=== PATIENT | female | born 1965 | race Caucasian/White ===

== ENCOUNTER 2018-12-20 06:49 | Inpatient (IN) | payer BC ==
[~2018-12-20 06:49] MED LIST: Acetaminophen 325 MG Tab PO SCH; Bisacodyl 5 MG Tab PO PRN; Lidocaine 1%/Sod Bicarbonate in NS 8.4% 1 ML Syringe IDERM PRN; Magnesium Hydroxide 400 MG/5 ML Susp 30 ML Cup PO PRN; Morphine 2 MG/ML Syringe IVPUSH PRN; Naloxone 0.4 MG/ML SDV IVPUSH PRN; Ondansetron 4 MG/2 ML SDV IVPUSH PRN; Pregabalin 25 MG Cap PO SCH; Sennosides 8.6 MG Tab PO PRN; Sodium Chloride 0.9% 10 ML Syringe FLUSH PRN; ceFAZolin 2 GM in Premix Bag 1 BAG IV SCH; oxyCODONE ER 10 MG TAB.ER PO SCH
[2018-12-20] MEDS ORDERED: Rocuronium 50 MG/5 ML Vial ONE (07:06)
[2018-12-20] MEDS ORDERED: Succinylcholine/Normal Saline 100 MG/5 ML Syringe ONE (07:06)
[2018-12-20] MEDS ORDERED: Lidocaine 1% 4 ML ONE (07:06)
[2018-12-20] MEDS ORDERED: Ondansetron 4 MG/2 ML SDV ONE (07:06)
[2018-12-20] MEDS ORDERED: Lactated Ringers 1,000 ML ONE (07:06)
[2018-12-20] MEDS ORDERED: Ketorolac 30 MG/ML SDV ONE (07:07)
[2018-12-20] MEDS ORDERED: Bupivacaine 0.25% 10 ML SDV ONE (07:07)
[2018-12-20] MEDS ORDERED: Dexamethasone 4 MG/ML 5 ML MDV ONE (07:07)
[2018-12-20] MEDS ORDERED: ceFAZolin 1 GM Vial ONE ×2 (07:07→07:24)
[2018-12-20] MEDS ORDERED: Propofol 200 MG/20 ML SDV ONE ×2 (07:07→09:08)
[2018-12-20] MEDS ORDERED: Midazolam 1 MG/ML 2 ML SDV ONE (07:07)
[2018-12-20] MEDS ORDERED: fentaNYL 250 MCG/5 ML SDV ONE (07:07)
[2018-12-20] MEDS: Lactated Ringers 1,000 ML IV SCH ×2 (07:15→12:01)
[2018-12-20] MEDS ORDERED: EPINEPHrine 1 MG/1 ML Amp ONE (07:19)
[2018-12-20] MEDS ORDERED: Ropivacaine 0.5% 5 MG/ML 30 ML SDV ONE (07:19)
[2018-12-20] MEDS ORDERED: Vancomycin 1 GM SDV ONE (07:24)
[2018-12-20] MEDS ORDERED: Iodine/Sodium Iodide 2% Tincture 30 ML Bottle ONE (07:25)
[2018-12-20] MEDS ORDERED: Lidocaine 1% 2 ML ONE (07:26)
--- NOTE | 2018-12-20 08:27 | PCM.SN ---
- Free Text/Narrative Note: Anesthesia Note: (Left Interscalene Block Note) Date: 12/20/2018 Time Out: 0749 Start: 0750 Stop: 0802 Left interscalene block under US guidance for postoperative pain control requested by Dr. Horton. Patient chart reviewed, risk/benefits discussed with patient, consent obtained. Patient positioned supine, monitors/alarms on, oxygen placed via nasal cannula at 2 LPM. IV sedation administered: Versed 2mg IV, Fentanyl 100mcg IV given in prior to block placement. See Nursing Notes. Left shoulder prepped with two chlorapreps. Sterile drapes placed with aseptic technique noted. Under US guidance, left subclavian artery visualized along with the left brachial plexus. Plexus followed up to C6 cricoid level, and area localized with 1mls of 1% lidocaine. 22gauge 2 inch stimiplex needle advanced under US with 0.6mV with stimulation of biceps noted. Good stimulation noted with decreased voltage and absent at 0.2mVs. 1ml of Normal Saline injected with loss of stimulation noted to confirm needle not placed intraneurally. Incremental dosing of 5mls with negative aspiration noted prior to each injection of 0.5% ropivacaine with 1:200,000 epinephrine. Total volume=30mls. Patient tolerated procedure well. No complications noted. Please refer to nurses notes for vital signs. Leila Morrow CRNA
[2018-12-20] MEDS ORDERED: Phenylephrine/Normal Saline 100 MCG/ML 10 ML Syringe ONE (09:27)
[2018-12-20] MEDS: ceFAZolin 1 GM Vial ONE ×2 (10:05→10:11)
--- NOTE | 2018-12-20 10:09 | PCM.PREANE ---
Preanesthetic Assessment - Anesthesia/Transfusion/Family Hx Anesthesia History: Prior Anesthesia Reaction Family History of Anesthesia Reaction: No Transfusion History: No Prior Transfusion(s) - Review of Systems General: No Symptoms Pulmonary: No Symptoms (Former Smoker, Quit 2 years ago, hoarse voice, dry cough on occasion. ) Cardiovascular: No Symptoms (Murmur noted, no intervention needed per primary care. No symptoms. > 4 MET capacity. ) Gastrointestinal: No Symptoms Neurological: Headache (Migraines) Other: Reports: None (Neck injury at 17 years old, C2 healed. C5-C7 Fusion, good ROM. Morbid Obesity BMI 44. ), Thyroid Problems - Physical Assessment NPO Status Date: 12/19/18 NPO Status Time: 22:30 Vital Signs: Last Vital Signs Temp 36.1 C 12/20/18 07:00 Pulse 70 12/20/18 08:05 Resp 13 12/20/18 08:05 BP 113/62 12/20/18 08:05 Pulse Ox 96 12/20/18 08:05 Height: 1.73 m Weight: 129.727 kg ASA Class: 3 Mental Status: Alert & Oriented x3 Airway Class: Mallampati = 1 Dentition: Reports: Normal Dentition Thyro-Mental Finger Breadths: 2 Mouth Opening Finger Breadths: 3 ROM/Head Extension: Full Lungs: Clear to Auscultation, Normal Respiratory Effort Cardiovascular: Regular Rate, Regular Rhythm - Lab Values: Laboratory Last Values MRSA (PCR) Negative 11/20/18 09:20 - Allergies Allergies/Adverse Reactions: Allergies Allergy/AdvReac Type Severity Reaction Status Date / Time Iodinated Contrast Media Allergy Anaphylactic Verified 12/19/18 14:21 [Iodinated Contrast Media - Shock IV Dye] Penicillins Allergy Rash Verified 12/19/18 14:21 naproxen sodium [From Aleve] AdvReac Stomach Verified 12/19/18 14:21 Ache Sulfa (Sulfonamide AdvReac Nausea Verified 12/19/18 14:21 Antibiotics) - Anesthesia Plan Pre-Op Medication Ordered: Anxiolytic - Acknowledgements Anesthesia Type Planned: General Anesthesia, Regional Block (Interscalene Nerve Block) Pt an Appropriate Candidate for the Planned Anesthesia: Yes Alternatives and Risks of Anesthesia Discussed w Pt/Guardian: Yes Pt/Guardian Understands and Agrees with Anesthesia Plan: Yes PreAnesthesia Questionnaire Other HEENT History: myringitis Cardiovascular History: Reports: High Cholesterol Respiratory History: Reports: None Gastrointestinal History: Reports: None Genitourinary History: Reports: Other (See Below) Other Genitourinary History: diagnostic laparoscopy with lysis of adhesions [employer]IAN History: Reports: Endometriosis, Spontaneous Musculoskeletal History: Reports: Other (See Below) Other Musculoskeletal History: right knee fracture, muscle spasm, back pain, rib fracture, lateral epicondylitis, left shoulder pain, right foot pain Neurological History: Reports: Migraines, Other (See Below) Other Neuro History: neck injury, head trauma, c3 cervical fracture Psychiatric History: Reports: None Endocrine/Metabolic History: Reports: Hypothyroidism, Obesity/BMI 30+ Hematologic History: Reports: None Immunologic History: Reports: None Oncologic (Cancer) History: Reports: None Dermatologic History: Reports: None - Past Surgical History Head Surgeries/Procedures: Reports: None HEENT Surgical History: Reports: LASIK Cardiovascular Surgical History: Reports: None Respiratory Surgical History: Reports: None GI Surgical History: Reports: Colonoscopy, EGD Female Surgical History: Reports: Hysterectomy Male Surgical History: Reports: None Endocrine Surgical History: Reports: None Neurological Surgical History: Reports: C-Spine, Other (See Below) Other Neurological Surgeries/Procedures: c5c7 fusion Musculoskeletal Surgical History: Reports: Other (See Below) Other Musculoskeletal Surgeries/Procedures:: knee hardware removal, bilateral total knee replacements Oncologic Surgical History: Reports: None Dermatological Surgical History: Reports: None - SUBSTANCE USE Smoking Status *Q: Former Smoker Recreational Drug Use History: No - HOME MEDS Home Medications: Home Meds Levothyroxine 200 mcg PO DAILY 07/24/14 [History] valACYclovir HCl [valACYclovir] 1,000 tab PO BID PRN 08/01/14 [History] Cholecalciferol (Vitamin D3) [Vitamin D3] 5,000 unit PO DAILY 12/19/18 [History] Clindamycin HCl [Cleocin] 150 mg PO ASDIRECTED PRN 12/19/18 [History] Cyclobenzaprine [Flexeril] 10 mg PO BEDTIME PRN 12/19/18 [History] traMADol [Ultram] 50 mg PO Q6H PRN 12/19/18 [History] - CURRENT (IN HOUSE) MEDS Current Meds: Current Medications Acetaminophen (Tylenol) 975 mg PO ONETIME [facility] Stop: 12/20/18 12:30 Last Admin: 12/20/18 07:07 Dose: 975 mg Aspirin (Ecotrin) 325 mg PO BID [facility] Bisacodyl (Dulcolax) 5 mg PO DAILY PRN PRN Reason: Constipation Docusate Sodium (Colace) 100 mg PO BID [facility] Famotidine (Pepcid) 20 mg PO Q12H [facility] Lactated Ringer's (Ringers, Lactated) 1,000 mls @ 125 mls/hr IV ASDIRECTED [facility] Stop: 12/20/18 23:00 Last Admin: 12/20/18 07:15 Dose: 125 mls/hr Cefazolin Sodium/Dextrose 2 gm (/ Premix) 50 mls @ 100 mls/hr IV Q8H [facility] Stop: 12/21/18 07:29 Ketorolac Tromethamine (Toradol) 15 mg IVPUSH Q6H PRN PRN Reason: Pain Lidocaine/Sodium Bicarbonate (Buffered Lidocaine 1% In Ns 8.4%) 0.25 ml IDERM ONETIME PRN PRN Reason: Prior to IV Start Stop: 12/20/18 18:00 Last Admin: 12/20/18 07:14 Dose: 0.25 ml Magnesium Hydroxide (Milk Of Magnesia) 30 ml PO BID PRN PRN Reason: Constipation Morphine Sulfate (Morphine) 2 mg IVPUSH Q2H PRN PRN Reason: Breakthrough Pain Naloxone HCl (Narcan) 0.1 mg IVPUSH Q5M PRN PRN Reason: Oversedation Ondansetron HCl (Zofran) 4 mg IVPUSH Q6H PRN PRN Reason: Nausea/Vomiting Oxycodone HCl (Oxycontin) 10 mg PO ONETIME [facility] Stop: 12/20/18 12:30 Last Admin: 12/20/18 07:08 Dose: 10 mg Oxycodone/Acetaminophen (Percocet 325-5 Mg) 1 - 2 tab PO Q4H PRN PRN Reason: Pain Pregabalin (Lyrica) 50 mg PO ONETIME [facility] Stop: 12/20/18 12:30 Last Admin: 12/20/18 07:08 Dose: 50 mg Senna (Senna) 8.6 mg PO BID PRN PRN Reason: Constipation Sodium Chloride (Saline Flush) 10 ml FLUSH ASDIRECTED PRN PRN Reason: Keep Vein Open Stop: 12/20/18 18:00 Discontinued Medications Bupivacaine HCl (Sensorcaine-Mpf 0.25%) Confirm Administered Dose 10 ml .ROUTE .ST-[facility] ONE Stop: 12/20/18 07:08 Cefazolin Sodium (Ancef) Confirm Administered Dose 2 gm .ROUTE .ST-[facility] ONE Stop: 12/20/18 07:07 Cefazolin Sodium (Ancef) Confirm Administered Dose 1 gm .ROUTE .ST-[facility] ONE Stop: 12/20/18 07:08 Cefazolin Sodium (Ancef) Confirm Administered Dose 2 gm .ROUTE .ST-[facility] ONE Stop: 12/20/18 07:25 Dexamethasone (Dexamethasone) Confirm Administered Dose 20 mg .ROUTE .ST-[facility] ONE Stop: 12/20/18 07:08 Epinephrine HCl (Adrenalin) Confirm Administered Dose 1 mg .ROUTE .[facility] ONE Stop: 12/20/18 07:20 Fentanyl (Sublimaze) Confirm Administered Dose 250 mcg .ROUTE .ST-[facility] ONE Stop: 12/20/18 07:08 Cefazolin Sodium/Dextrose 2 gm (/ Premix) 50 mls @ 100 mls/hr IV Q8H [facility] Stop: 12/20/18 22:59 Lidocaine HCl (Xylocaine-Mpf 1%) Confirm Administered Dose 4 mls @ as directed .ROUTE .[facility] ONE Stop: 12/20/18 07:07 Lactated Ringer's (Ringers, Lactated) Confirm Administered Dose 1,000 mls @ as directed .ROUTE .[facility] ONE Stop: 12/20/18 07:07 Lidocaine HCl (Xylocaine-Mpf 1%) Confirm Administered Dose 2 mls @ as directed .ROUTE .[facility] ONE Stop: 12/20/18 07:27 Iodine (Iodine 2% Mild Tincture) Confirm Administered Dose 30 ml .ROUTE .ST- MED ONE Stop: 12/20/18 07:26 Ketorolac Tromethamine (Toradol) Confirm Administered Dose 30 mg .ROUTE .ST- MED ONE Stop: 12/20/18 07:08 Midazolam HCl (Versed 1 Mg/Ml) Confirm Administered Dose 2 mg .ROUTE .STK-[facility] ONE Stop: 12/20/18 07:08 Ondansetron HCl (Zofran) Confirm Administered Dose 4 mg .ROUTE .ST-[facility] ONE Stop: 12/20/18 07:07 Phenylephrine HCl (Phenylephrine In Ns 100 Mcg/Ml) Confirm Administered Dose 1 mg .ROUTE .STK-MED ONE Stop: 12/20/18 09:28 Propofol (Diprivan 20 Ml) Confirm Administered Dose 400 mg .ROUTE .STK-MED ONE Stop: 12/20/18 07:08 Propofol (Diprivan 20 Ml) Confirm Administered Dose 200 mg .ROUTE .STK-MED ONE Stop: 12/20/18 09:09 Rocuronium Beemer (Zemuron) Confirm Administered Dose 50 mg .ROUTE .STK-MED ONE Stop: 12/20/18 07:07 Ropivacaine (Naropin 0.5%) Confirm Administered Dose 30 ml .ROUTE .[facility]-MED ONE Stop: 12/20/18 07:20 Succinylcholine Chloride (Succinylcholine In Ns Pf) Confirm Administered Dose 100 mg .ROUTE .STK-MED ONE Stop: 12/20/18 07:07 Tranexamic Acid (Cyklokapron) Confirm Administered Dose 1,000 mg .ROUTE .STK- MED ONE Stop: 12/20/18 07:25 Vancomycin HCl (Vancomycin) Confirm Administered Dose 1 gm .ROUTE .STK-MED ONE Stop: 12/20/18 07:25
[2018-12-20] MEDS ORDERED: HYDROmorphone 0.5 MG/0.5 ML Syringe IVPUSH PRN (10:20)
[2018-12-20] MEDS ORDERED: fentaNYL 100 MCG/2 ML SDV EPIDUR PRN (10:20)
[2018-12-20] MEDS ORDERED: Albuterol 0.083% 2.5 MG/3 ML Neb Soln NEB PRN (10:20)
[2018-12-20] MEDS ORDERED: Ondansetron 4 MG/2 ML SDV IVPUSH PRN (10:20)
[2018-12-20] MEDS ORDERED: diphenhydrAMINE 50 MG/ML SDV IVPUSH PRN (10:20)
[2018-12-20] MEDS ORDERED: Scopolamine 1.5 MG Transdermal Patch TOP PRN (10:20)
[2018-12-20] MEDS ORDERED: Neostigmine Methylsulfate 1 MG/ML 5 ML Syringe ONE (10:30)
--- NOTE | 2018-12-20 10:55 | PCM.POSTAN ---
POST ANESTHESIA ASSESSMENT - MENTAL STATUS Mental Status: Other (Drowsy) - VITAL SIGNS Vital Signs: Last Vital Signs 1049 135/81 82 11 92% 97.9F - RESPIRATORY Respiratory Status: Respiratory Rate WNL, Airway Patent, O2 Saturation Stable, Supplemental Oxygen - CARDIOVASCULAR CV Status: Pulse Rate WNL, Blood Pressure Stable - GASTROINTESTINAL GI Status: No Symptoms - PAIN Pain Score: 0 - POST OP HYDRATION Hydration Status: Adequate & Stable
[2018-12-20] MEDS ORDERED: valACYclovir 1,000 MG Tab PO PRN (13:46)
[2018-12-20] MEDS: ceFAZolin 2 GM in Premix Bag 1 BAG IV SCH ×2 (14:11→23:35)
[2018-12-20] MEDS: ceFAZolin 1 GM in Premix Bag 1 BAG IV SCH ×2 (14:11→23:35)
--- NOTE | 2018-12-20 16:16 | PCM.CONS ---
H&P History of Present Illness - General Date of Service: 12/20/18 Admit Problem/Dx: Admission Diagnosis/Problem Admission Diagnosis/Problem Osteoarthritis of shoulder - History of Present Illness Initial Comments - Free Text/Narative: 53-year-old female with left shoulder primary osteoarthritis underwent a left reverse total shoulder arthroplasty by Dr. Rodriguez today. We were asked for medical management. Patient is postop and doing well. She denies any shortness of breath, chest pain, edema, orthopnea, or PND. Currently has no pain. She is on Synthroid as her only chronic medication. Hemoglobin A1c done 12/04/2018 was 6.2. Left Shoulder Pain Score (Numeric/FACES): 5 - Related Data Allergies/Adverse Reactions: Allergies Allergy/AdvReac Type Severity Reaction Status Date / Time Iodinated Contrast Media Allergy Anaphylactic Verified 12/19/18 14:21 [Iodinated Contrast Media - Shock IV Dye] Penicillins Allergy Rash Verified 12/19/18 14:21 naproxen sodium [From Aleve] AdvReac Stomach Verified 12/19/18 14:21 Ache Sulfa (Sulfonamide AdvReac Nausea Verified 12/19/18 14:21 Antibiotics) Home Medications: Home Meds Levothyroxine 200 mcg PO DAILY 07/24/14 [History] valACYclovir HCl [valACYclovir] 1,000 tab PO BID PRN 08/01/14 [History] Cholecalciferol (Vitamin D3) [Vitamin D3] 5,000 unit PO DAILY 12/19/18 [History] Clindamycin HCl [Cleocin] 150 mg PO ASDIRECTED PRN 12/19/18 [History] Cyclobenzaprine [Flexeril] 10 mg PO BEDTIME PRN 12/19/18 [History] traMADol [Ultram] 50 mg PO Q6H PRN 12/19/18 [History] Past Medical History Other HEENT History: myringitis Cardiovascular History: Reports: High Cholesterol Respiratory History: Reports: None Gastrointestinal History: Reports: None Genitourinary History: Reports: Other (See Below) Other Genitourinary History: diagnostic laparoscopy with lysis of adhesions [employer] History: Reports: Endometriosis, Spontaneous Musculoskeletal History: Reports: Other (See Below) Other Musculoskeletal History: right knee fracture, muscle spasm, back pain, rib fracture, lateral epicondylitis, left shoulder pain, right foot pain Neurological History: Reports: Migraines, Other (See Below) Other Neuro History: neck injury, head trauma, c3 cervical fracture Psychiatric History: Reports: None Endocrine/Metabolic History: Reports: Hypothyroidism, Obesity/BMI 30+ Hematologic History: Reports: None Immunologic History: Reports: None Oncologic (Cancer) History: Reports: None Dermatologic History: Reports: None - Past Surgical History Head Surgeries/Procedures: Reports: None HEENT Surgical History: Reports: LASIK Cardiovascular Surgical History: Reports: None Respiratory Surgical History: Reports: None GI Surgical History: Reports: Colonoscopy, EGD Female Surgical History: Reports: Hysterectomy Endocrine Surgical History: Reports: None Neurological Surgical History: Reports: C-Spine, Other (See Below) Other Neurological Surgeries/Procedures: c5c7 fusion Musculoskeletal Surgical History: Reports: Other (See Below) Other Musculoskeletal Surgeries/Procedures:: knee hardware removal, bilateral total knee replacements Oncologic Surgical History: Reports: None Dermatological Surgical History: Reports: None Social & Family History - Family History Family Medical History: Noncontributory - Tobacco Use Smoking Status *Q: Former Smoker Used Tobacco, but Quit: Yes Month/Year Tobacco Last Used: 2016 - Caffeine Use Caffeine Use: Reports: Coffee - Recreational Drug Use Recreational Drug Use: No H&P Review of Systems - Review of Systems: Review Of Systems: ROS reveals no pertinent complaints other than HPI. Exam - Exam Exam: See Below - Vital Signs Vital Signs: Last Vital Signs Temp 97.0 F 12/20/18 11:50 Pulse 86 12/20/18 13:02 Resp 18 12/20/18 12:31 BP 129/82 12/20/18 13:02 Pulse Ox 92 L 12/20/18 13:02 Weight: 286 lb - Exam Quality Assessment: No: Supplemental Oxygen General: Alert, Oriented, 4 HEENT: Conjunctiva Clear, Hearing Intact, Mucosa Moist & [place], Nares Patent, Normal Nasal Septum, TMs Clear Neck: Supple, Trachea Midline, 2 Lungs: Clear to Auscultation, Normal Respiratory Effort Cardiovascular: Regular Rate, Regular Rhythm GI/Abdominal Exam: Normal Bowel Sounds, Soft, Non-Tender, No Organomegaly, No Distention, No Abnormal Bruit, No Mass Extremities: Normal Inspection (left arm and shoulder sling), No Pedal Edema Skin: Warm, Dry, Intact Neurological: Cranial Nerves Intact Neuro Extensive - Mental Status: Alert, Oriented x3, Normal Mood/Affect, Normal Cognition Psychiatric: Alert, Normal Affect, Normal Mood Consult PN Assessment/Plan Procedures: Procedures CHEST X-RAY 2VW FRONTAL&LATL (07/31/14) COMP SCREEN MAMMOGRAM ADD-ON (06/09/15) COMPLETE CBC W/AUTO DIFF WBC (07/31/14) COMPREHEN METABOLIC PANEL (07/31/14) COMPUTER DX MAMMOGRAM ADD-ON (03/23/16) EMERGENCY DEPT VISIT (07/24/14) MANUAL THERAPY 1/> REGIONS (06/08/16) MECHANICAL TRACTION THERAPY (04/28/16) MRI JNT OF LWR EXTRE W/O DYE (07/25/14) MRI JOINT UPR EXTREM W/O DYE (05/16/17) MRI LUMBAR SPINE W/O DYE (10/09/13) MRI NECK SPINE W/O DYE (03/23/16) PROTHROMBIN TIME (07/31/14) PT EVAL LOW COMPLEX 20 MIN (06/08/16) PT EVAL MOD COMPLEX 30 MIN (04/28/16) ROUTINE VENIPUNCTURE (07/31/14) THERAPEUTIC EXERCISES (06/08/16) THROMBOPLASTIN TIME PARTIAL (07/31/14) ULTRASOUND BREAST LIMITED (03/30/16) URINALYSIS AUTO W/SCOPE (07/31/14) X-RAY EXAM KNEE 4 OR MORE (07/24/14) X-RAY EXAM NECK SPINE 2-3 VW (06/08/16) X-RAY EXAM NECK SPINE 6/>VWS (03/30/16) X-RAY EXAM OF FOREARM (01/15/18) Problem List Initiated/Reviewed/Updated: Yes Plan: Assessment * 53-year-old female status post left reverse total shoulder arthroplasty * Hypothyroidism * Prediabetes based on hemoglobin A1c of 6.2 Plan * Medical consultation * Follow patient's blood pressure * Restart home meds * Pain management and VTE prophylaxis per primary care team * we'll follow along.
[2018-12-20] MEDS: Famotidine 20 MG Tab PO SCH ×2 (17:50→19:31)
[2018-12-20] MEDS: Docusate Sodium 100 MG Cap PO SCH (21:40)
[2018-12-20] MEDS: Acetaminophen/oxyCODONE 325-5 MG Tab PO PRN (21:40)
[2018-12-21] MEDS: Acetaminophen/oxyCODONE 325-5 MG Tab PO PRN ×3 (02:36→10:34)
[2018-12-21] MEDS: Ketorolac 15 MG/ML SDV IVPUSH PRN ×2 (06:32→12:42)
[2018-12-21] MEDS: ceFAZolin 1 GM in Premix Bag 1 BAG IV SCH (06:36)
[2018-12-21] MEDS: ceFAZolin 2 GM in Premix Bag 1 BAG IV SCH (06:36)
[2018-12-21] MEDS: Famotidine 20 MG Tab PO SCH (06:37)
--- NOTE | 2018-12-21 08:13 | PCM.SURGPN ---
- General Info Date of Service: 12/21/18 POD#: 1 Functional Status: Reports: Pain Controlled, Tolerating Diet, Ambulating, Urinating, Incentive Spirometry (The pt states her pain has been controlled.), Other - Patient Data Vitals - Most Recent: Last Vital Signs Temp 97.0 F 12/21/18 06:26 Pulse 54 L 12/21/18 06:26 Resp 16 12/21/18 06:26 BP 132/81 12/21/18 06:26 Pulse Ox 92 L 12/21/18 06:26 Weight - Most Recent: 295 lb 1.6 oz I&O - Last 24 Hours: Intake & Output 12/20/18 12/21/18 12/21/18 22:59 06:59 14:59 Intake Total 1700 1300 Output Total 2900 Balance 1700 -1600 Lab Results Last 24 Hrs: Laboratory Results - last 24 hr 12/21/18 12/21/18 Range/Units 04:20 04:20 WBC 5.20 (3.98-10.04) K/mm3 RBC 3.46 L (3.98-5.22) M/mm3 Hgb 10.2 L (11.2-15.7) gm/L Hct 32.3 L (34.1-44.9) % MCV 93.4 D (79.4-94.8) fl MCH 29.5 (25.6-32.2) pg MCHC 31.6 L (32.2-35.5) g/dl RDW Std Deviation 47.0 H (36.4-46.3) fL Plt Count 177 L (182-369) K/mm3 MPV 11.1 (9.4-12.3) fl Sodium 139 (136-145) mEq/L Potassium 4.0 (3.5-5.1) mEq/L Chloride 105 (98-107) mEq/L Carbon Dioxide 26 (21-32) mEq/L Anion Gap 12.0 (5-15) BUN 14 (7-18) mg/dL Creatinine 0.8 (0.55-1.02) mg/dL Est Cr Clr Drug Dosing 80.15 mL/min Estimated GFR (MDRD) > 60 (>60) mL/min BUN/Creatinine Ratio 17.5 (14-18) Glucose 134 H (74-106) mg/dL Calcium 8.4 L (8.5-10.1) mg/dL Total Bilirubin 0.1 L (0.2-1.0) mg/dL AST 19 (15-37) U/L ALT 25 (14-59) U/L Alkaline Phosphatase 46 (46-116) U/L Total Protein 7.7 (6.4-8.2) g/dl Albumin 2.9 L (3.4-5.0) g/dl Globulin 4.8 gm/dL Albumin/Globulin Ratio 0.6 L (1-2) Med Orders - Current: Current Medications Aspirin (Ecotrin) 325 mg PO BID [facility] Bisacodyl (Dulcolax) 5 mg PO DAILY PRN PRN Reason: Constipation Cholecalciferol (Vitamin D3) 5,000 unit PO DAILY [facility] Docusate Sodium (Colace) 100 mg PO BID [facility] Last Admin: 12/20/18 21:40 Dose: 100 mg Famotidine (Pepcid) 20 mg PO Q12H [facility] Last Admin: 12/21/18 06:37 Dose: 20 mg Ketorolac Tromethamine (Toradol) 15 mg IVPUSH Q6H PRN PRN Reason: Pain Last Admin: 12/21/18 06:32 Dose: 15 mg Levothyroxine Sodium (Levothyroxine) 200 mcg PO DAILY [facility] Magnesium Hydroxide (Milk Of Magnesia) 30 ml PO BID PRN PRN Reason: Constipation Morphine Sulfate (Morphine) 2 mg IVPUSH Q2H PRN PRN Reason: Breakthrough Pain Naloxone HCl (Narcan) 0.1 mg IVPUSH Q5M PRN PRN Reason: Oversedation Ondansetron HCl (Zofran) 4 mg IVPUSH Q6H PRN PRN Reason: Nausea/Vomiting Oxycodone/Acetaminophen (Percocet 325-5 Mg) 1 - 2 tab PO Q4H PRN PRN Reason: Pain Last Admin: 12/21/18 06:26 Dose: 2 tab Scopolamine (Transderm-Scop) 1.5 mg TOP ONETIME PRN PRN Reason: Nausea Senna (Senna) 8.6 mg PO BID PRN PRN Reason: Constipation Discontinued Medications Acetaminophen (Tylenol) 975 mg PO ONETIME [facility] Stop: 12/20/18 12:30 Last Admin: 12/20/18 07:07 Dose: 975 mg Albuterol (Proventil Neb Soln) 2.5 mg NEB ONETIME PRN PRN Reason: Shortness of Breath Stop: 12/20/18 14:00 Bupivacaine HCl (Sensorcaine-Mpf 0.25%) Confirm Administered Dose 10 ml .ROUTE .STK-MED ONE Stop: 12/20/18 07:08 Cefazolin Sodium (Ancef) Confirm Administered Dose 2 gm .ROUTE .STK-MED ONE Stop: 12/20/18 07:07 Last Admin: 12/20/18 10:11 Dose: 2 gm Cefazolin Sodium (Ancef) Confirm Administered Dose 1 gm .ROUTE .STK-MED ONE Stop: 12/20/18 07:08 Cefazolin Sodium (Ancef) Confirm Administered Dose 2 gm .ROUTE .STK-MED ONE Stop: 12/20/18 07:25 Dexamethasone (Dexamethasone) Confirm Administered Dose 20 mg .ROUTE .STK-MED ONE Stop: 12/20/18 07:08 Diphenhydramine HCl (Benadryl) 25 mg IVPUSH Q6H PRN PRN Reason: Pruritis Stop: 12/20/18 14:00 Epinephrine HCl (Adrenalin) Confirm Administered Dose 1 mg .ROUTE .ST-MED ONE Stop: 12/20/18 07:20 Fentanyl (Sublimaze) Confirm Administered Dose 250 mcg .ROUTE .STK-MED ONE Stop: 12/20/18 07:08 Fentanyl (Sublimaze) 100 mcg EPIDUR ONETIME PRN PRN Reason: Pain Stop: 12/20/18 14:00 Glycopyrrolate () Confirm Administered Dose 1 mg .ROUTE .STK-MED ONE Stop: 12/20/18 10:31 Hydromorphone HCl (Dilaudid) 0.5 mg IVPUSH Q15M PRN PRN Reason: severe pain Lactated Ringer's (Ringers, Lactated) 1,000 mls @ 125 mls/hr IV ASDIRECTED [facility] Stop: 12/20/18 23:00 Last Admin: 12/20/18 12:01 Dose: 125 mls/hr Cefazolin Sodium/Dextrose 2 gm (/ Premix) 50 mls @ 100 mls/hr IV Q8H [facility] Stop: 12/20/18 22:59 Last Admin: 12/20/18 20:10 Dose: Not Given Lidocaine HCl (Xylocaine-Mpf 1%) Confirm Administered Dose 4 mls @ as directed .ROUTE .STK-MED ONE Stop: 12/20/18 07:07 Lactated Ringer's (Ringers, Lactated) Confirm Administered Dose 1,000 mls @ as directed .ROUTE .STK-MED ONE Stop: 12/20/18 07:07 Lidocaine HCl (Xylocaine-Mpf 1%) Confirm Administered Dose 2 mls @ as directed .ROUTE .STK-MED ONE Stop: 12/20/18 07:27 Cefazolin Sodium/Dextrose 2 gm (/ Premix) 50 mls @ 100 mls/hr IV Q8H [facility] Stop: 12/21/18 07:29 Last Admin: 12/21/18 06:36 Dose: 100 mls/hr Cefazolin Sodium/Dextrose 1 gm (/ Premix) 50 mls @ 100 mls/hr IV Q8H [facility] Stop: 12/21/18 07:29 Last Admin: 12/21/18 06:36 Dose: 100 mls/hr Iodine (Iodine 2% Mild Tincture) Confirm Administered Dose 30 ml .ROUTE .STK- MED ONE Stop: 12/20/18 07:26 Last Admin: 12/20/18 10:09 Dose: 18 ml Ketorolac Tromethamine (Toradol) Confirm Administered Dose 30 mg .ROUTE .STK- MED ONE Stop: 12/20/18 07:08 Lidocaine/Sodium Bicarbonate (Buffered Lidocaine 1% In Ns 8.4%) 0.25 ml IDERM ONETIME PRN PRN Reason: Prior to IV Start Stop: 12/20/18 18:00 Last Admin: 12/20/18 07:14 Dose: 0.25 ml Midazolam HCl (Versed 1 Mg/Ml) Confirm Administered Dose 2 mg .ROUTE .STK-MED ONE Stop: 12/20/18 07:08 Neostigmine Methylsulfate (Neostigmine) Confirm Administered Dose 5 mg .ROUTE .STK-MED ONE Stop: 12/20/18 10:31 Ondansetron HCl (Zofran) Confirm Administered Dose 4 mg .ROUTE .STK-MED ONE Stop: 12/20/18 07:07 Ondansetron HCl (Zofran) 4 mg IVPUSH ONETIME PRN PRN Reason: Nausea/Vomiting Stop: 12/20/18 14:00 Oxycodone HCl (Oxycontin) 10 mg PO ONETIME [facility] Stop: 12/20/18 12:30 Last Admin: 12/20/18 07:08 Dose: 10 mg Phenylephrine HCl (Phenylephrine In Ns 100 Mcg/Ml) Confirm Administered Dose 1 mg .ROUTE .STK-MED ONE Stop: 12/20/18 09:28 Pregabalin (Lyrica) 50 mg PO ONETIME [facility] Stop: 12/20/18 12:30 Last Admin: 12/20/18 07:08 Dose: 50 mg Propofol (Diprivan 20 Ml) Confirm Administered Dose 400 mg .ROUTE .STK-MED ONE Stop: 12/20/18 07:08 Propofol (Diprivan 20 Ml) Confirm Administered Dose 200 mg .ROUTE .STK-MED ONE Stop: 12/20/18 09:09 Rocuronium [place] (Zemuron) Confirm Administered Dose 50 mg .ROUTE .STK-MED ONE Stop: 12/20/18 07:07 Ropivacaine (Naropin 0.5%) Confirm Administered Dose 30 ml .ROUTE .STK-MED ONE Stop: 12/20/18 07:20 Sodium Chloride (Saline Flush) 10 ml FLUSH ASDIRECTED PRN PRN Reason: Keep Vein Open Stop: 12/20/18 18:00 Succinylcholine Chloride (Succinylcholine In Ns Pf) Confirm Administered Dose 100 mg .ROUTE .STK-MED ONE Stop: 12/20/18 07:07 Tranexamic Acid (Cyklokapron) Confirm Administered Dose 1,000 mg .ROUTE .STK- MED ONE Stop: 12/20/18 07:25 Last Admin: 12/20/18 10:15 Dose: 1,000 mg Valacyclovir HCl (Valtrex) mg PO BID PRN PRN Reason: cold sores Vancomycin HCl (Vancomycin) Confirm Administered Dose 1 gm .ROUTE .STK-MED ONE Stop: 12/20/18 07:25 Last Admin: 12/20/18 10:15 Dose: 1 gm - Exam Wound/Incisions: Dressing Dry and Intact General: Alert, Cooperative, No Acute Distress Lungs: Normal Respiratory Effort Extremities: Other (NVS intact for LUE.) - Problem List Review Problem List Initiated/Reviewed/Updated: Yes - My Orders Last 24 Hours: Active Orders 24 hr Category Date Time Status Communication Order [RC] ROUTINE Care 12/20/18 10:19 Active Cooling Warming Measures [RC] ASDIRECTED Care 12/20/18 10:19 Active Notify Provider [RC] ASDIRECTED Care 12/20/18 10:20 Active Pulse Oximetry [RC] ASDIRECTED Care 12/20/18 10:19 Active RT Aerosol Therapy [RC] ASDIRECTED Care 12/20/18 10:21 Active Ready for Discharge [RC] PER UNIT ROUTINE Care 12/21/18 08:11 Ordered Regular Diet [DIET] Diet 12/20/18 Lunch Active Fluoro Up To 1Hr [CR] Routine Exams 12/20/18 08:00 Taken Aspirin [Ecotrin] Med 12/21/18 09:00 Active 325 mg PO BID Cholecalciferol (Vitamin D3) [Vitamin D3] Med 12/21/18 09:00 Active 5,000 unit PO DAILY Docusate Sodium [Colace] Med 12/20/18 21:00 Active 100 mg PO BID Levothyroxine Med 12/21/18 09:00 Active 200 mcg PO DAILY Scopolamine [Transderm-Scop] Med 12/20/18 10:20 Active 1.5 mg TOP ONETIME PRN Medication Orders Aspirin (Ecotrin) 325 mg PO BID [facility] Bisacodyl (Dulcolax) 5 mg PO DAILY PRN PRN Reason: Constipation Cholecalciferol (Vitamin D3) 5,000 unit PO DAILY [facility] Docusate Sodium (Colace) 100 mg PO BID [facility] Last Admin: 12/20/18 21:40 Dose: 100 mg Famotidine (Pepcid) 20 mg PO Q12H [facility] Last Admin: 12/21/18 06:37 Dose: 20 mg Admin: 12/20/18 19:31 Dose: 20 mg Admin: 12/20/18 17:50 Dose: Not Given Ketorolac Tromethamine (Toradol) 15 mg IVPUSH Q6H PRN PRN Reason: Pain Last Admin: 12/21/18 06:32 Dose: 15 mg Levothyroxine Sodium (Levothyroxine) 200 mcg PO DAILY [facility] Magnesium Hydroxide (Milk Of Magnesia) 30 ml PO BID PRN PRN Reason: Constipation Morphine Sulfate (Morphine) 2 mg IVPUSH Q2H PRN PRN Reason: Breakthrough Pain Naloxone HCl (Narcan) 0.1 mg IVPUSH Q5M PRN PRN Reason: Oversedation Ondansetron HCl (Zofran) 4 mg IVPUSH Q6H PRN PRN Reason: Nausea/Vomiting Oxycodone/Acetaminophen (Percocet 325-5 Mg) 1 - 2 tab PO Q4H PRN PRN Reason: Pain Last Admin: 12/21/18 06:26 Dose: 2 tab Admin: 12/21/18 02:36 Dose: 2 tab Admin: 12/20/18 21:40 Dose: 2 tab Scopolamine (Transderm-Scop) 1.5 mg TOP ONETIME PRN PRN Reason: Nausea Senna (Senna) 8.6 mg PO BID PRN PRN Reason: Constipation - Assessment Assessment (Free Text/Narrative):: POD#1 - left reverse TSA - Plan Plan (Free Text/Narrative):: 1. Hgb 10.2. 2. Discharge to home today. 3. Outpatient therapy. 4. Percocet, Flexeril, ASA for home rx. The pt's case was discussed with Dr. Horton.
--- NOTE | 2018-12-21 08:15 | PCM.DCSUM1 ---
Discharge Summary - Hospital Course Brief History: Estee is a 53 yo female who underwent left reverse TSA with Dr. Horton on 12-20-2018. The procedure was completed under general anesthesia with regional block. The pt tolerated the procedure well and was admitted to the Medical-Surgical Unit. Medical management was provided by the Hospitalist service. The pt's Hospital course was uneventful. The pt's Hgb on POD#1 was 10.2. On POD#1, 325mg ASA BID was initiated for VTE prophylaxis. SCDs and TEDs were also ordered. A Mepilex dressing was placed at the incision site at the time of surgery and remained clean and dry. The pt participated in P.T. and O.T. and progressed well. On POD#1, the pt was deemed appropriate to discharge to home with her family. - Discharge Data Discharge Date: 12/21/18 Discharge Disposition: Home, Self-Care 01 Condition: Good - Referral to Home Health Primary Care Physician: Alistair Avelar MD - Patient Summary/Data Consults: Consultations 12/20/18 06:21 OT Evaluation and Treatment [CONS] Routine PT Evaluation and Treatment [CONS] Routine 12/20/18 06:22 Consult to Physician [CONS] Routine - Patient Instructions Diet: Usual Diet as Tolerated Activity: Apply Ice, As Tolerated, Elevate Extremity Activity, Other: NO forceful use of the surgical limb. Driving: Do Not Drive Showering/Bathing: May Shower Wound/Incision Care: Keep Operative Site/Wound Site Clean and Dry, Do NOT Change Dressing Notify Provider of: Fever, Increased Pain, Swelling and Redness, Drainage, Nausea and/or Vomiting Other/Special Instructions: Please get up and moving around EVERY HOUR while awake. This helps to prevent blood clots. Please have help with mobility as needed. Take a short walk in your home every hour while awake. Please take 325mg Aspirin TWICE daily. The aspirin is being used for blood clot prevention and not for pain management so please do not miss a dose of the medication. You could use a medication like Zantac or Pepcid and a medication like Prilosec or Nexium to protect your stomach while you are using the aspirin. At home, please complete the exercises that you learned during the Hospital stay. Schedule for occupational or physical therapy. Use the pain medication as needed. The medication may cause drowsiness and constipation. Contact your primary care provider for instructions if you are constipated. You may use a stool softener like docusate sodium or Colace 100mg twice daily and/or a laxative like Miralax daily for constipation. Increase your water and fiber intake while you are using the pain medication. Discontinue use of the pain medication as soon as able. Please do not use other medications that may cause drowsiness (other pain medications, anxiety pills, cold medications, sleeping pills, etc) while using the prescription pain medication. Do not use alcohol while using the pain medication. You may use acetaminophen or Tylenol for pain management, however, please ensure you are not using over 4000 mg or 4 grams of acetaminophen per day from all sources. Your pain medication has 325mg of acetaminophen per tablet. At this time, please do not use ibuprofen (Motrin, Advil) or naproxen (Aleve) for pain management as you are using the aspirin. When the aspirin course is completed in 4 to 6 weeks, you could use ibuprofen or naproxen for pain management (if this is allowed by your primary care provider). Wear the ANTONI hose during the day and you may remove these at night. Elevate the limb to decrease swelling. Place ice to the area often. Place a towel between your skin and the blue pad. Use the incentive spirometer often. Take deep breaths throughout the day. Please keep the dressing in place until follow-up. Notify the Clinic if the dressing becomes saturated. Increase your protein intake while you are healing. If you have diabetes, please closely monitor your blood sugars and notify your primary care provider with abnormal values. Elevated blood sugars increases the risk of infection. Call the Clinic with questions or concerns - [phone]. - Discharge Plan *PRESCRIPTION DRUG MONITORING PROGRAM REVIEWED*: No *COPY OF PRESCRIPTION DRUG MONITORING REPORT IN PATIENT [place]: No Prescriptions/Med Rec: Acetaminophen/oxyCODONE [Percocet 325-5 MG] 1 - 2 tab PO Q4H PRN #60 tablet PRN Reason: Pain Aspirin [Ecotrin EC] 325 mg PO BID #84 tab.ec Cyclobenzaprine [Flexeril] 10 mg PO BID PRN #40 tablet PRN Reason: Spasms Home Medications: Home Meds Levothyroxine 200 mcg PO DAILY 07/24/14 [History] valACYclovir HCl [valACYclovir] 1,000 tab PO BID PRN 08/01/14 [History] Cholecalciferol (Vitamin D3) [Vitamin D3] 5,000 unit PO DAILY 12/19/18 [History] Clindamycin HCl [Cleocin] 150 mg PO ASDIRECTED PRN 12/19/18 [History] Acetaminophen/oxyCODONE [Percocet 325-5 MG] 1 - 2 tab PO Q4H PRN #60 tablet [Rx] Aspirin [Ecotrin EC] 325 mg PO BID #84 tab.ec 12/21/18 [Rx] Bisacodyl [Dulcolax] 5 mg PO DAILY PRN tablet 12/21/18 [Rx] Cyclobenzaprine [Flexeril] 10 mg PO BID PRN #40 tablet 12/21/18 [Rx] Docusate Sodium [Colace] 100 mg PO BID cap 12/21/18 [Rx] Famotidine [Pepcid] 20 mg PO Q12H tablet 12/21/18 [Rx] Magnesium Hydroxide [Milk of Magnesia] 30 ml PO BID PRN cup 12/21/18 [Rx] Sennosides [Senna] 8.6 mg PO BID PRN tablet 12/21/18 [Rx] Referrals: Celia Campo PA-C [Physician [employer] Analyst] - - Discharge Summary/Plan Comment DC Time >30 min.: No - Patient Data Vitals - Most Recent: Last Vital Signs Temp 97.0 F 12/21/18 06:26 Pulse 54 L 12/21/18 06:26 Resp 16 12/21/18 06:26 BP 132/81 12/21/18 06:26 Pulse Ox 92 L 12/21/18 06:26 Weight - Most Recent: 295 lb 1.6 oz I&O - Last 24 hours: Intake & Output 12/20/18 12/21/18 12/21/18 22:59 06:59 14:59 Intake Total 1700 1300 Output Total 2900 Balance 1700 -1600 Lab Results - Last 24 hrs: Laboratory Results - last 24 hr 12/21/18 12/21/18 Range/Units 04:20 04:20 WBC 5.20 (3.98-10.04) K/mm3 RBC 3.46 L (3.98-5.22) M/mm3 Hgb 10.2 L (11.2-15.7) gm/L Hct 32.3 L (34.1-44.9) % MCV 93.4 D (79.4-94.8) fl MCH 29.5 (25.6-32.2) pg MCHC 31.6 L (32.2-35.5) g/dl RDW Std Deviation 47.0 H (36.4-46.3) fL Plt Count 177 L (182-369) K/mm3 MPV 11.1 (9.4-12.3) fl Sodium 139 (136-145) mEq/L Potassium 4.0 (3.5-5.1) mEq/L Chloride 105 (98-107) mEq/L Carbon Dioxide 26 (21-32) mEq/L Anion Gap 12.0 (5-15) BUN 14 (7-18) mg/dL Creatinine 0.8 (0.55-1.02) mg/dL Est Cr Clr Drug Dosing 80.15 mL/min Estimated GFR (MDRD) > 60 (>60) mL/min BUN/Creatinine Ratio 17.5 (14-18) Glucose 134 H (74-106) mg/dL Calcium 8.4 L (8.5-10.1) mg/dL Total Bilirubin 0.1 L (0.2-1.0) mg/dL AST 19 (15-37) U/L ALT 25 (14-59) U/L Alkaline Phosphatase 46 (46-116) U/L Total Protein 7.7 (6.4-8.2) g/dl Albumin 2.9 L (3.4-5.0) g/dl Globulin 4.8 gm/dL Albumin/Globulin Ratio 0.6 L (1-2) Med Orders - Current: Current Medications Aspirin (Ecotrin) 325 mg PO BID [facility] Bisacodyl (Dulcolax) 5 mg PO DAILY PRN PRN Reason: Constipation Cholecalciferol (Vitamin D3) 5,000 unit PO DAILY [facility] Docusate Sodium (Colace) 100 mg PO BID [facility] Last Admin: 12/20/18 21:40 Dose: 100 mg Famotidine (Pepcid) 20 mg PO Q12H [facility] Last Admin: 12/21/18 06:37 Dose: 20 mg Ketorolac Tromethamine (Toradol) 15 mg IVPUSH Q6H PRN PRN Reason: Pain Last Admin: 12/21/18 06:32 Dose: 15 mg Levothyroxine Sodium (Levothyroxine) 200 mcg PO DAILY [facility] Magnesium Hydroxide (Milk Of Magnesia) 30 ml PO BID PRN PRN Reason: Constipation Morphine Sulfate (Morphine) 2 mg IVPUSH Q2H PRN PRN Reason: Breakthrough Pain Naloxone HCl (Narcan) 0.1 mg IVPUSH Q5M PRN PRN Reason: Oversedation Ondansetron HCl (Zofran) 4 mg IVPUSH Q6H PRN PRN Reason: Nausea/Vomiting Oxycodone/Acetaminophen (Percocet 325-5 Mg) 1 - 2 tab PO Q4H PRN PRN Reason: Pain Last Admin: 12/21/18 06:26 Dose: 2 tab Scopolamine (Transderm-Scop) 1.5 mg TOP ONETIME PRN PRN Reason: Nausea Senna (Senna) 8.6 mg PO BID PRN PRN Reason: Constipation Discontinued Medications Acetaminophen (Tylenol) 975 mg PO ONETIME [facility] Stop: 12/20/18 12:30 Last Admin: 12/20/18 07:07 Dose: 975 mg Albuterol (Proventil Neb Soln) 2.5 mg NEB ONETIME PRN PRN Reason: Shortness of Breath Stop: 12/20/18 14:00 Bupivacaine HCl (Sensorcaine-Mpf 0.25%) Confirm Administered Dose 10 ml .ROUTE .STK-MED ONE Stop: 12/20/18 07:08 Cefazolin Sodium (Ancef) Confirm Administered Dose 2 gm .ROUTE .STK-MED ONE Stop: 12/20/18 07:07 Last Admin: 12/20/18 10:11 Dose: 2 gm Cefazolin Sodium (Ancef) Confirm Administered Dose 1 gm .ROUTE .STK-MED ONE Stop: 12/20/18 07:08 Cefazolin Sodium (Ancef) Confirm Administered Dose 2 gm .ROUTE .STK-MED ONE Stop: 12/20/18 07:25 Dexamethasone (Dexamethasone) Confirm Administered Dose 20 mg .ROUTE .STK-MED ONE Stop: 12/20/18 07:08 Diphenhydramine HCl (Benadryl) 25 mg IVPUSH Q6H PRN PRN Reason: Pruritis Stop: 12/20/18 14:00 Epinephrine HCl (Adrenalin) Confirm Administered Dose 1 mg .ROUTE .STK-MED ONE Stop: 12/20/18 07:20 Fentanyl (Sublimaze) Confirm Administered Dose 250 mcg .ROUTE .STK-MED ONE Stop: 12/20/18 07:08 Fentanyl (Sublimaze) 100 mcg EPIDUR ONETIME PRN PRN Reason: Pain Stop: 12/20/18 14:00 Glycopyrrolate () Confirm Administered Dose 1 mg .ROUTE .STK-MED ONE Stop: 12/20/18 10:31 Hydromorphone HCl (Dilaudid) 0.5 mg IVPUSH Q15M PRN PRN Reason: severe pain Lactated Ringer's (Ringers, Lactated) 1,000 mls @ 125 mls/hr IV ASDIRECTED [facility] Stop: 12/20/18 23:00 Last Admin: 12/20/18 12:01 Dose: 125 mls/hr Cefazolin Sodium/Dextrose 2 gm (/ Premix) 50 mls @ 100 mls/hr IV Q8H [facility] Stop: 12/20/18 22:59 Last Admin: 12/20/18 20:10 Dose: Not Given Lidocaine HCl (Xylocaine-Mpf 1%) Confirm Administered Dose 4 mls @ as directed .ROUTE .STK-MED ONE Stop: 12/20/18 07:07 Lactated Ringer's (Ringers, Lactated) Confirm Administered Dose 1,000 mls @ as directed .ROUTE .STK-MED ONE Stop: 12/20/18 07:07 Lidocaine HCl (Xylocaine-Mpf 1%) Confirm Administered Dose 2 mls @ as directed .ROUTE .STK-MED ONE Stop: 12/20/18 07:27 Cefazolin Sodium/Dextrose 2 gm (/ Premix) 50 mls @ 100 mls/hr IV Q8H [facility] Stop: 12/21/18 07:29 Last Admin: 12/21/18 06:36 Dose: 100 mls/hr Cefazolin Sodium/Dextrose 1 gm (/ Premix) 50 mls @ 100 mls/hr IV Q8H [facility] Stop: 12/21/18 07:29 Last Admin: 12/21/18 06:36 Dose: 100 mls/hr Iodine (Iodine 2% Mild Tincture) Confirm Administered Dose 30 ml .ROUTE .STK- MED ONE Stop: 12/20/18 07:26 Last Admin: 12/20/18 10:09 Dose: 18 ml Ketorolac Tromethamine (Toradol) Confirm Administered Dose 30 mg .ROUTE .[facility]- MED ONE Stop: 12/20/18 07:08 Lidocaine/Sodium Bicarbonate (Buffered Lidocaine 1% In Ns 8.4%) 0.25 ml IDERM ONETIME PRN PRN Reason: Prior to IV Start Stop: 12/20/18 18:00 Last Admin: 12/20/18 07:14 Dose: 0.25 ml Midazolam HCl (Versed 1 Mg/Ml) Confirm Administered Dose 2 mg .ROUTE .ST-MED ONE Stop: 12/20/18 07:08 Neostigmine Methylsulfate (Neostigmine) Confirm Administered Dose 5 mg .ROUTE .[facility]-MED ONE Stop: 12/20/18 10:31 Ondansetron HCl (Zofran) Confirm Administered Dose 4 mg .ROUTE .[facility]-MED ONE Stop: 12/20/18 07:07 Ondansetron HCl (Zofran) 4 mg IVPUSH ONETIME PRN PRN Reason: Nausea/Vomiting Stop: 12/20/18 14:00 Oxycodone HCl (Oxycontin) 10 mg PO ONETIME [facility] Stop: 12/20/18 12:30 Last Admin: 12/20/18 07:08 Dose: 10 mg Phenylephrine HCl (Phenylephrine In Ns 100 Mcg/Ml) Confirm Administered Dose 1 mg .ROUTE .ST-MED ONE Stop: 12/20/18 09:28 Pregabalin (Lyrica) 50 mg PO ONETIME [facility] Stop: 12/20/18 12:30 Last Admin: 12/20/18 07:08 Dose: 50 mg Propofol (Diprivan 20 Ml) Confirm Administered Dose 400 mg .ROUTE .ST-MED ONE Stop: 12/20/18 07:08 Propofol (Diprivan 20 Ml) Confirm Administered Dose 200 mg .ROUTE .[facility]-MED ONE Stop: 12/20/18 09:09 Rocuronium [place] (Zemuron) Confirm Administered Dose 50 mg .ROUTE .ST-MED ONE Stop: 12/20/18 07:07 Ropivacaine (Naropin 0.5%) Confirm Administered Dose 30 ml .ROUTE .ST-MED ONE Stop: 12/20/18 07:20 Sodium Chloride (Saline Flush) 10 ml FLUSH ASDIRECTED PRN PRN Reason: Keep Vein Open Stop: 12/20/18 18:00 Succinylcholine Chloride (Succinylcholine In Ns Pf) Confirm Administered Dose 100 mg .ROUTE .STK-MED ONE Stop: 12/20/18 07:07 Tranexamic Acid (Cyklokapron) Confirm Administered Dose 1,000 mg .ROUTE .STK- MED ONE Stop: 12/20/18 07:25 Last Admin: 12/20/18 10:15 Dose: 1,000 mg Valacyclovir HCl (Valtrex) mg PO BID PRN PRN Reason: cold sores Vancomycin HCl (Vancomycin) Confirm Administered Dose 1 gm .ROUTE .STK-MED ONE Stop: 12/20/18 07:25 Last Admin: 12/20/18 10:15 Dose: 1 gm
[2018-12-21] MEDS: Docusate Sodium 100 MG Cap PO SCH (08:59)
[2018-12-21] MEDS ORDERED: Aspirin 325 MG Tab.EC PO SCH (09:00)
[2018-12-21] MEDS ORDERED: Cholecalciferol (Vitamin D3) 5,000 UNIT Tab PO SCH (09:00)
--- NOTE | 2018-12-21 12:51 | PCM48HPAN ---
Post Anesthesia Note - EVALUATION WITHIN 48HRS OF ANESTHETIC Vital Signs in Normal Range: Yes Patient Participated in Evaluation: Yes Respiratory Function Stable: Yes Airway Patent: Yes Cardiovascular Function Stable: Yes Hydration Status Stable: Yes Pain Control Satisfactory: Yes Nausea and Vomiting Control Satisfactory: Yes Mental Status Recovered: Yes Vital Signs: Last Vital Signs Temp 36.1 C 12/21/18 06:26 Pulse 54 L 12/21/18 06:26 Resp 16 12/21/18 06:26 BP 132/81 12/21/18 06:26 Pulse Ox 92 L 12/21/18 06:26 - COMMENTS/OBSERVATIONS Free Text/Narrative:: no anesthesia complications noted
[2018-12-21 13:08] VITALS: BP 120/63; PULSE 69
--- NOTE | 2018-12-24 06:39 | CR ---
Left shoulder: Single AP view of the left shoulder was obtained utilizing portable technique. Reverse left shoulder prosthesis is seen. Components are aligned. Underlying bony structures are intact. Impression: 1. Recently placed left shoulder prosthesis. No acute bony abnormality is seen. Diagnostic code #2 I agree with preliminary report from [facility], finalized on 12/20/18, 12:23 PM Central Time
--- NOTE | 2018-12-24 06:39 | CR ---
Left shoulder: Two fluoroscopic spot views were obtained of the left shoulder utilizing C-arm device. Comparison: Previous MRI left shoulder exam of 05/16/17. Reverse left shoulder prosthesis is noted. Components appear aligned. Fluoroscopy time is given as 3.1 seconds. Impression: 1. Procedural study. Diagnostic code #2 I agree with preliminary report from [facility], finalized on 12/20/18, 12:19 PM Central Time
--- NOTE | 2018-12-25 09:58 | PCM.OPNOTE ---
- General Post-Op/Procedure Note Date of Surgery/Procedure: 12/20/18 Operative Procedure(s): left reverse total shoulder arthroplasty Pre Op Diagnosis: left shoulder rotator cuff tear arthropathy Post-Op Diagnosis: Same Anesthesia Technique: General ET Tube, Regional Block Primary Surgeon: Jose Maria Horton Anesthesia Provider: Damaris Morrow Code And Test Clerk: Celia Campo Code And Test Clerk: Kim Enriquez EBL in mLs: 350 Complications: None Condition: Good Free Text/Narrative:: arthrex size 7 stem 36+4 small modular glenoid baseplate
--- NOTE | 2018-12-25 11:41 | OR ---
DATE OF OPERATION: 12/20/2018 SURGEON: Jose Maria Horton MD OPERATION PERFORMED: Left reverse total shoulder arthroplasty. PREOPERATIVE DIAGNOSIS: Left shoulder rotator cuff tear arthropathy. POSTOPERATIVE DIAGNOSIS: Left shoulder rotator cuff tear arthropathy. ANESTHESIA: General endotracheal intubation with regional interscalene block. ANESTHESIA PROVIDER: Ciara Bennett. ASSISTANTS: Celia Campo PA-C, and Kim Enriquez LPN. ESTIMATED BLOOD LOSS: 350 mL. COMPLICATIONS: None. CONDITION: Stable. IMPLANTS: 1. Arthrex size 7 reverse humeral stem 135 degrees. 2. Arthrex size 3 mm polyethylene liner. 3. Arthrex 36, +4 glenosphere. 4. Arthrex small modular glenoid baseplate. DESCRIPTION OF PROCEDURE: Patient was identified in the preop holding area. Proper site was marked and identified by the surgeon. The patient was taken back to the operating theater where after adequate anesthesia, the patient was placed supine on radiolucent table. The right upper extremity was then sterilely prepped and draped in the usual sterile fashion. OR time-out was performed. The patient received 2 g of IV Ancef. The patient was placed in a reverse Trendelenburg position. A standard deltopectoral incision was made. This was taken down to the cephalic vein. The cephalic vein was identified and it was retracted laterally. The deltopectoral interval was then mobilized and a Coude retractor was placed on the subdeltoid space. The clavipectoral fascia was then incised and conjoined tendon was retracted medially. 0 Vicryl stick tie was then used for ligation of the anterior humeral circumflex vessels. The biceps tendon was identified in the groove and #2 FiberWire were used for a biceps tenodesis just above the pec tendon. The biceps tendon was then resected and transected all the way back to the level of the glenoid. Patient was noted to have high-grade partial-thickness tear of the rotator cuff tendons of the supra and infraspinatus. At this time, a subscapularis peel down was then done and the humeral head was dislocated. Neck cut was then completed in roughly 30 degrees of retroversion. Attention was then turned to the glenoid. Posterior and anterior retractors were placed. Circumferential removal of the labrum as well as any synovium and capsule was then done at this time. Once it had adequate exposure, the guide pin was placed in a center-center position and the central reamer was then used. After this was completed, a peripheral reamer was then utilized for the baseplate. The central tap was then used and the Arthrex modular glenoid small baseplate was then placed. A central compression locking screw and peg were then placed, and then superior and inferior locking screws were placed in a divergent fashion. It was found to have adequate contact with bony surface. At this time, the 36+ 4 glenosphere was placed and the central locking screw was placed and tightened. Attention was turned to the humerus. Starting with a 5 broach, I was able to broach up to a size 7 which was found to be rotationally and vertically stable. The central reaming guide was then placed and the proximal reamer was used on the humerus. The trial implants were then placed. It was found to have adequate mandaeism of motion and stability with a +3 liner. At this time, a size 7 Arthrex stem was opened on the back table and 135 degree construct for reverse total shoulder arthroplasty was constructed with a +3 liner. This with a monoblock then construction was impacted into place in the humerus. C-arm fluoroscopy showed all implants to be in adequate position with no signs of instability or loosening. Topical tranexamic acid as well as vancomycin powder was placed. 2-0 Vicryl was used subcutaneously and Prineo was used for the skin. The patient was placed in a sterile soft dressing and a pillow sling and sent to PACU in stable condition. DONALD /[id number]
== END 2018-12-21 12:55 | disposition home or self-care (01) | DRG 322 ==
LOC: JD.SDS 06:49 → JD.MS 12:15 → JD.SDS 13:46 → JD.MS 13:53
PROVIDERS: ADMIT Orthopaedic Surgery; ATTEND Orthopaedic Surgery
PROC: 0RRK00Z Replacement of Left Shoulder Joint with Reverse Ball and Socket Synthetic Substitute, Open Approach (ICD-10-PCS; principal; 2018-12-20)
PROC: 0LS40ZZ Reposition Left Upper Arm Tendon, Open Approach (ICD-10-PCS; 2018-12-20)
DX: M19.012 Primary osteoarthritis, left shoulder (principal); E03.9 Hypothyroidism, unspecified; Z96.653 Presence of artificial knee joint, bilateral; E78.00 Pure hypercholesterolemia, unspecified; G43.909 Migraine, unspecified, not intractable, without status migrainosus; E66.9 Obesity, unspecified; Z68.41 Body mass index [BMI] 40.0-44.9, adult; Z79.899 Other long term (current) drug therapy; Z98.1 Arthrodesis status; Z87.891 Personal history of nicotine dependence; Z88.0 Allergy status to penicillin; Z88.2 Allergy status to sulfonamides
CPT/HCPCS: 01638; 36415; 64415; 73020-26-LT; 73020-LT; 76000; 76000-26; 80053; 85027; 87641; 97110-GP; 97161-GP; 97165-GO; 97535-GO; A9270-GY; C1713; C1776; J0171; J0330; J0690; J1100; J1885; J2001; J2250; J2370; J2405; J2704; J2710; J2795; J3010; J3370; J3490; J7120

== ENCOUNTER 2019-11-10 19:20 | Emergency (ER) | payer BC ==
[2019-11-10 19:27] VITALS: BP 128/68; PULSE 70
--- NOTE | 2019-11-10 19:45 | EDM.PDOC ---
ED HPI GENERAL MEDICAL PROBLEM - General Chief Complaint: Lower Extremity Injury/Pain Stated Complaint: LT KNEE INJURY Time Seen by Provider: 11/10/19 19:24 Source of Information: Reports: Patient, Family () History Limitations: Reports: No Limitations - History of Present Illness INITIAL COMMENTS - FREE TEXT/NARRATIVE: Mrs. Shukla is a very pleasant 53-year-old woman with a past medical history of osteoarthritis, status post bilateral total knee arthroplasties, who states that she and her went out on their boat earlier today. She states that she tripped and fell on the boat dock, landing on her right knee, then, later, she slipped while getting out of their boat, this time falling onto her left knee. She now presents the ED with left knee pain, particularly when she bends her knee. She denies any other injuries, including injury to her right knee. Here in the ED, the patient is found to be hemodynamically stable, afebrile, saturating 95% on room air. Other than today's left knee injury, the patient denies recent fever, chills, sore throat, ear pain, nasal or sinus congestion, cough, dyspnea, chest pain, palpitations, nausea, vomiting, constipation, diarrhea, abdominal pain, urinary symptoms, recent weight gain or weight loss, recent bloody bowel movements or black bowel movements, recent joint aches, headaches, or rashes. The patient's PCP is Dr. Alistair Avelar. Her Orthopedic Surgeon is Dr. Jose Maria Horton. Her Poultry Field Service Technician is Dr. Blaine Dennis. Left Knee Pain Score (Numeric/FACES): 3 - Related Data Allergies Allergy/AdvReac Type Severity Reaction Status Date / Time Iodinated Contrast Media Allergy Anaphylactic Verified 11/10/19 19:27 [Iodinated Contrast Media - Shock IV Dye] Penicillins Allergy Rash Verified 11/10/19 19:27 naproxen sodium [From Aleve] AdvReac Stomach Verified 11/10/19 19:27 Ache Sulfa (Sulfonamide AdvReac Nausea Verified 11/10/19 19:27 Antibiotics) Home Meds: Home Meds Levothyroxine 200 mcg PO DAILY 07/24/14 [History] valACYclovir HCl [valACYclovir] 1,000 tab PO BID PRN 08/01/14 [History] Cholecalciferol (Vitamin D3) [Vitamin D3] 5,000 unit PO DAILY 12/19/18 [History] clindamycin HCL [Cleocin] 150 mg PO ASDIRECTED PRN 12/19/18 [History] Acetaminophen/oxyCODONE [Percocet 325-5 MG] 1 - 2 tab PO Q4H PRN #60 tablet 12/21/18 [Rx] Aspirin [Ecotrin EC] 325 mg PO BID #84 tab.ec 12/21/18 [Rx] Cyclobenzaprine [Flexeril] 10 mg PO BID PRN #40 tablet 12/21/18 [Rx] Docusate Sodium [Colace] 100 mg PO BID cap 12/21/18 [Rx] Famotidine [Pepcid] 20 mg PO Q12H tablet 12/21/18 [Rx] Magnesium Hydroxide [Milk of Magnesia] 30 ml PO BID PRN cup 12/21/18 [Rx] Sennosides [Senna] 8.6 mg PO BID PRN tablet 12/21/18 [Rx] bisacodyL [Dulcolax] 5 mg PO DAILY PRN tablet 12/21/18 [Rx] Past Medical History AD CLERK History: Reports: Endometriosis, Spontaneous Musculoskeletal History: Reports: Fracture (right tibial plateau, C4), Osteoarthritis Endocrine/Metabolic History: Reports: Hypothyroidism, Obesity/BMI 30+ - Past Surgical History HEENT Surgical History: Reports: LASIK GI Surgical History: Reports: Colonoscopy, EGD Female Surgical History: Reports: Hysterectomy (partial) Neurological Surgical History: Reports: C-Spine (C5-C7 ACDF) Musculoskeletal Surgical History: Reports: Knee Replacement (bilateral), Shoulder Surgery (left, complete reverse arthroplasty), Other (See Below) (Bone graft for right knee fracture repair) Dermatological Surgical History: Reports: Other (See Below) (Right shoulder lipoma excision) Social & Family History - Family History Family Medical History: Noncontributory - Tobacco Use Smoking Status *Q: Former Smoker Years of Tobacco use: 31 Packs/Tins Daily: 0.5 Month/Year Tobacco Last Used: Quit 2018 - Caffeine Use Caffeine Use: Reports: None - Alcohol Use Alcohol Use History: Yes Alcohol Use Frequency: Socially - Recreational Drug Use Recreational Drug Use: No - Living Situation & Occupation Living situation: Reports: , with Spouse, with Family (2 kids) Occupation: Employed (RN at [employer]) Review of Systems - Review of Systems Review Of Systems: Comprehensive ROS is negative, except as noted in HPI. ED EXAM, GENERAL - Physical Exam Exam: See Below Exam Limited By: No Limitations General Appearance: Alert, WD/WN, No Apparent Distress Extremities: Other (There are several scratches/scrapes to the anterior left knee, along with several small ecchymosis and a larger ecchymosis over the left tibial tuberosity. There is tenderness to palpation in this area, but no tenderness to the leg or distal femur, or to the left patella. The patient comp lains of pain to the left knee with active flexion around 90 degrees, however, I am able to passively flex the knee without significant discomfort, and the patient has excellent active extension of the knee without weakness or induction of pain. Compression of the mid and proximal tibia does not induce pain in the knee area. Neurovascular status of the left lower extremity is intact.) Course - Vital Signs Last Recorded V/S: Last Vital Signs Temp 36.4 C 11/10/19 19:24 Pulse 70 11/10/19 19:24 Resp 16 11/10/19 19:24 BP 128/68 11/10/19 19:24 Pulse Ox 95 11/10/19 19:24 - Orders/Labs/Meds Orders: Active Orders 24 hr Category Date Time Status Knee Min 4V Lt [CR] Stat Exams 11/10/19 19:40 Taken - Re-Assessments/Exams Free Text/Narrative Re-Assessment/Exam: 11/10/19 19:41 As above, the patient fell twice today, the first time onto her right knee, the second time onto her left knee. She is only complaining of left knee pain, and on examination, she has some scrapes and a bruise to the anterior knee over the tibial tuberosity. She complains of pain to the knee when it is bent, but that appears to be only if she actively flexes the knee; I am able to passively flex the knee without much discomfort, and the patient has excellent extension of the knee without any pain or weakness whatsoever, therefore I am not concerned about an extensor tendon injury. Her examination is not consistent with a bony injury around the arthroplasty, however, I have ordered x-rays of the knee just to be sure. The patient declined an offer for pain medication. 11/10/19 20:49 4-view radiographs of the left knee reviewed. There is total knee arthroplasty hardware that appears to be in good position, with no fractures identified. Formal read per the Radiologist pending. 11/10/19 20:53 X-ray results discussed with the patient and her . As above, there does not appear to be a significant injury to the left knee. I am recommending ice packs and ibuprofen. I will write a note for the patient to be off work for the next few days. Departure - Departure Time of Disposition: 20:53 Disposition: Home, Self-Care 01 Condition: Good Clinical Impression: Contusion of left knee - Discharge Information *PRESCRIPTION DRUG MONITORING PROGRAM REVIEWED*: Not Applicable *COPY OF PRESCRIPTION DRUG MONITORING REPORT IN PATIENT [place]: Not Applicable Referrals: Jose Maria Horton MD [Primary Care Provider] - Alistair Avelar MD [Physician] - Blaine Dennis MD [Ordering Only Provider] - Forms: ED Department Discharge, ED Return to Work/School Form Additional Instructions: You were seen in the emergency room after falling onto your left knee while getting out of your boat. Work-up in the ER included x-rays of your left knee, which shows your knee arthroplasty be to be in good position, with no suggestion of a bone fracture. Based on your history, physical exam, and ER x-rays, you appear to have contused (bruised) your left knee. We recommend that you apply an ice pack to the front of your left knee as much as possible over the next 2 days, to help minimize swelling. We recommend that you take [id number] ibuprofen, 3 tablets (600 mg) up to every 8 hours, with food, as needed for discomfort. A note to be off work until 11/18/2019, has been provided. If you do not feel that you are ready to return to work by then, please follow-up with your Orthopedic Surgeon, Dr. Jose Maria Horton, for further evaluation. If any other problems, please do not hesitate to return to the ER. Sepsis Event Note (ED) - Evaluation Sepsis Screening Result: No Definite Risk - Focused Exam Vital Signs: Vital Signs Temp Pulse Resp BP Pulse Ox 11/10/19 19:24 36.4 C 70 16 128/68 95 - My Orders Last 24 Hours: My Active Orders 11/10/19 19:40 Knee Min 4V Lt [CR] Stat - Assessment/Plan Last 24 Hours: My Active Orders 11/10/19 19:40 Knee Min 4V Lt [CR] Stat
--- NOTE | 2019-11-11 08:08 | CR ---
Left knee: 4 views of the left knee were obtained. Comparison: Prior left knee exam of . Knee prosthesis is noted. Components are aligned. Underlying bony structures are intact. No acute fracture or other bony abnormality is appreciated. Impression: 1. Left knee prosthesis. 2. Nothing acute seen on left knee study. Diagnostic code #2 This report was dictated in MDT
== END 2019-11-10 21:03 | disposition home or self-care (01) ==
LOC: JD.ED 19:20
DX: S80.02XA Contusion of left knee, initial encounter (principal); M19.90 Unspecified osteoarthritis, unspecified site; E03.9 Hypothyroidism, unspecified; E66.9 Obesity, unspecified; Z91.041 Radiographic dye allergy status; Z88.0 Allergy status to penicillin; Z88.2 Allergy status to sulfonamides; Z88.8 Allergy status to other drugs, medicaments and biological substances; Z79.82 Long term (current) use of aspirin; Z79.899 Other long term (current) drug therapy; Z87.891 Personal history of nicotine dependence; W01.0XXA Fall on same level from slipping, tripping and stumbling without subsequent striking against object, initial encounter
CPT/HCPCS: 73564-26-LT; 73564-LT; 99282; 99283-25

== ENCOUNTER 2021-01-18 19:16 | Emergency (ER) | payer BC ==
--- NOTE | 2021-01-18 20:00 | EDM.PDOC ---
<Reno Orantes - Last Filed: 01/18/21 20:46> ED HPI GENERAL MEDICAL PROBLEM - General Chief Complaint: Respiratory Problem Stated Complaint: FEVER/COUGH/LOW STATS Time Seen by Provider: 01/18/21 19:45 Source of Information: Reports: Patient History Limitations: Reports: No Limitations - History of Present Illness INITIAL COMMENTS - FREE TEXT/NARRATIVE: Patient 55-year-old female with history of obesity presenting with a chief complaint of COVID symptoms. Patient states she started having symptoms on January 08. Symptoms include fevers, body aches, fatigue, lethargy, diarrhea, cough, shortness of breath. Patient reports having oxygen levels in the 80s for the past 2 days. She comes in tonight because symptoms have worsened. Patient had not received the Covid vaccine. No prior treatment for Covid. Patient has been using [id number] medications with mild relief. Patient has several family members that are also sick with COVID-19. Headache Pain Score (Numeric/FACES): 7 - Related Data Allergies Allergy/AdvReac Type Severity Reaction Status Date / Time Iodinated Contrast Media Allergy Anaphylactic Verified 01/18/21 19:58 [Iodinated Contrast Media - Shock IV Dye] Penicillins Allergy Rash Verified 01/18/21 19:58 naproxen sodium [From Aleve] AdvReac Stomach Verified 01/18/21 19:58 Ache Sulfa (Sulfonamide AdvReac Nausea Verified 01/18/21 19:58 Antibiotics) Home Meds: Home Meds Levothyroxine 200 mcg PO DAILY 07/24/14 [History] valACYclovir HCl [valACYclovir] 1,000 tab PO BID PRN 08/01/14 [History] clindamycin HCL [Cleocin] 150 mg PO ASDIRECTED PRN 12/19/18 [History] Cyclobenzaprine [Flexeril] 10 mg PO BEDTIME PRN 01/19/21 [History] Ibuprofen 400 mg PO Q6H PRN 01/19/21 [History] Magnesium Oxide [Magnesium] 400 mg PO DAILY 01/19/21 [History] dexAMETHasone [Dexamethasone] 6 mg PO QAM 7 Days #11 tab 01/19/21 [Rx] Past Medical History Other HEENT History: myringitis Cardiovascular History: Reports: High Cholesterol Respiratory History: Reports: None Gastrointestinal History: Reports: None Genitourinary History: Reports: Other (See Below) Other Genitourinary History: diagnostic laparoscopy with lysis of adhesions METAL SPINNER History: Reports: Endometriosis, Spontaneous Musculoskeletal History: Reports: Fracture, Osteoarthritis Other Musculoskeletal History: right knee fracture, muscle spasm, back pain, rib fracture, lateral epicondylitis, left shoulder pain, right foot pain Neurological History: Reports: Migraines, Other (See Below) Other Neuro History: neck injury, head trauma, c3 cervical fracture Psychiatric History: Reports: None Endocrine/Metabolic History: Reports: Hypothyroidism, Obesity/BMI 30+ Hematologic History: Reports: None Immunologic History: Reports: None Oncologic (Cancer) History: Reports: None Dermatologic History: Reports: None - Infectious Disease History Infectious Disease History: Reports: Novel Coronavirus - Past Surgical History Head Surgeries/Procedures: Reports: None HEENT Surgical History: Reports: LASIK Cardiovascular Surgical History: Reports: None Respiratory Surgical History: Reports: None GI Surgical History: Reports: Colonoscopy, EGD Female Surgical History: Reports: Hysterectomy Endocrine Surgical History: Reports: None Neurological Surgical History: Reports: C-Spine Other Neurological Surgeries/Procedures: [id number] fusion Musculoskeletal Surgical History: Reports: Knee Replacement, Shoulder Surgery, Other (See Below) Other Musculoskeletal Surgeries/Procedures:: knee hardware removal, bilateral total knee replacements, neck fusion Oncologic Surgical History: Reports: None Dermatological Surgical History: Reports: Other (See Below) Social & Family History - Family History Family Medical History: No Pertinent Family History - Caffeine Use Caffeine Use: Reports: None - Living Situation & Occupation Living situation: Reports: , with Spouse, with Family (2 kids) Occupation: Employed (RN at [employer]) ED ROS GENERAL - Review of Systems Review Of Systems: See Below Free Text/Narrative/Comment: In addition to that documented in the HPI above, the additional ROS was obtained: Constitutional: Positive for fevers or chills Eyes: Denies vision changes ENMT: Denies sore throat CV: Denies chest pain Resp: Per HPI GI: Denies vomiting or diarrhea : Denies painful urination MSK: Denies recent trauma Skin: Denies new rashes Neuro: Denies new numbness or tingling or weakness Endocrine: Denies unexpected weight loss Heme: Denies bleeding disorders ED EXAM, GENERAL - Physical Exam Exam: See Below Free Text/Narrative:: I have reviewed the triage vital signs. Oxygen levels on room air 75%, indicating inadequate oxygenation. Patient requires 4 L to maintain O2 saturation between 90 to 95%. Const: Well nourished, well developed, appears stated age Eyes: Pupils Equal and reactive to light bilaterally, no conjunctival injection HENT: No signs of trauma or swelling, Neck supple without meningismus CV: Regular Rate Rhythm, Warm, well-perfused extremities RESP: Unlabored respiratory effort GI: soft, non-tender, non-distended, no masses MSK: No gross deformities appreciated Skin: Warm, dry. No rashes Neuro: Alert, gel coat sprayer II-XII grossly intact. Sensation and motor function of extremities grossly intact. Psych: Appropriate mood and affect. Departure - Departure Disposition: Home, Self-Care 01 Clinical Impression: COVID-19 - Discharge Information Prescriptions: dexAMETHasone [Dexamethasone] 6 mg PO QAM 7 Days #11 tab Instructions: COVID-19 Frequently Asked Questions, Shortness of Breath, Adult, [id number], COVID-19, 10 Things You Can Do to Manage Your COVID-19 Symptoms at Home - [facility] (10/23/2020), Sepsis, Self Care, Adult Referrals: Alistair Avelar MD [Primary Care Provider] - Forms: ED Department Discharge Additional Instructions: You were seen in the emergency room for low oxygen level and worsening symptoms concerning for COVID-19. Work-up in the ER included several blood tests, a swab for the SARS-CoV-2 virus, and a chest x-ray. Your swab for the SARS-CoV-2 virus returned positive, and your chest x-ray shows findings consistent with COVID pneumonia. You were started on the steroid dexamethasone, and a prescription for dexamethasone has been sent to the [facility], located at [address] [place] [address]. Take 1.5 tablets (6 mg) of dexamethasone every morning, starting tomorrow morning, 01/20/2021, as prescribed. Stay adequately hydrated. You may take [id number] ibuprofen as needed for body aches. We advise against taking any gmpo-laz-bsanida cough or cold remedies, as they have been shown to be of no benefit, but do have side effects, such as an upset stomach. An order for home oxygen has been submitted. You are to use 3L/min per nasal cannula continuously. We recommend that you check your oxygen saturation with a home pulse oximeter several times a day. You may increase your oxygen up to 6 L/min per nasal cannula, as needed to maintain an oxygen saturation of 90 to 92%. If you require more than 6 L to maintain this oxygen saturation, please return to the ER for reevaluation. Sepsis Event Note (ED) - Evaluation Sepsis Screening Result: No Definite Risk <Rolando Saldana - Last Filed: 01/19/21 13:48> Course - Vital Signs Last Recorded V/S: Last Vital Signs Temp 36.9 C 01/19/21 07:20 Pulse 70 01/19/21 07:20 Resp 20 01/19/21 07:20 BP 124/76 01/19/21 07:20 Pulse Ox 90 L 01/19/21 07:20 - Orders/Labs/Meds Orders: Active Orders 24 hr Category Date Time Status Patient Status [ADT] Stat ADT 01/19/21 11:59 Active Adult Diet [DIET] Diet 01/19/21 Breakfast Active HEPATIC FUNCTION PANEL,HFP [CHEM] DAILY Lab 01/20/21 23:30 Ordered HEPATIC FUNCTION PANEL,HFP [CHEM] DAILY Lab 01/21/21 23:30 Ordered HEPATIC FUNCTION PANEL,HFP [CHEM] DAILY Lab 01/22/21 23:30 Ordered Remdesivir 100 mg Med 01/19/21 21:30 Active Sodium Chloride 0.9% [Normal Saline] 100 ml IV Q24H dexAMETHasone [Decadron] Med 01/19/21 21:00 Active 6 mg IV Q24H Medication Orders Dexamethasone (Dexamethasone 10 Mg/Ml Sdv) 6 mg IV Q24H DONATO Remdesivir 100 mg/ Sodium (Chloride) 100 mls @ 100 mls/hr IV Q24H DONATO Stop: 01/22/21 22:29 Labs: Laboratory Tests 01/18/21 01/18/21 01/18/21 Range/Units 20:31 20:32 20:32 WBC 2.95 L (3.98-10.04) K/mm3 RBC 3.86 L (3.98-5.22) M/mm3 Hgb 11.6 (11.2-15.7) gm/dl Hct 37.0 (34.1-44.9) % MCV 95.9 H (79.4-94.8) fl MCH 30.1 (25.6-32.2) pg MCHC 31.4 L (32.2-35.5) g/dl RDW Std Deviation 49.7 H (36.4-46.3) fL Plt Count 110 L (182-369) K/mm3 MPV 11.2 (9.4-12.3) fl Neut % (Auto) 52.9 (34.0-71.1) % Lymph % (Auto) 43.1 (19.3-51.7) % [facility] % (Auto) 3.7 L (4.7-12.5) % Eos % (Auto) 0 L (0.7-5.8) Baso % (Auto) 0.3 (0.1-1.2) % Neut # (Auto) 1.56 (1.56-6.13) K/mm3 Lymph # (Auto) 1.27 (1.18-3.74) K/mm3 [facility] # (Auto) 0.11 L (0.24-0.36) K/mm3 Eos # (Auto) 0.00 L (0.04-0.36) K/mm3 Baso # (Auto) 0.01 (0.01-0.08) K/mm3 D-Dimer, Quantitative (0.19-0.50) mg/L Sodium 137 (136-145) mEq/L Potassium 3.6 (3.5-5.1) mEq/L Chloride 100 (98-107) mEq/L Carbon Dioxide 31 (21-32) mEq/L Anion Gap 9.6 (5-15) BUN 12 (7-18) mg/dL Creatinine 1.0 (0.55-1.02) mg/dL Est Cr Clr Drug Dosing 64.87 mL/min Estimated GFR (MDRD) 57 (>60) mL/min BUN/Creatinine Ratio 12.0 L (14-18) Glucose 103 H (70-99) mg/dL Calcium 8.1 L (8.5-10.1) mg/dL Total Bilirubin 0.3 (0.2-1.0) mg/dL Direct Bilirubin (0.0-0.2) mg/dl Indirect Bilirubin (0.1-1.0) mg/dL AST 52 H (15-37) U/L ALT 42 (14-59) U/L Alkaline Phosphatase 97 (46-116) U/L C-Reactive Protein 11.1 H* (<1.0) mg/dL Total Protein 8.5 H (6.4-8.2) g/dl Albumin 3.1 L (3.4-5.0) g/dl Globulin 5.4 gm/dL Albumin/Globulin Ratio 0.6 L (1-2) SARS-CoV-2 RNA (RHEA) Positive H (NEGATIVE) 01/18/21 01/19/21 Range/Units 20:32 05:50 WBC (3.98-10.04) K/mm3 RBC (3.98-5.22) M/mm3 Hgb (11.2-15.7) gm/dl Hct (34.1-44.9) % MCV (79.4-94.8) fl MCH (25.6-32.2) pg MCHC (32.2-35.5) g/dl RDW Std Deviation (36.4-46.3) fL Plt Count (182-369) K/mm3 MPV (9.4-12.3) fl Neut % (Auto) (34.0-71.1) % Lymph % (Auto) (19.3-51.7) % [facility] % (Auto) (4.7-12.5) % Eos % (Auto) (0.7-5.8) Baso % (Auto) (0.1-1.2) % Neut # (Auto) (1.56-6.13) K/mm3 Lymph # (Auto) (1.18-3.74) K/mm3 [facility] # (Auto) (0.24-0.36) K/mm3 Eos # (Auto) (0.04-0.36) K/mm3 Baso # (Auto) (0.01-0.08) K/mm3 D-Dimer, Quantitative 0.81 H (0.19-0.50) mg/L Sodium (136-145) mEq/L Potassium (3.5-5.1) mEq/L Chloride (98-107) mEq/L Carbon Dioxide (21-32) mEq/L Anion Gap (5-15) BUN (7-18) mg/dL Creatinine (0.55-1.02) mg/dL Est Cr Clr Drug Dosing mL/min Estimated GFR (MDRD) (>60) mL/min BUN/Creatinine Ratio (14-18) Glucose (70-99) mg/dL Calcium (8.5-10.1) mg/dL Total Bilirubin 0.2 (0.2-1.0) mg/dL Direct Bilirubin 0.10 (0.0-0.2) mg/dl Indirect Bilirubin 0.1 (0.1-1.0) mg/dL AST 54 H (15-37) U/L ALT 45 (14-59) U/L Alkaline Phosphatase 100 (46-116) U/L C-Reactive Protein (<1.0) mg/dL Total Protein 8.3 H (6.4-8.2) g/dl Albumin 2.9 L (3.4-5.0) g/dl Globulin 5.4 gm/dL Albumin/Globulin Ratio 0.5 L (1-2) SARS-CoV-2 RNA (RHEA) (NEGATIVE) Meds: Medications Generic Name Dose Route Start Last Admin Trade Name Freq PRN Reason Stop Dose Admin Dexamethasone 6 mg 01/19/21 21:00 Dexamethasone 10 Mg/Ml Sdv IV Q24H DONATO Remdesivir 100 mg/ Sodium 100 mls @ 100 mls/hr 01/19/21 21:30 Chloride IV 01/22/21 22:29 Q24H DONATO Discontinued Medications Generic Name Dose Route Start Last Admin Trade Name Freq PRN Reason Stop Dose Admin Dexamethasone 6 mg 01/18/21 20:59 01/18/21 21:36 Dexamethasone 4 Mg/Ml 5 Ml Mdv IV 01/18/21 21:00 6 mg ONETIME ONE Administration Dexamethasone 6 mg 01/19/21 18:00 Dexamethasone 4 Mg/Ml 5 Ml Mdv IV 01/19/21 18:01 DAILY ONE Remdesivir 200 mg/ Sodium 250 mls @ 250 mls/hr 01/18/21 20:58 01/18/21 21:36 Chloride IV 01/18/21 20:59 250 mls/hr ONETIME ONE Administration Ketorolac Tromethamine 15 mg 01/19/21 00:03 01/19/21 00:11 Ketorolac 15 Mg/Ml Sdv IVPUSH 01/19/21 00:04 15 mg ONETIME ONE Administration Ketorolac Tromethamine 30 mg 01/19/21 10:42 01/19/21 10:50 Ketorolac 30 Mg/Ml Sdv IVPUSH 01/19/21 10:43 30 mg ONETIME STA Administration - Re-Assessments/Exams Free Text/Narrative Re-Assessment/Exam: 01/19/21 13:19 Notified that the patient was evaluated by Dr. Toussaint, and that the plan is to discharge the patient home with a prescription for dexamethasone and home oxygen. Departure - Departure Time of Disposition: 13:19 Condition: Good - Discharge Information *PRESCRIPTION DRUG MONITORING PROGRAM REVIEWED*: Not Applicable *COPY OF PRESCRIPTION DRUG MONITORING REPORT IN PATIENT [place]: Not Applicable Sepsis Event Note (ED) - Focused Exam Vital Signs: Vital Signs Temp Pulse Resp BP Pulse Ox 01/19/21 07:20 36.9 C 70 20 124/76 90 L
[2021-01-18] MEDS ORDERED: REMDESIVIR 200 MG in Sodium Chloride 0.9% 250 ML IV ONE (20:58)
[2021-01-18] MEDS ORDERED: Dexamethasone 4 MG/ML 5 ML MDV IV ONE (20:59)
[2021-01-19] MEDS ORDERED: Ketorolac 15 MG/ML SDV IVPUSH ONE (00:03)
--- NOTE | 2021-01-19 07:29 | CR ---
Chest: Frontal view of the chest was obtained. Comparison: Prior chest x-ray of 08/28/11. Patchy areas of increased density are seen on both sides of the chest. Heart size is slightly enlarged. Upper mediastinum is within normal limits. Left shoulder prosthesis is noted. Impression: 1. Patchy areas of increased density on both sides of the chest most likely representing moderate to severe COVID pneumonia. 2. Mild stable cardiomegaly and prior left shoulder prosthesis. Diagnostic code #3
[2021-01-19] MEDS ORDERED: Ketorolac 30 MG/ML SDV IVPUSH STA (10:42)
[2021-01-19 15:06] VITALS: BP 129/71; PULSE 68
[2021-01-19] MEDS ORDERED: Dexamethasone 4 MG/ML 5 ML MDV IV ONE (18:00)
[2021-01-19] MEDS ORDERED: Dexamethasone 10 MG/ML SDV IV SCH (21:00)
[2021-01-19] MEDS ORDERED: REMDESIVIR 100 MG in Sodium Chloride 0.9% 100 ML IV SCH (21:30)
== END 2021-01-19 15:00 | disposition home or self-care (01) ==
LOC: JD.ED 19:16 → JD.MS 01-19 11:59 → UNDOADMIN 01-19 11:59 → JD.ED 01-19 15:00
DX: U07.1 COVID-19 (principal); E03.9 Hypothyroidism, unspecified; E66.9 Obesity, unspecified; Z68.41 Body mass index [BMI] 40.0-44.9, adult; Z91.041 Radiographic dye allergy status; Z88.0 Allergy status to penicillin; Z88.6 Allergy status to analgesic agent; Z88.2 Allergy status to sulfonamides; Z79.899 Other long term (current) drug therapy
CPT/HCPCS: 36415; 71045; 80053; 80076; 85025; 85379; 86140; 87635; 96374; 96375; 96376; 99284; J1100; J1885; J7050; U0002

== ENCOUNTER 2021-01-23 13:09 | Inpatient (IN) | payer BC ==
--- NOTE | 2021-01-23 13:20 | EDM.PDOC ---
ED HPI GENERAL MEDICAL PROBLEM - General Chief Complaint: Respiratory Problem Stated Complaint: COVID +/SOB Time Seen by Provider: 01/23/21 13:20 - History of Present Illness INITIAL COMMENTS - FREE TEXT/NARRATIVE: 55-year-old female presents to the emergency room with worsening O2 saturation. Patient was diagnosed with Covid earlier this month her symptoms started on January 08. She has not had the vaccine. She was seen here on the of this month declined monoclonal antibody therapy. The patient was sent home on oxygen supplementation and dexamethasone. The patient's been taking her dexamethasone she took 6 mg of oral dexamethasone this morning. But she cannot keep her oxygen saturation up. Upon arrival here her O2 saturation are in the 70s with a nasal cannula she has poor color. Patient suffers from obesity is treated for hypothyroidism and has reported hyperlipidemia Generalized Pain Score (Numeric/FACES): 6 - Related Data Allergies Allergy/AdvReac Type Severity Reaction Status Date / Time Iodinated Contrast Media Allergy Severe Anaphylactic Verified 01/23/21 13:23 [Iodinated Contrast Media - Shock IV Dye] Penicillins Allergy Intermediate Rash Verified 01/25/21 10:33 naproxen sodium [From Aleve] AdvReac Mild Stomach Verified 01/25/21 10:33 Ache Sulfa (Sulfonamide AdvReac Mild Nausea Verified 01/25/21 10:33 Antibiotics) Home Meds: Home Meds Levothyroxine 200 mcg PO DAILY 07/24/14 [History] valACYclovir HCl [valACYclovir] 1,000 tab PO BID PRN 08/01/14 [History] clindamycin HCL [Cleocin] 150 mg PO ASDIRECTED PRN 12/19/18 [History] Cyclobenzaprine [Flexeril] 10 mg PO BEDTIME PRN 01/19/21 [History] Ibuprofen 400 mg PO Q6H PRN 01/19/21 [History] Magnesium Oxide [Magnesium] 400 mg PO DAILY 01/19/21 [History] dexAMETHasone [Dexamethasone] 6 mg PO QAM 7 Days #11 tab 01/19/21 [Rx] Past Medical History Other HEENT History: myringitis Cardiovascular History: Reports: High Cholesterol Respiratory History: Reports: None Gastrointestinal History: Reports: None Genitourinary History: Reports: Other (See Below) Other Genitourinary History: diagnostic laparoscopy with lysis of adhesions [employer] History: Reports: Endometriosis, Spontaneous Musculoskeletal History: Reports: Fracture, Osteoarthritis Other Musculoskeletal History: right knee fracture, muscle spasm, back pain, rib fracture, lateral epicondylitis, left shoulder pain, right foot pain Neurological History: Reports: Migraines, Other (See Below) Other Neuro History: neck injury, head trauma, c3 cervical fracture Psychiatric History: Reports: None Endocrine/Metabolic History: Reports: Hypothyroidism, Obesity/BMI 30+ Hematologic History: Reports: None Immunologic History: Reports: None Oncologic (Cancer) History: Reports: None Dermatologic History: Reports: None - Infectious Disease History Infectious Disease History: Reports: Novel Coronavirus - Past Surgical History Head Surgeries/Procedures: Reports: None HEENT Surgical History: Reports: LASIK Cardiovascular Surgical History: Reports: None Respiratory Surgical History: Reports: None GI Surgical History: Reports: Colonoscopy, EGD Female Surgical History: Reports: Hysterectomy Endocrine Surgical History: Reports: None Neurological Surgical History: Reports: C-Spine Other Neurological Surgeries/Procedures: [id number] fusion Musculoskeletal Surgical History: Reports: Knee Replacement, Shoulder Surgery, Other (See Below) Other Musculoskeletal Surgeries/Procedures:: knee hardware removal, bilateral total knee replacements, neck fusion Oncologic Surgical History: Reports: None Dermatological Surgical History: Reports: Other (See Below) Social & Family History - Family History Family Medical History: No Pertinent Family History - Caffeine Use Caffeine Use: Reports: None - Living Situation & Occupation Living situation: Reports: , with Spouse, with Family (2 kids) Occupation: Employed (RN at [employer]) ED ROS GENERAL - Review of Systems Review Of Systems: See Below Constitutional: Denies: Fever, Chills HEENT: Reports: No Symptoms Respiratory: Reports: Shortness of Breath, Cough Cardiovascular: Reports: Chest Pain Endocrine: Reports: No Symptoms GI/Abdominal: Reports: No Symptoms Neurological: Reports: No Symptoms ED EXAM, GENERAL - Physical Exam Exam: See Below Exam Limited By: No Limitations General Appearance: Alert, Obese, Other (She is short of breath we are attempting high flow oxygen) Head: Atraumatic, Normocephalic Neck: Normal Inspection, Supple, Non-Tender, Full Range of Motion Respiratory/Chest: Crackles (Both lung bases) Cardiovascular: Regular Rate, Rhythm, No Edema, No Murmur GI/Abdominal: Normal Bowel Sounds, Soft, Non-Tender #1 Interpretation EKG Date: 01/23/21 Rhythm: NSR Rate (Beats/Min): 67 Sylva: Normal P-Wave: Present QRS: Other (Poor R wave progression) ST-T: Normal QT: Normal EKG Interpretation Comments: Abnormal EKG, poor R wave progression Course - Vital Signs Last Recorded V/S: Last Vital Signs Temp 36.7 C 01/26/21 04:59 Pulse 67 01/26/21 04:59 Resp 20 01/26/21 04:59 BP 112/58 L 01/26/21 04:59 Pulse Ox 87 L 01/26/21 04:59 - Orders/Labs/Meds Orders: Medication Orders Albuterol/Ipratropium (Albuterol/Ipratropium 3.0-0.5 Mg/3 Ml Neb Soln) 3 ml NEB Q4H PRN PRN Reason: Shortness Of Breath/wheezing Last Admin: 01/26/21 08:35 Dose: 3 ml Documented by: Admin: 01/26/21 04:49 Dose: 3 ml Documented by: Admin: 01/25/21 21:29 Dose: 3 ml Documented by: Admin: 01/25/21 14:56 Dose: 3 ml Documented by: YOU Apixaban (Apixaban 5 Mg Tab) 5 mg PO BID [facility] Last Admin: 01/25/21 20:56 Dose: 5 mg Documented by: Admin: 01/25/21 11:10 Dose: 5 mg Documented by: ADAM Baricitinib (Baricitinib 2 Mg Tab) 4 mg PO DAILY DONATO Stop: 02/07/21 09:01 Last Admin: 01/25/21 11:10 Dose: 4 mg Documented by: ADAM Dexamethasone (Dexamethasone 4 Mg/Ml 5 Ml Mdv) 20 mg IVPUSH DAILY DONATO Stop: 01/30/21 09:01 Dexamethasone (Dexamethasone 4 Mg Tab) 6 mg PO DAILY DONATO Remdesivir 100 mg/ Sodium (Chloride) 100 mls @ 100 mls/hr IV Q24H DONATO Stop: 01/27/21 15:59 Last Admin: 01/25/21 15:35 Dose: 100 mls/hr Documented by: Infusion: 01/24/21 16:46 Dose: 100 mls/hr Documented by: Admin: 01/24/21 15:46 Dose: 100 mls/hr Documented by: MARIBEL Azithromycin 500 mg/ Sodium (Chloride) 250 mls @ 250 mls/hr IV Q24H [facility] Last Admin: 01/25/21 20:57 Dose: 250 mls/hr Documented by: Infusion: 01/24/21 23:01 Dose: 250 mls/hr Documented by: Admin: 01/24/21 22:01 Dose: 250 mls/hr Documented by: GIOVANNA Ceftriaxone Sodium 2 gm/ (Sodium Chloride) 100 mls @ 200 mls/hr IV Q24H [facility] Last Admin: 01/25/21 22:34 Dose: 200 mls/hr Documented by: KEVIN Promethazine HCl 12.5 mg/ (Sodium Chloride) 50.5 mls @ 100 mls/hr IV Q6H PRN PRN Reason: Nausea/Vomiting Levothyroxine Sodium (Levothyroxine 200 Mcg Tab) 200 mcg PO DAILY [facility] Last Admin: 01/25/21 11:09 Dose: 200 mcg Documented by: ADAM Morphine Sulfate (Morphine 2 Mg/Ml Syringe) 2 mg IVPUSH Q4H PRN PRN Reason: Pain (severe 7-10) Stop: 01/26/21 10:14 Oxycodone HCl (Oxycodone 5 Mg Tab) 5 mg PO Q6H PRN PRN Reason: Pain (moderate 4-6) Last Admin: 01/25/21 21:26 Dose: 5 mg Documented by: ANGELO Labs: Laboratory Tests 01/23/21 01/23/21 01/23/21 Range/Units 13:20 13:20 13:20 WBC 7.79 (3.98-10.04) K/mm3 RBC 4.29 (3.98-5.22) M/mm3 Hgb 13.0 (11.2-15.7) gm/dl Hct 41.2 (34.1-44.9) % MCV 96.0 H (79.4-94.8) fl MCH 30.3 (25.6-32.2) pg MCHC 31.6 L (32.2-35.5) g/dl RDW Std Deviation 51.2 H (36.4-46.3) fL Plt Count 295 D (182-369) K/mm3 MPV 10.5 (9.4-12.3) fl Neut % (Auto) (34.0-71.1) % Lymph % (Auto) (19.3-51.7) % Carver % (Auto) (4.7-12.5) % Eos % (Auto) (0.7-5.8) Baso % (Auto) (0.1-1.2) % Neut # (Auto) (1.56-6.13) K/mm3 Lymph # (Auto) (1.18-3.74) K/mm3 Carver # (Auto) (0.24-0.36) K/mm3 Eos # (Auto) (0.04-0.36) K/mm3 Baso # (Auto) (0.01-0.08) K/mm3 Neutrophils % (Manual) 78 H (40-60) % Band Neutrophils % 0 (0-10) % Lymphocytes % (Manual) 16 L (20-40) % Atypical Lymphs % 0 % Monocytes % (Manual) 6 (2-10) % Eosinophils % (Manual) 0 L (0.7-5.8) % Basophils % (Manual) 0 L (0.1-1.2) Manual Slide Review Platelet Estimate Adequate RBC Morph Comment Normal APTT (21.7-31.4) SECONDS D-Dimer, Quantitative 2.63 H (0.19-0.50) mg/L Puncture Site ABG pH (7.35-7.45) ABG pCO2 (35.0-45.0) mmHg ABG pO2 (80.0-100.0) mmHg ABG HCO3 (22.0-26.0) meq/L ABG O2 Saturation (96.0-97.0) % ABG Base Excess (-2-2.0) Rony Test A-a Gradient mmHg O2 Delivery Device Oxygen Flow Rate FiO2 (21.00-100.00) % Sodium (136-145) mEq/L Potassium (3.5-5.1) mEq/L Chloride (98-107) mEq/L Carbon Dioxide (21-32) mEq/L Anion Gap (5-15) BUN (7-18) mg/dL Creatinine (0.55-1.02) mg/dL Est Cr Clr Drug Dosing mL/min Estimated GFR (MDRD) (>60) mL/min BUN/Creatinine Ratio (14-18) Glucose (70-99) mg/dL Calcium (8.5-10.1) mg/dL Phosphorus (2.6-4.7) mg/dL Magnesium (1.8-2.4) mg/dL Ferritin 423 H (8-252) ng/ml Total Bilirubin (0.2-1.0) mg/dL Direct Bilirubin (0.0-0.2) mg/dl AST (15-37) U/L ALT (14-59) U/L Alkaline Phosphatase (46-116) U/L Lactate Dehydrogenase (81-234) U/L Troponin I (0.00-0.056) ng/mL C-Reactive Protein (<1.0) mg/dL Total Protein (6.4-8.2) g/dl Albumin (3.4-5.0) g/dl Globulin gm/dL Albumin/Globulin Ratio (1-2) 01/23/21 01/23/21 01/23/21 Range/Units 13:20 13:41 14:55 WBC (3.98-10.04) K/mm3 RBC (3.98-5.22) M/mm3 Hgb (11.2-15.7) gm/dl Hct (34.1-44.9) % MCV (79.4-94.8) fl MCH (25.6-32.2) pg MCHC (32.2-35.5) g/dl RDW Std Deviation (36.4-46.3) fL Plt Count (182-369) K/mm3 MPV (9.4-12.3) fl Neut % (Auto) (34.0-71.1) % Lymph % (Auto) (19.3-51.7) % Carver % (Auto) (4.7-12.5) % Eos % (Auto) (0.7-5.8) Baso % (Auto) (0.1-1.2) % Neut # (Auto) (1.56-6.13) K/mm3 Lymph # (Auto) (1.18-3.74) K/mm3 Carver # (Auto) (0.24-0.36) K/mm3 Eos # (Auto) (0.04-0.36) K/mm3 Baso # (Auto) (0.01-0.08) K/mm3 Neutrophils % (Manual) (40-60) % Band Neutrophils % (0-10) % Lymphocytes % (Manual) (20-40) % Atypical Lymphs % % Monocytes % (Manual) (2-10) % Eosinophils % (Manual) (0.7-5.8) % Basophils % (Manual) (0.1-1.2) Manual Slide Review Platelet Estimate RBC Morph Comment APTT (21.7-31.4) SECONDS D-Dimer, Quantitative (0.19-0.50) mg/L Puncture Site Rt radial ABG pH 7.46 H (7.35-7.45) ABG pCO2 43.3 (35.0-45.0) mmHg ABG pO2 51.0 L (80.0-100.0) mmHg ABG HCO3 30.3 H (22.0-26.0) meq/L ABG O2 Saturation 84.5 L (96.0-97.0) % ABG Base Excess 6.1 H (-2-2.0) Rony Test Positive A-a Gradient 572 mmHg O2 Delivery Device Hiflow nasal cannula Oxygen Flow Rate 60.0 FiO2 95.00 (21.00-100.00) % Sodium 140 (136-145) mEq/L Potassium 3.8 (3.5-5.1) mEq/L Chloride 101 (98-107) mEq/L Carbon Dioxide 32 (21-32) mEq/L Anion Gap 10.8 (5-15) BUN 14 (7-18) mg/dL Creatinine 0.9 (0.55-1.02) mg/dL Est Cr Clr Drug Dosing 72.07 mL/min Estimated GFR (MDRD) > 60 (>60) mL/min BUN/Creatinine Ratio 15.6 (14-18) Glucose 133 H (70-99) mg/dL Calcium 8.6 (8.5-10.1) mg/dL Phosphorus (2.6-4.7) mg/dL Magnesium (1.8-2.4) mg/dL Ferritin (8-252) ng/ml Total Bilirubin 0.5 (0.2-1.0) mg/dL Direct Bilirubin 0.10 (0.0-0.2) mg/dl AST 37 (15-37) U/L ALT 37 (14-59) U/L Alkaline Phosphatase 95 (46-116) U/L Lactate Dehydrogenase 533 H (81-234) U/L Troponin I < 0.017 (0.00-0.056) ng/mL C-Reactive Protein 10.2 H* (<1.0) mg/dL Total Protein 9.0 H (6.4-8.2) g/dl Albumin 3.0 L (3.4-5.0) g/dl Globulin 6.0 gm/dL Albumin/Globulin Ratio 0.5 L (1-2) 01/23/21 01/23/21 01/24/21 Range/Units 18:04 21:49 05:38 WBC (3.98-10.04) K/mm3 RBC (3.98-5.22) M/mm3 Hgb (11.2-15.7) gm/dl Hct (34.1-44.9) % MCV (79.4-94.8) fl MCH (25.6-32.2) pg MCHC (32.2-35.5) g/dl RDW Std Deviation (36.4-46.3) fL Plt Count (182-369) K/mm3 MPV (9.4-12.3) fl Neut % (Auto) (34.0-71.1) % Lymph % (Auto) (19.3-51.7) % Carver % (Auto) (4.7-12.5) % Eos % (Auto) (0.7-5.8) Baso % (Auto) (0.1-1.2) % Neut # (Auto) (1.56-6.13) K/mm3 Lymph # (Auto) (1.18-3.74) K/mm3 Carver # (Auto) (0.24-0.36) K/mm3 Eos # (Auto) (0.04-0.36) K/mm3 Baso # (Auto) (0.01-0.08) K/mm3 Neutrophils % (Manual) (40-60) % Band Neutrophils % (0-10) % Lymphocytes % (Manual) (20-40) % Atypical Lymphs % % Monocytes % (Manual) (2-10) % Eosinophils % (Manual) (0.7-5.8) % Basophils % (Manual) (0.1-1.2) Manual Slide Review Platelet Estimate RBC Morph Comment APTT 21.3 L 30.9 (21.7-31.4) SECONDS D-Dimer, Quantitative (0.19-0.50) mg/L Puncture Site ABG pH (7.35-7.45) ABG pCO2 (35.0-45.0) mmHg ABG pO2 (80.0-100.0) mmHg ABG HCO3 (22.0-26.0) meq/L ABG O2 Saturation (96.0-97.0) % ABG Base Excess (-2-2.0) Rony Test A-a Gradient mmHg O2 Delivery Device Oxygen Flow Rate FiO2 (21.00-100.00) % Sodium (136-145) mEq/L Potassium (3.5-5.1) mEq/L Chloride (98-107) mEq/L Carbon Dioxide (21-32) mEq/L Anion Gap (5-15) BUN (7-18) mg/dL Creatinine (0.55-1.02) mg/dL Est Cr Clr Drug Dosing mL/min Estimated GFR (MDRD) (>60) mL/min BUN/Creatinine Ratio (14-18) Glucose (70-99) mg/dL Calcium (8.5-10.1) mg/dL Phosphorus 3.7 (2.6-4.7) mg/dL Magnesium (1.8-2.4) mg/dL Ferritin (8-252) ng/ml Total Bilirubin (0.2-1.0) mg/dL Direct Bilirubin (0.0-0.2) mg/dl AST (15-37) U/L ALT (14-59) U/L Alkaline Phosphatase (46-116) U/L Lactate Dehydrogenase (81-234) U/L Troponin I (0.00-0.056) ng/mL C-Reactive Protein (<1.0) mg/dL Total Protein (6.4-8.2) g/dl Albumin (3.4-5.0) g/dl Globulin gm/dL Albumin/Globulin Ratio (1-2) 01/24/21 01/24/21 01/24/21 Range/Units 05:38 05:38 05:38 WBC 5.87 (3.98-10.04) K/mm3 RBC 3.81 L (3.98-5.22) M/mm3 Hgb 11.1 L D (11.2-15.7) gm/dl Hct 36.5 (34.1-44.9) % MCV 95.8 H (79.4-94.8) fl MCH 29.1 (25.6-32.2) pg MCHC 30.4 L (32.2-35.5) g/dl RDW Std Deviation 50.0 H (36.4-46.3) fL Plt Count 271 (182-369) K/mm3 MPV 10.3 (9.4-12.3) fl Neut % (Auto) 66.1 (34.0-71.1) % Lymph % (Auto) 27.4 (19.3-51.7) % Carver % (Auto) 5.8 (4.7-12.5) % Eos % (Auto) 0 L (0.7-5.8) Baso % (Auto) 0.2 (0.1-1.2) % Neut # (Auto) 3.88 (1.56-6.13) K/mm3 Lymph # (Auto) 1.61 (1.18-3.74) K/mm3 Carver # (Auto) 0.34 (0.24-0.36) K/mm3 Eos # (Auto) 0.00 L (0.04-0.36) K/mm3 Baso # (Auto) 0.01 (0.01-0.08) K/mm3 Neutrophils % (Manual) (40-60) % Band Neutrophils % (0-10) % Lymphocytes % (Manual) (20-40) % Atypical Lymphs % % Monocytes % (Manual) (2-10) % Eosinophils % (Manual) (0.7-5.8) % Basophils % (Manual) (0.1-1.2) Manual Slide Review Abnormal smear Platelet Estimate RBC Morph Comment APTT 22.8 (21.7-31.4) SECONDS D-Dimer, Quantitative 1.75 H (0.19-0.50) mg/L Puncture Site ABG pH (7.35-7.45) ABG pCO2 (35.0-45.0) mmHg ABG pO2 (80.0-100.0) mmHg ABG HCO3 (22.0-26.0) meq/L ABG O2 Saturation (96.0-97.0) % ABG Base Excess (-2-2.0) Rony Test A-a Gradient mmHg O2 Delivery Device Oxygen Flow Rate FiO2 (21.00-100.00) % Sodium 139 (136-145) mEq/L Potassium 4.0 (3.5-5.1) mEq/L Chloride 101 (98-107) mEq/L Carbon Dioxide 31 (21-32) mEq/L Anion Gap 11.0 (5-15) BUN 16 (7-18) mg/dL Creatinine 0.8 (0.55-1.02) mg/dL Est Cr Clr Drug Dosing 81.08 mL/min Estimated GFR (MDRD) > 60 (>60) mL/min BUN/Creatinine Ratio 20.0 H (14-18) Glucose 119 H (70-99) mg/dL Calcium 8.3 L (8.5-10.1) mg/dL Phosphorus (2.6-4.7) mg/dL Magnesium 2.1 (1.8-2.4) mg/dL Ferritin (8-252) ng/ml Total Bilirubin 0.4 (0.2-1.0) mg/dL Direct Bilirubin (0.0-0.2) mg/dl AST 31 (15-37) U/L ALT 32 (14-59) U/L Alkaline Phosphatase 78 (46-116) U/L Lactate Dehydrogenase (81-234) U/L Troponin I (0.00-0.056) ng/mL C-Reactive Protein 10.1 H* (<1.0) mg/dL Total Protein 7.7 (6.4-8.2) g/dl Albumin 2.5 L (3.4-5.0) g/dl Globulin 5.2 gm/dL Albumin/Globulin Ratio 0.5 L (1-2) 01/24/21 01/24/21 01/24/21 Range/Units 07:45 11:03 17:10 WBC (3.98-10.04) K/mm3 RBC (3.98-5.22) M/mm3 Hgb (11.2-15.7) gm/dl Hct (34.1-44.9) % MCV (79.4-94.8) fl MCH (25.6-32.2) pg MCHC (32.2-35.5) g/dl RDW Std Deviation (36.4-46.3) fL Plt Count (182-369) K/mm3 MPV (9.4-12.3) fl Neut % (Auto) (34.0-71.1) % Lymph % (Auto) (19.3-51.7) % Carver % (Auto) (4.7-12.5) % Eos % (Auto) (0.7-5.8) Baso % (Auto) (0.1-1.2) % Neut # (Auto) (1.56-6.13) K/mm3 Lymph # (Auto) (1.18-3.74) K/mm3 Carver # (Auto) (0.24-0.36) K/mm3 Eos # (Auto) (0.04-0.36) K/mm3 Baso # (Auto) (0.01-0.08) K/mm3 Neutrophils % (Manual) (40-60) % Band Neutrophils % (0-10) % Lymphocytes % (Manual) (20-40) % Atypical Lymphs % % Monocytes % (Manual) (2-10) % Eosinophils % (Manual) (0.7-5.8) % Basophils % (Manual) (0.1-1.2) Manual Slide Review Platelet Estimate RBC Morph Comment APTT 37.1 H 54.5 H (21.7-31.4) SECONDS D-Dimer, Quantitative (0.19-0.50) mg/L Puncture Site ABG pH (7.35-7.45) ABG pCO2 (35.0-45.0) mmHg ABG pO2 (80.0-100.0) mmHg ABG HCO3 (22.0-26.0) meq/L ABG O2 Saturation (96.0-97.0) % ABG Base Excess (-2-2.0) Rony Test A-a Gradient mmHg O2 Delivery Device Oxygen Flow Rate FiO2 (21.00-100.00) % Sodium (136-145) mEq/L Potassium (3.5-5.1) mEq/L Chloride (98-107) mEq/L Carbon Dioxide (21-32) mEq/L Anion Gap (5-15) BUN (7-18) mg/dL Creatinine (0.55-1.02) mg/dL Est Cr Clr Drug Dosing mL/min Estimated GFR (MDRD) (>60) mL/min BUN/Creatinine Ratio (14-18) Glucose (70-99) mg/dL Calcium (8.5-10.1) mg/dL Phosphorus (2.6-4.7) mg/dL Magnesium (1.8-2.4) mg/dL Ferritin (8-252) ng/ml Total Bilirubin (0.2-1.0) mg/dL Direct Bilirubin 0.10 (0.0-0.2) mg/dl AST (15-37) U/L ALT (14-59) U/L Alkaline Phosphatase (46-116) U/L Lactate Dehydrogenase (81-234) U/L Troponin I (0.00-0.056) ng/mL C-Reactive Protein (<1.0) mg/dL Total Protein (6.4-8.2) g/dl Albumin (3.4-5.0) g/dl Globulin gm/dL Albumin/Globulin Ratio (1-2) Meds: Medications Generic Name Dose Route Start Last Admin Trade Name Freq PRN Reason Stop Dose Admin Albuterol/Ipratropium 3 ml 01/25/21 10:13 01/26/21 08:35 Albuterol/Ipratropium 3.0-0.5 Mg/3 Ml Neb Soln NEB 3 ml Q4H PRN Administration Shortness Of Breath/wheezing Apixaban 5 mg 01/25/21 11:00 01/25/21 20:56 Apixaban 5 Mg Tab PO 5 mg BID DONATO Administration Baricitinib 4 mg 01/25/21 11:00 01/25/21 11:10 Baricitinib 2 Mg Tab PO 02/07/21 09:01 4 mg DAILY DONATO Administration Dexamethasone 20 mg 01/26/21 09:00 Dexamethasone 4 Mg/Ml 5 Ml Mdv IVPUSH 01/30/21 09:01 DAILY DONATO Dexamethasone 6 mg 01/31/21 09:00 Dexamethasone 4 Mg Tab PO DAILY DONATO Remdesivir 100 mg/ Sodium 100 mls @ 100 mls/hr 01/24/21 15:00 01/25/21 15:35 Chloride IV 01/27/21 15:59 100 mls/hr Q24H DONATO Administration Azithromycin 500 mg/ Sodium 250 mls @ 250 mls/hr 01/24/21 21:15 01/25/21 20:57 Chloride IV 250 mls/hr Q24H DONATO Administration Ceftriaxone Sodium 2 gm/ 100 mls @ 200 mls/hr 01/25/21 23:00 01/25/21 22:34 Sodium Chloride IV 200 mls/hr Q24H DONATO Administration Promethazine HCl 12.5 mg/ 50.5 mls @ 100 mls/hr 01/25/21 10:13 Sodium Chloride IV Q6H PRN Nausea/Vomiting Levothyroxine Sodium 200 mcg 01/25/21 11:00 01/25/21 11:09 Levothyroxine 200 Mcg Tab PO 200 mcg DAILY DONATO Administration Morphine Sulfate 2 mg 01/25/21 10:13 Morphine 2 Mg/Ml Syringe IVPUSH 01/26/21 10:14 Q4H PRN Pain (severe 7-10) Oxycodone HCl 5 mg 01/25/21 10:13 01/25/21 21:26 Oxycodone 5 Mg Tab PO 5 mg Q6H PRN Administration Pain (moderate 4-6) Discontinued Medications Generic Name Dose Route Start Last Admin Trade Name Freq PRN Reason Stop Dose Admin Acetaminophen 975 mg 01/24/21 11:54 01/24/21 12:28 Acetaminophen 325 Mg Tab PO 01/24/21 11:55 975 mg NOW ONE Administration Ceftriaxone Sodium Confirm 01/24/21 21:51 01/24/21 23:40 Ceftriaxone 1 Gm Advvial Administered 01/24/21 21:52 1 gm Dose Administration 1 gm IV .STK-MED ONE Dexamethasone 6 mg 01/24/21 07:45 01/25/21 09:13 Dexamethasone 4 Mg/Ml 5 Ml Mdv IV 6 mg Q24H DONATO Administration Dexamethasone 14 mg 01/25/21 11:00 01/25/21 11:11 Dexamethasone 4 Mg/Ml 5 Ml Mdv IVPUSH 01/25/21 11:01 14 mg ONETIME ONE Administration Heparin Sodium (Porcine) 5,000 units 01/23/21 17:43 01/23/21 18:04 Heparin Sodium 5,000 Units/Ml Vial IVPUSH 01/23/21 17:44 5,000 units .BOLUS ONE Administration Heparin Sodium (Porcine) 2,500 units 01/24/21 07:26 01/24/21 07:34 Heparin Sodium 5,000 Units/Ml Vial IVPUSH 01/24/21 07:27 2,500 units .BOLUS ONE Administration Protocol Heparin Sodium (Porcine) 1,500 units 01/24/21 12:20 01/24/21 12:27 Heparin Sodium 5,000 Units/Ml Vial IVPUSH 01/24/21 12:21 1,500 units .BOLUS ONE Administration Heparin Sodium (Porcine) 2,500 units 01/25/21 06:22 01/25/21 06:39 Heparin Sodium 5,000 Units/Ml Vial IVPUSH 01/25/21 06:23 2,500 units .BOLUS ONE Administration Remdesivir 200 mg/ Sodium 250 mls @ 250 mls/hr 01/23/21 14:35 01/23/21 14:56 Chloride IV 01/23/21 14:36 250 mls/hr ONETIME ONE Administration Heparin Sodium/Dextrose 25,000 units in 500 mls @ 26 mls/hr 01/23/21 17:45 01/25/21 06:42 Heparin 25,000 Units In D5w 500 Ml IV 2,591 units/hr TITRATE DONATO 51.82 mls/hr Titration Protocol 1,300 UNITS/HR Remdesivir 100 mg/ Sodium 100 mls @ 100 mls/hr 01/24/21 07:45 01/24/21 08:10 Chloride IV 01/27/21 08:44 Not Given Q24H DONATO Ceftriaxone Sodium 1 gm/ 100 mls @ 200 mls/hr 01/24/21 21:15 01/24/21 23:40 Sodium Chloride IV 200 mls/hr Q24H DONATO Administration Sodium Chloride Confirm 01/24/21 21:52 01/24/21 22:07 Normal Saline Administered 01/24/21 21:53 Not Given Dose 100 mls @ as directed .ROUTE .STK-MED ONE Ceftriaxone Sodium 1 gm/ 100 mls @ 200 mls/hr 01/25/21 21:00 Sodium Chloride IV Q24H DONATO Sodium Chloride Confirm 01/25/21 15:19 01/25/21 15:43 Normal Saline Administered 01/25/21 15:20 Not Given Dose 100 mls @ as directed .ROUTE .STK-MED ONE Influenza Virus Vaccine 60 mcg 01/25/21 08:00 Flu Vacc [id number] 36mos Up/Pf 60 Mcg/0.5 Ml Syringe IM 01/25/21 08:01 .ONCE ONE - Re-Assessments/Exams Free Text/Narrative Re-Assessment/Exam: 01/23/21 15:45 Patient did okay on high flow oxygen with sats up to about 88% we attempted BiPAP right now her settings are 20/13 and 15 L she is satting in the mid to low 90s. 01/23/21 17:52 The patient has a elevated D-dimer she is not a good candidate to go over to CT right now. Further complicating things that she has had anaphylactic type reaction to IV contrast in the past. Had a long discussion with the patient about the pros and cons of anticoagulation and she agrees with anticoagulation. Careful review the patient has not had any GI upset she has been using ibuprofen this will have to stop. But she has had no nausea vomiting no black or tarry stools no bloody stools. No bleeding problems in the past. The patient be started on heparin. [facility] and cannot find an accepting facility at this point. Patient will need to stay in the emergency department until we can find her a bed. 01/24/21 11:53 Patient has done well through the night and into today have checked on her a few times and her O2 saturation has been good she has been sleeping so I have not bothered her. Had a discussion with her informed her that her D-dimer is coming down I do not know that there is any significance to this. Patient is on heparin. She complains of having headache. I do not like using opioids and headache however I have not had much success with much of anything else however before trying opioids with her we will try Benadryl and Tylenol. We are still trying to find a bed for her but thus far have not been able to. Departure - Departure Time of Disposition: 23:30 Disposition: Admitted As Inpatient 64 Clinical Impression: Pneumonia due to COVID-19 virus, Hypoxia - Discharge Information
[2021-01-23] MEDS ORDERED: REMDESIVIR 200 MG in Sodium Chloride 0.9% 250 ML IV ONE (14:35)
[2021-01-23] MEDS ORDERED: Heparin Sodium 5,000 Units/ML Vial IVPUSH ONE (17:43)
[2021-01-23] MEDS: Heparin Sodium/D5W 25,000 UNITS/500 ML BAG IV SCH (18:05)
[2021-01-24] MEDS ORDERED: Heparin Sodium 5,000 Units/ML Vial IVPUSH ONE ×2 (07:26→12:20)
[2021-01-24] MEDS ORDERED: REMDESIVIR 100 MG in Sodium Chloride 0.9% 100 ML IV SCH (07:45)
[2021-01-24] MEDS: Dexamethasone 4 MG/ML 5 ML MDV IV SCH (08:10)
--- NOTE | 2021-01-24 09:13 | CR ---
Chest: Portable view of the chest was obtained. Comparison: Prior chest x-ray of 01/18/21. Increasing density is seen within both sides of the chest compatible with mild worsening of COVID pneumonia. Heart size and mediastinum are stable. Left shoulder prosthesis is noted. Prior cervical spine surgery is noted. Impression: 1. Slight worsening of bilateral COVID pneumonia when compared to prior chest x-ray. 2. Other stable findings as described above. Diagnostic code #3
[2021-01-24] MEDS ORDERED: Acetaminophen 325 MG Tab PO ONE (11:54)
[2021-01-24] MEDS: Heparin Sodium/D5W 25,000 UNITS/500 ML BAG IV SCH (12:35)
[2021-01-24] MEDS: REMDESIVIR 100 MG in Sodium Chloride 0.9% 100 ML IV SCH (15:46)
[2021-01-24] MEDS ORDERED: cefTRIAXone 1 GM in Sodium Chloride 0.9% 100 ML IV SCH (21:15)
[2021-01-24] MEDS ORDERED: Sodium Chloride 0.9% 100 ML ONE (21:52)
[2021-01-24] MEDS: Azithromycin 500 MG in Sodium Chloride 0.9% 250 ML IV SCH (22:01)
[2021-01-24] MEDS: cefTRIAXone 1 GM AdvVial IV ONE ×2 (22:07→23:40)
[2021-01-25] MEDS: Heparin Sodium/D5W 25,000 UNITS/500 ML BAG IV SCH (02:05)
[2021-01-25] MEDS ORDERED: Heparin Sodium 5,000 Units/ML Vial IVPUSH ONE (06:22)
[2021-01-25] MEDS ORDERED: FLU Vacc QS2021-22 36MOS UP/PF 60 MCG/0.5 ML Syringe IM ONE (08:00)
[2021-01-25] MEDS: Dexamethasone 4 MG/ML 5 ML MDV IV SCH (09:13)
[2021-01-25] MEDS ORDERED: Promethazine 12.5 MG in Sodium Chloride 0.9% 50 ML IV PRN (10:13)
[2021-01-25] MEDS ORDERED: Morphine 2 MG/ML SYRINGE IVPUSH PRN (10:13)
[2021-01-25] MEDS ORDERED: Dexamethasone 4 MG/ML 5 ML MDV IVPUSH ONE (11:00)
[2021-01-25] MEDS: Apixaban 5 MG Tab PO SCH ×2 (11:10→20:56)
--- NOTE | 2021-01-25 11:13 | PCM.HP.2 ---
H&P History of Present Illness - General Date of Service: 01/24/21 Admit Problem/Dx: Admission Diagnosis/Problem Admission Diagnosis/Problem Hypoxia Source of Information: Patient, Other - History of Present Illness Initial Comments - Free Text/Narative: Patient is a 55-year-old female with a past medical history of morbid obesity who presented to the ER due to shortness of breath and worsening oxygen saturation. Patient started to have Covid 19 symptoms including mild headache, fatigue and shortness of breath on January 08, 2021 and was diagnosed with Covid infection. Patient visited our ER on January 18. At that time, she refused monoclonal antibody treatment. She was discharged on dexamethasone and oxygen supplementation. She has not received any Covid vaccines. In the ER, she was f ound to have oxygen desaturation, 70s which was improved after she was put on BiPAP. Chest x-ray showed slight worsening of bilateral Covid pneumonia when compared to prior chest x-ray. D-dimer 1.75, ABG showed PO2 51, CRP of 10.2, lactate dehydrogenase 533, and a troponin negative. - Related Data Allergies/Adverse Reactions: Allergies Allergy/AdvReac Type Severity Reaction Status Date / Time Iodinated Contrast Media Allergy Severe Anaphylactic Verified 01/23/21 13:23 [Iodinated Contrast Media - Shock IV Dye] Penicillins Allergy Intermediate Rash Verified 01/25/21 10:33 naproxen sodium [From Aleve] AdvReac Mild Stomach Verified 01/25/21 10:33 Ache Sulfa (Sulfonamide AdvReac Mild Nausea Verified 01/25/21 10:33 Antibiotics) Home Medications: Home Meds Levothyroxine 200 mcg PO DAILY 07/24/14 [History] valACYclovir HCl [valACYclovir] 1,000 tab PO BID PRN 08/01/14 [History] clindamycin HCL [Cleocin] 150 mg PO ASDIRECTED PRN 12/19/18 [History] Cyclobenzaprine [Flexeril] 10 mg PO BEDTIME PRN 01/19/21 [History] Ibuprofen 400 mg PO Q6H PRN 01/19/21 [History] Magnesium Oxide [Magnesium] 400 mg PO DAILY 01/19/21 [History] dexAMETHasone [Dexamethasone] 6 mg PO QAM 7 Days #11 tab 01/19/21 [Rx] Past Medical History Other HEENT History: myringitis Cardiovascular History: Reports: High Cholesterol Respiratory History: Reports: None Gastrointestinal History: Reports: GERD Genitourinary History: Reports: Other (See Below) Other Genitourinary History: diagnostic laparoscopy with lysis of adhesions; remote hx hematuria ACID LEVELER History: Reports: Endometriosis, , Spontaneous Musculoskeletal History: Reports: Fracture, Osteoarthritis Other Musculoskeletal History: right knee fracture, muscle spasm, back pain, rib fracture, lateral epicondylitis, left shoulder pain, right foot pain Neurological History: Reports: Migraines, Other (See Below) Other Neuro History: neck injury, head trauma, c3 cervical fracture Psychiatric History: Reports: None Endocrine/Metabolic History: Reports: Hypothyroidism, Obesity/BMI 30+ Hematologic History: Reports: None Immunologic History: Reports: None Oncologic (Cancer) History: Reports: None Dermatologic History: Reports: None - Infectious Disease History Infectious Disease History: Reports: Novel Coronavirus - Past Surgical History Head Surgeries/Procedures: Reports: None HEENT Surgical History: Reports: LASIK Cardiovascular Surgical History: Reports: None Respiratory Surgical History: Reports: None GI Surgical History: Reports: Colonoscopy, EGD Female Surgical History: Reports: Hysterectomy Endocrine Surgical History: Reports: None Neurological Surgical History: Reports: C-Spine Other Neurological Surgeries/Procedures: [id number] fusion Musculoskeletal Surgical History: Reports: Knee Replacement, Shoulder Surgery, Other (See Below) Other Musculoskeletal Surgeries/Procedures:: knee hardware removal, bilateral total knee replacements, neck fusion, TSA Oncologic Surgical History: Reports: None Dermatological Surgical History: Reports: Other (See Below) Social & Family History - Family History Family Medical History: No Pertinent Family History (Denies genetic diseases in family) - Tobacco Use Tobacco Use Status *Q: Former Tobacco User Used Tobacco, but Quit: Yes Month/Year Tobacco Last Used: 2018 - Caffeine Use Caffeine Use: Reports: Coffee - Recreational Drug Use Recreational Drug Use: No - Living Situation & Occupation Living situation: Reports: , with Spouse, with Family (2 kids) Occupation: Employed (RN at [email or web address]) H&P Review of Systems - Review of Systems: Review Of Systems: See Below General: Reports: Malaise, Fatigue HEENT: Reports: No Symptoms Pulmonary: Reports: Shortness of Breath Cardiovascular: Reports: No Symptoms Gastrointestinal: Reports: No Symptoms Genitourinary: Reports: No Symptoms Musculoskeletal: Reports: No Symptoms Skin: Reports: No Symptoms Psychiatric: Reports: No Symptoms Neurological: Reports: No Symptoms Hematologic/Lymphatic: Reports: No Symptoms Immunologic: Reports: No Symptoms Exam - Exam Exam: See Below - Vital Signs Vital Signs: Last Vital Signs Temp 36.9 C 01/25/21 08:40 Pulse 62 01/25/21 08:40 Resp 22 H 01/25/21 08:40 BP 105/84 01/25/21 08:40 Pulse Ox 87 L 01/25/21 10:13 Weight: 132.086 kg - Exam General: Alert, Oriented, Cooperative, Mild Distress (Due to shortness of breath) HEENT: Conjunctiva Clear, EOMI, Pupils Equal, Pupils Reactive Neck: Supple, +2 Carotid Pulse wo Bruit, Full Range of Motion. No: JVD Lungs: Decreased Breath Sounds, Crackles Cardiovascular: Regular Rate, Regular Rhythm GI/Abdominal Exam: Normal Bowel Sounds, Soft, Non-Tender, No Organomegaly, No Distention Extremities: Normal Inspection, Normal Range of Motion, Non-Tender, No Pedal Edema Skin: Warm, Dry, Intact Neurological: Cranial Nerves Intact, Reflexes Equal Bilateral, Strength Equal Bilateral Neuro Extensive - Mental Status: Alert, Oriented x3 Psychiatric: Alert, Normal Affect, Normal Mood - Patient Data Lab Results Last 24 hrs: Laboratory Results - last 24 hr 01/24/21 01/24/21 01/24/21 Range/Units 11:03 17:10 23:05 WBC (3.98-10.04) K/mm3 RBC (3.98-5.22) M/mm3 Hgb (11.2-15.7) gm/dl Hct (34.1-44.9) % MCV (79.4-94.8) fl MCH (25.6-32.2) pg MCHC (32.2-35.5) g/dl RDW Std Deviation (36.4-46.3) fL Plt Count (182-369) K/mm3 MPV (9.4-12.3) fl APTT 37.1 H 54.5 H 51.3 H (21.7-31.4) SECONDS 01/25/21 01/25/21 Range/Units 05:10 05:10 WBC 6.18 (3.98-10.04) K/mm3 RBC 3.84 L (3.98-5.22) M/mm3 Hgb 11.5 (11.2-15.7) gm/dl Hct 36.4 (34.1-44.9) % MCV 94.8 (79.4-94.8) fl MCH 29.9 (25.6-32.2) pg MCHC 31.6 L (32.2-35.5) g/dl RDW Std Deviation 48.4 H (36.4-46.3) fL Plt Count 302 (182-369) K/mm3 MPV 10.2 (9.4-12.3) fl APTT 28.9 D (21.7-31.4) SECONDS Result Diagrams: 01/25/21 05:10 01/24/21 05:38 Sepsis Event Note - Evaluation Sepsis Screening Result: No Definite Risk - Focused Exam Vital Signs: Vital Signs Temp Pulse Resp BP Pulse Ox Pulse Ox 01/25/21 10:13 87 L 01/25/21 09:00 88 L 01/25/21 08:40 36.9 C 62 22 H 105/84 80 L 01/25/21 06:49 82 L 01/25/21 03:51 35.9 C L 62 12 105/84 81 L 01/25/21 00:20 84 L 01/24/21 23:05 37.0 C 75 20 133/75 77 L Problem List Initiated/Reviewed/Updated: Yes Orders Last 24hrs: Active Orders 24 hr Category Date Time Status Patient Status [ADT] Routine ADT 01/24/21 22:08 Active Bedrest Bedside Commode [RC] ASDIRECTED Care 01/25/21 10:13 Active Cardiac Monitoring [RC] CONTINUOUS Care 01/25/21 10:13 Active Intake and Output [RC] QSHIFT Care 01/25/21 10:13 Active Oxygen Therapy [RC] PRN Care 01/25/21 10:13 Active Pulse Oximetry [RC] CONTINUOUS Care 01/25/21 10:13 Active RT Aerosol Therapy [RC] ASDIRECTED Care 01/25/21 10:14 Active RT Aerosol Therapy [RC] ASDIRECTED Care 01/25/21 10:14 Active VTE/DVT Education [RC] PER UNIT ROUTINE Care 01/25/21 10:13 Active Vaccine to be Administered/Admin Charge [RC] ASDIRECTED Care 01/25/21 07:56 Active Vital Signs [RC] Q4H Care 01/25/21 10:13 Active Consistent Carbohydrate Diet [DIET] Diet 01/25/21 Dinner Active C-REACTIVE PROTEIN [CHEM] DAILY Lab 01/26/21 05:00 Ordered C-REACTIVE PROTEIN [CHEM] DAILY Lab 01/27/21 05:00 Ordered C-REACTIVE PROTEIN [CHEM] DAILY Lab 01/28/21 05:00 Ordered C-REACTIVE PROTEIN [CHEM] DAILY Lab 01/29/21 05:00 Ordered C-REACTIVE PROTEIN [CHEM] DAILY Lab 01/30/21 05:00 Ordered CBC WITH AUTO DIFF [HEME] DAILY Lab 01/26/21 05:00 Ordered CBC WITH AUTO DIFF [HEME] DAILY Lab 01/27/21 05:00 Ordered CBC WITH AUTO DIFF [HEME] DAILY Lab 01/28/21 05:00 Ordered CBC WITH AUTO DIFF [HEME] DAILY Lab 01/29/21 05:00 Ordered COMPREHENSIVE METABOLIC PN,CMP [CHEM] DAILY Lab 01/25/21 05:10 Received COMPREHENSIVE METABOLIC PN,CMP [CHEM] DAILY Lab 01/26/21 10:15 Ordered COMPREHENSIVE METABOLIC PN,CMP [CHEM] DAILY Lab 01/27/21 10:15 Ordered COMPREHENSIVE METABOLIC PN,CMP [CHEM] DAILY Lab 01/28/21 10:15 Ordered COMPREHENSIVE METABOLIC PN,CMP [CHEM] DAILY Lab 01/29/21 10:15 Ordered RESPIRATORY CULT [MREF] Stat Lab 01/25/21 10:14 Ordered aPTT [PTT,PARTIAL THROMBOPLSTIN TIME] [COAG] Routine Lab 01/25/21 12:00 Ordered Albuterol/Ipratropium [DuoNeb 3.0-0.5 MG/3 ML] Med 01/25/21 10:13 Active 3 ml NEB Q4H PRN Apixaban [Eliquis] Med 01/25/21 11:00 Active 5 mg PO BID Azithromycin [Zithromax] 500 mg Med 01/24/21 21:15 Active Sodium Chloride 0.9% [Normal Saline (AdvBag)] 250 ml IV Q24H Baricitinib [Olumiant] Med 01/25/21 11:00 Active 4 mg PO DAILY Levothyroxine Med 01/25/21 11:00 Active 200 mcg PO DAILY Morphine Med 01/25/21 10:13 Active 2 mg IVPUSH Q4H PRN Promethazine [Phenergan] 12.5 mg Med 01/25/21 10:13 Active Sodium Chloride 0.9% [Normal Saline] 50 ml IV Q6H Remdesivir 100 mg Med 01/24/21 15:00 Active Sodium Chloride 0.9% [Normal Saline] 100 ml IV Q24H [id number] [Rocephin] 2 gm Med 01/25/21 23:00 Active Sodium Chloride 0.9% [Normal Saline] 100 ml IV Q24H dexAMETHasone Med 01/26/21 09:00 Active 20 mg IVPUSH DAILY dexAMETHasone Med 01/31/21 09:00 Active 6 mg PO DAILY oxyCODONE Med 01/25/21 10:13 Active 5 mg PO Q6H PRN Code Status [Resuscitation Status] Routine Resus Stat 01/25/21 08:01 Ordered Medication Orders Albuterol/Ipratropium (Albuterol/Ipratropium 3.0-0.5 Mg/3 Ml Neb Soln) 3 ml NEB Q4H PRN PRN Reason: Shortness Of Breath/wheezing Apixaban (Apixaban 5 Mg Tab) 5 mg PO BID [facility] Baricitinib (Baricitinib 2 Mg Tab) 4 mg PO DAILY [facility] Stop: 02/07/21 09:01 Dexamethasone (Dexamethasone 4 Mg/Ml 5 Ml Mdv) 20 mg IVPUSH DAILY [facility] Stop: 01/30/21 09:01 Dexamethasone (Dexamethasone 4 Mg Tab) 6 mg PO DAILY [facility] Remdesivir 100 mg/ Sodium (Chloride) 100 mls @ 100 mls/hr IV Q24H [facility] Stop: 01/27/21 15:59 Last Admin: 01/24/21 15:46 Dose: 100 mls/hr Documented by: MARIBEL Azithromycin 500 mg/ Sodium (Chloride) 250 mls @ 250 mls/hr IV Q24H [facility] Last Admin: 01/24/21 22:01 Dose: 250 mls/hr Documented by: [email or web address] Ceftriaxone Sodium 2 gm/ (Sodium Chloride) 100 mls @ 200 mls/hr IV Q24H [facility] Promethazine HCl 12.5 mg/ (Sodium Chloride) 50.5 mls @ 100 mls/hr IV Q6H PRN PRN Reason: Nausea/Vomiting Levothyroxine Sodium (Levothyroxine 200 Mcg Tab) 200 mcg PO DAILY [facility] Morphine Sulfate (Morphine 2 Mg/Ml Syringe) 2 mg IVPUSH Q4H PRN PRN Reason: Pain (severe 7-10) Stop: 01/26/21 10:14 Oxycodone HCl (Oxycodone 5 Mg Tab) 5 mg PO Q6H PRN PRN Reason: Pain (moderate 4-6) Assessment/Plan Comment:: Assessment and plan: Acute hypoxic respiratory failure Patient possibly has a history of asthma. But it is most likely due to pneumonia Pulse ox Oxygen therapy, high flow/BiPAP as needed to keep oxygen saturation greater than 90% Covid pneumonia positive Covid test and Symptoms started on January 08, 2021. Chest x-ray showed bilateral pneumonia D-dimer 1.75, CRP 10.1 Considering oxygen desaturation and need of BiPAP, I would like to start her on dexamethasone 20 mg IV daily x 5 days followed by 6 mg p.o. daily. Eliquis 5 mg twice daily remdesivir was initiated in the ER, I would like to continue remdesivir baricitinib 4 mg oral daily Ceftriaxone and azithromycin Inhalers Prone position CBC, CMP and CRP daily Morbid obeisty, BMI 43.0 Consult dietitian Lifestyle modification Follow with PCP DVT prophylaxis: Eliquis CODE STATUS: Full Disposition: Patient likely needs to stay in the hospital for more than 4 days due to the nature of the Covid pneumonia with severe oxygen desaturation Prognosis: Poor - Mortality Measure Prognosis:: Poor
--- NOTE | 2021-01-25 11:30 | PCM.PN ---
- General Info Date of Service: 01/25/21 Admission Dx/Problem (Free Text): Admission Diagnosis/Problem Admission Diagnosis/Problem Hypoxia Subjective Update: Patient is a 55-year-old female with a past medical history of morbid obesity who presented to the ER due to shortness of breath and worsening oxygen saturation. Patient started to have Covid 19 symptoms including mild headache, fatigue and shortness of breath on January 08, 2021 and was subsequently diagnos ed with Covid infection. Patient states that she feels better or the same. Denies fever, chills, nausea, vomiting, or diarrhea. She is on 60L with FiO2 94% - Review of Systems Systems Review Comment:: General: Reports: Malaise, Fatigue HEENT: Reports: No Symptoms Pulmonary: Reports: Shortness of Breath Cardiovascular: Reports: No Symptoms Gastrointestinal: Reports: No Symptoms Genitourinary: Reports: No Symptoms Musculoskeletal: Reports: No Symptoms Skin: Reports: No Symptoms Psychiatric: Reports: No Symptoms Neurological: Reports: No Symptoms Hematologic/Lymphatic: Reports: No Symptoms Immunologic: Reports: No Symptoms - Patient Data Vitals - Most Recent: Last Vital Signs Temp 36.9 C 01/25/21 08:40 Pulse 62 01/25/21 08:40 Resp 22 H 01/25/21 08:40 BP 105/84 01/25/21 08:40 Pulse Ox 87 L 01/25/21 10:13 Weight - Most Recent: 132.086 kg I&O - Last 24 Hours: Intake & Output 01/24/21 01/25/21 01/25/21 22:59 06:59 14:59 Intake Total 1271 Output Total 950 Balance 321 Lab Results Last 24 Hours: Laboratory Results - last 24 hr 01/24/21 01/24/21 01/24/21 Range/Units 11:03 17:10 23:05 WBC (3.98-10.04) K/mm3 RBC (3.98-5.22) M/mm3 Hgb (11.2-15.7) gm/dl Hct (34.1-44.9) % MCV (79.4-94.8) fl MCH (25.6-32.2) pg MCHC (32.2-35.5) g/dl RDW Std Deviation (36.4-46.3) fL Plt Count (182-369) K/mm3 MPV (9.4-12.3) fl APTT 37.1 H 54.5 H 51.3 H (21.7-31.4) SECONDS Sodium (136-145) mEq/L Potassium (3.5-5.1) mEq/L Chloride (98-107) mEq/L Carbon Dioxide (21-32) mEq/L Anion Gap (5-15) BUN (7-18) mg/dL Creatinine (0.55-1.02) mg/dL Est Cr Clr Drug Dosing mL/min Estimated GFR (MDRD) (>60) mL/min BUN/Creatinine Ratio (14-18) Glucose (70-99) mg/dL Calcium (8.5-10.1) mg/dL Total Bilirubin (0.2-1.0) mg/dL AST (15-37) U/L ALT (14-59) U/L Alkaline Phosphatase (46-116) U/L Total Protein (6.4-8.2) g/dl Albumin (3.4-5.0) g/dl Globulin gm/dL Albumin/Globulin Ratio (1-2) 01/25/21 01/25/21 01/25/21 Range/Units 05:10 05:10 05:10 WBC 6.18 (3.98-10.04) K/mm3 RBC 3.84 L (3.98-5.22) M/mm3 Hgb 11.5 (11.2-15.7) gm/dl Hct 36.4 (34.1-44.9) % MCV 94.8 (79.4-94.8) fl MCH 29.9 (25.6-32.2) pg MCHC 31.6 L (32.2-35.5) g/dl RDW Std Deviation 48.4 H (36.4-46.3) fL Plt Count 302 (182-369) K/mm3 MPV 10.2 (9.4-12.3) fl APTT 28.9 D (21.7-31.4) SECONDS Sodium 141 (136-145) mEq/L Potassium 4.1 (3.5-5.1) mEq/L Chloride 104 (98-107) mEq/L Carbon Dioxide 30 (21-32) mEq/L Anion Gap 11.1 (5-15) BUN 25 H (7-18) mg/dL Creatinine 0.7 (0.55-1.02) mg/dL Est Cr Clr Drug Dosing 92.67 mL/min Estimated GFR (MDRD) > 60 (>60) mL/min BUN/Creatinine Ratio 35.7 H (14-18) Glucose 127 H (70-99) mg/dL Calcium 8.4 L (8.5-10.1) mg/dL Total Bilirubin 0.3 (0.2-1.0) mg/dL AST 27 (15-37) U/L ALT 14 (14-59) U/L Alkaline Phosphatase 74 (46-116) U/L Total Protein 7.4 (6.4-8.2) g/dl Albumin 2.3 L (3.4-5.0) g/dl Globulin 5.1 gm/dL Albumin/Globulin Ratio 0.5 L (1-2) Med Orders - Current: Current Medications Albuterol/Ipratropium (Albuterol/Ipratropium 3.0-0.5 Mg/3 Ml Neb Soln) 3 ml NEB Q4H PRN PRN Reason: Shortness Of Breath/wheezing Apixaban (Apixaban 5 Mg Tab) 5 mg PO BID [facility] Last Admin: 01/25/21 11:10 Dose: 5 mg Documented by: Baricitinib (Baricitinib 2 Mg Tab) 4 mg PO DAILY [facility] Stop: 02/07/21 09:01 Last Admin: 01/25/21 11:10 Dose: 4 mg Documented by: Dexamethasone (Dexamethasone 4 Mg/Ml 5 Ml Mdv) 20 mg IVPUSH DAILY [facility] Stop: 01/30/21 09:01 Dexamethasone (Dexamethasone 4 Mg Tab) 6 mg PO DAILY [facility] Remdesivir 100 mg/ Sodium (Chloride) 100 mls @ 100 mls/hr IV Q24H [facility] Stop: 01/27/21 15:59 Last Admin: 01/24/21 15:46 Dose: 100 mls/hr Documented by: Azithromycin 500 mg/ Sodium (Chloride) 250 mls @ 250 mls/hr IV Q24H [facility] Last Admin: 01/24/21 22:01 Dose: 250 mls/hr Documented by: Ceftriaxone Sodium 2 gm/ (Sodium Chloride) 100 mls @ 200 mls/hr IV Q24H [facility] Promethazine HCl 12.5 mg/ (Sodium Chloride) 50.5 mls @ 100 mls/hr IV Q6H PRN PRN Reason: Nausea/Vomiting Levothyroxine Sodium (Levothyroxine 200 Mcg Tab) 200 mcg PO DAILY [facility] Last Admin: 01/25/21 11:09 Dose: 200 mcg Documented by: Morphine Sulfate (Morphine 2 Mg/Ml Syringe) 2 mg IVPUSH Q4H PRN PRN Reason: Pain (severe 7-10) Stop: 01/26/21 10:14 Oxycodone HCl (Oxycodone 5 Mg Tab) 5 mg PO Q6H PRN PRN Reason: Pain (moderate 4-6) Discontinued Medications Acetaminophen (Acetaminophen 325 Mg Tab) 975 mg PO NOW ONE Stop: 01/24/21 11:55 Last Admin: 01/24/21 12:28 Dose: 975 mg Documented by: Ceftriaxone Sodium (Ceftriaxone 1 Gm Advvial) Confirm Administered Dose 1 gm IV .STK-MED ONE Stop: 01/24/21 21:52 Last Admin: 01/24/21 23:40 Dose: 1 gm Documented by: Dexamethasone (Dexamethasone 4 Mg/Ml 5 Ml Mdv) 6 mg IV Q24H [facility] Last Admin: 01/25/21 09:13 Dose: 6 mg Documented by: Dexamethasone (Dexamethasone 4 Mg/Ml 5 Ml Mdv) 14 mg IVPUSH ONETIME ONE Stop: 01/25/21 11:01 Last Admin: 01/25/21 11:11 Dose: 14 mg Documented by: Heparin Sodium (Porcine) (Heparin Sodium 5,000 Units/Ml Vial) 5,000 units IVPUSH .BOLUS ONE Stop: 01/23/21 17:44 Last Admin: 01/23/21 18:04 Dose: 5,000 units Documented by: Heparin Sodium (Porcine) (Heparin Sodium 5,000 Units/Ml Vial) 2,500 units IVPUSH .BOLUS ONE; Protocol Stop: 01/24/21 07:27 Last Admin: 01/24/21 07:34 Dose: 2,500 units Documented by: Heparin Sodium (Porcine) (Heparin Sodium 5,000 Units/Ml Vial) 1,500 units IVPUSH .BOLUS ONE Stop: 01/24/21 12:21 Last Admin: 01/24/21 12:27 Dose: 1,500 units Documented by: Heparin Sodium (Porcine) (Heparin Sodium 5,000 Units/Ml Vial) 2,500 units IVPUSH .BOLUS ONE Stop: 01/25/21 06:23 Last Admin: 01/25/21 06:39 Dose: 2,500 units Documented by: Remdesivir 200 mg/ Sodium (Chloride) 250 mls @ 250 mls/hr IV ONETIME ONE Stop: 01/23/21 14:36 Last Admin: 01/23/21 14:56 Dose: 250 mls/hr Documented by: Heparin Sodium/Dextrose (Heparin 25,000 Units In D5w 500 Ml) 25,000 units in 500 mls @ 26 mls/hr IV TITRATE DONATO; Protocol Last Titration: 01/25/21 06:42 Dose: 2,591 units/hr, 51.82 mls/hr Documented by: Remdesivir 100 mg/ Sodium (Chloride) 100 mls @ 100 mls/hr IV Q24H [facility] Stop: 01/27/21 08:44 Last Admin: 01/24/21 08:10 Dose: Not Given Documented by: Ceftriaxone Sodium 1 gm/ (Sodium Chloride) 100 mls @ 200 mls/hr IV Q24H [facility] Last Admin: 01/24/21 23:40 Dose: 200 mls/hr Documented by: Sodium Chloride (Normal Saline) Confirm Administered Dose 100 mls @ as directed .ROUTE .STK-MED ONE Stop: 01/24/21 21:53 Last Admin: 01/24/21 22:07 Dose: Not Given Documented by: Ceftriaxone Sodium 1 gm/ (Sodium Chloride) 100 mls @ 200 mls/hr IV Q24H [facility] Influenza Virus Vaccine (Flu Vacc [id number] 36mos Up/Pf 60 Mcg/0.5 Ml Syringe) 60 mcg IM .ONCE ONE Stop: 01/25/21 08:01 - Exam Physical Findings Comments:: General: Alert, Oriented, Cooperative, Mild Distress (Due to shortness of breath) HEENT: Conjunctiva Clear, EOMI, Pupils Equal, Pupils Reactive Neck: Supple, +2 Carotid Pulse wo Bruit, Full Range of Motion. No: JVD Lungs: Decreased Breath Sounds, Crackles Cardiovascular: Regular Rate, Regular Rhythm GI/Abdominal Exam: Normal Bowel Sounds, Soft, Non-Tender, No Organomegaly, No Distention Extremities: Normal Inspection, Normal Range of Motion, Non-Tender, No Pedal Edema Skin: Warm, Dry, Intact Neurological: Cranial Nerves Intact, Reflexes Equal Bilateral, Strength Equal Bilateral Neuro Extensive - Mental Status: Alert, Oriented x3 Psychiatric: Alert, Normal Affect, Normal Mood - Patient Data Lab Results Last 24 hrs: Laboratory Results - last 24 hr 01/24/21 01/24/21 01/24/21 Range/Units 11:03 17:10 23:05 WBC (3.98-10.04) K/mm3 RBC (3.98-5.22) M/mm3 Hgb (11.2-15.7) gm/dl Hct (34.1-44.9) % MCV (79.4-94.8) fl MCH (25.6-32.2) pg MCHC (32.2-35.5) g/dl RDW Std Deviation (36.4-46.3) fL Plt Count (182-369) K/mm3 MPV (9.4-12.3) fl APTT 37.1 H 54.5 H 51.3 H (21.7-31.4) SECONDS Sodium (136-145) mEq/L Potassium (3.5-5.1) mEq/L Chloride (98-107) mEq/L Carbon Dioxide (21-32) mEq/L Anion Gap (5-15) BUN (7-18) mg/dL Creatinine (0.55-1.02) mg/dL Est Cr Clr Drug Dosing mL/min Estimated GFR (MDRD) (>60) mL/min BUN/Creatinine Ratio (14-18) Glucose (70-99) mg/dL Calcium (8.5-10.1) mg/dL Total Bilirubin (0.2-1.0) mg/dL AST (15-37) U/L ALT (14-59) U/L Alkaline Phosphatase (46-116) U/L Total Protein (6.4-8.2) g/dl Albumin (3.4-5.0) g/dl Globulin gm/dL Albumin/Globulin Ratio (1-2) 01/25/21 01/25/21 01/25/21 Range/Units 05:10 05:10 05:10 WBC 6.18 (3.98-10.04) K/mm3 RBC 3.84 L (3.98-5.22) M/mm3 Hgb 11.5 (11.2-15.7) gm/dl Hct 36.4 (34.1-44.9) % MCV 94.8 (79.4-94.8) fl MCH 29.9 (25.6-32.2) pg MCHC 31.6 L (32.2-35.5) g/dl RDW Std Deviation 48.4 H (36.4-46.3) fL Plt Count 302 (182-369) K/mm3 MPV 10.2 (9.4-12.3) fl APTT 28.9 D (21.7-31.4) SECONDS Sodium 141 (136-145) mEq/L Potassium 4.1 (3.5-5.1) mEq/L Chloride 104 (98-107) mEq/L Carbon Dioxide 30 (21-32) mEq/L Anion Gap 11.1 (5-15) BUN 25 H (7-18) mg/dL Creatinine 0.7 (0.55-1.02) mg/dL Est Cr Clr Drug Dosing 92.67 mL/min Estimated GFR (MDRD) > 60 (>60) mL/min BUN/Creatinine Ratio 35.7 H (14-18) Glucose 127 H (70-99) mg/dL Calcium 8.4 L (8.5-10.1) mg/dL Total Bilirubin 0.3 (0.2-1.0) mg/dL AST 27 (15-37) U/L ALT 14 (14-59) U/L Alkaline Phosphatase 74 (46-116) U/L Total Protein 7.4 (6.4-8.2) g/dl Albumin 2.3 L (3.4-5.0) g/dl Globulin 5.1 gm/dL Albumin/Globulin Ratio 0.5 L (1-2) Result Diagrams: 01/25/21 05:10 01/25/21 05:10 Sepsis Event Note - Evaluation Sepsis Screening Result: No Definite Risk - Focused Exam Vital Signs: Vital Signs Temp Pulse Resp BP Pulse Ox Pulse Ox 01/25/21 10:13 87 L 01/25/21 09:00 88 L 01/25/21 08:40 36.9 C 62 22 H 105/84 80 L 01/25/21 06:49 82 L 01/25/21 03:51 35.9 C L 62 12 105/84 81 L 01/25/21 00:20 84 L - Problem List Review Problem List Initiated/Reviewed/Updated: Yes - My Orders Last 24 Hours: My Active Orders 01/25/21 07:56 Vaccine to be Administered/Admin Charge [RC] ASDIRECTED 01/25/21 08:01 Code Status [Resuscitation Status] Routine 01/25/21 10:13 Bedrest Bedside Commode [RC] ASDIRECTED Cardiac Monitoring [RC] CONTINUOUS Intake and Output [RC] QSHIFT Oxygen Therapy [RC] PRN Pulse Oximetry [RC] CONTINUOUS VTE/DVT Education [RC] PER UNIT ROUTINE Vital Signs [RC] Q4H Albuterol/Ipratropium [DuoNeb 3.0-0.5 MG/3 ML] 3 ml NEB Q4H PRN Morphine 2 mg IVPUSH Q4H PRN Promethazine [Phenergan] 12.5 mg Sodium Chloride 0.9% [Normal Saline] 50 ml IV Q6H oxyCODONE 5 mg PO Q6H PRN 01/25/21 10:14 RT Aerosol Therapy [RC] ASDIRECTED RT Aerosol Therapy [RC] ASDIRECTED RESPIRATORY CULT [MREF] Stat 01/25/21 11:00 Apixaban [Eliquis] 5 mg PO BID Baricitinib [Olumiant] 4 mg PO DAILY Levothyroxine 200 mcg PO DAILY 01/25/21 Dinner Consistent Carbohydrate Diet [DIET] 01/25/21 23:00 cefTRIAXone [Rocephin] 2 gm Sodium Chloride 0.9% [Normal Saline] 100 ml IV Q24H 01/26/21 05:00 C-REACTIVE PROTEIN [CHEM] DAILY CBC WITH AUTO DIFF [HEME] DAILY 01/26/21 09:00 dexAMETHasone 20 mg IVPUSH DAILY 01/26/21 10:15 COMPREHENSIVE METABOLIC PN,CMP [CHEM] DAILY 01/27/21 05:00 C-REACTIVE PROTEIN [CHEM] DAILY CBC WITH AUTO DIFF [HEME] DAILY 01/27/21 10:15 COMPREHENSIVE METABOLIC PN,CMP [CHEM] DAILY 01/28/21 05:00 C-REACTIVE PROTEIN [CHEM] DAILY CBC WITH AUTO DIFF [HEME] DAILY 01/28/21 10:15 COMPREHENSIVE METABOLIC PN,CMP [CHEM] DAILY 01/29/21 05:00 C-REACTIVE PROTEIN [CHEM] DAILY CBC WITH AUTO DIFF [HEME] DAILY 01/29/21 10:15 COMPREHENSIVE METABOLIC PN,CMP [CHEM] DAILY 01/30/21 05:00 C-REACTIVE PROTEIN [CHEM] DAILY 01/31/21 09:00 dexAMETHasone 6 mg PO DAILY - Plan Plan:: Assessment and plan: Acute hypoxic respiratory failure Patient possibly has a history of asthma. But it is most likely due to pneumonia Pulse ox Oxygen therapy, high flow/BiPAP as needed to keep oxygen saturation greater than 90% Covid pneumonia positive Covid test and Symptoms started on January 08, 2021. Has not vaccinated against Covid 19 Chest x-ray showed bilateral pneumonia D-dimer 1.75, CRP 10.1 Considering oxygen desaturation and need of BiPAP, I would like to start her on dexamethasone 20 mg IV daily x 5 days followed by 6 mg p.o. daily. Eliquis 5 mg twice daily remdesivir was initiated in the ER, I would like to continue remdesivir baricitinib 4 mg oral daily Ceftriaxone and azithromycin Inhalers Prone position CBC, CMP and CRP daily Morbid obeisty, BMI 43.0 Consult dietitian Lifestyle modification Follow with PCP DVT prophylaxis: [place] CODE STATUS: Full Disposition: Patient likely needs to stay in the hospital for more than 4 days due to the nature of the Covid pneumonia with severe oxygen desaturation Prognosis: Poor
[2021-01-25] MEDS: Albuterol/Ipratropium 3.0-0.5 MG/3 ML Neb Soln NEB PRN ×2 (14:56→21:29)
[2021-01-25] MEDS ORDERED: Sodium Chloride 0.9% 100 ML ONE (15:19)
[2021-01-25] MEDS: REMDESIVIR 100 MG in Sodium Chloride 0.9% 100 ML IV SCH (15:35)
[2021-01-25] MEDS: Azithromycin 500 MG in Sodium Chloride 0.9% 250 ML IV SCH (20:57)
[2021-01-25] MEDS ORDERED: cefTRIAXone 1 GM in Sodium Chloride 0.9% 100 ML IV SCH (21:00)
[2021-01-25] MEDS: oxyCODONE 5 MG Tab PO PRN (21:26)
[2021-01-25] MEDS: cefTRIAXone 2 GM in Sodium Chloride 0.9% 100 ML IV SCH (22:34)
[2021-01-26] MEDS: Albuterol/Ipratropium 3.0-0.5 MG/3 ML Neb Soln NEB PRN ×4 (04:49→20:31)
[2021-01-26] MEDS ORDERED: Dexamethasone 10 MG/ML SDV IV SCH (09:00)
[2021-01-26] MEDS: Dexamethasone 4 MG/ML 5 ML MDV IVPUSH SCH (09:10)
[2021-01-26] MEDS: Apixaban 5 MG Tab PO SCH ×2 (09:13→20:22)
[2021-01-26] MEDS: guaiFENesin 600 MG Tab.ER PO SCH ×2 (09:21→20:22)
--- NOTE | 2021-01-26 16:08 | PCM.PN ---
- General Info Date of Service: 01/26/21 Admission Dx/Problem (Free Text): Admission Diagnosis/Problem Admission Diagnosis/Problem Hypoxia Subjective Update: Patient is a 55-year-old female with a past medical history of morbid obesity who presented to the ER due to shortness of breath and worsening oxygen saturation. Patient started to have Covid 19 symptoms including mild headache, fatigue and shortness of breath on January 08, 2021 and was subsequently diagnos ed with Covid infection. Patient seems to feel better. Denies fever, chills, nausea, vomiting, or diarrhea. But she is on 60L with FiO2 95% CRP 11.3 - Review of Systems Systems Review Comment:: General: Reports: Malaise, Fatigue HEENT: Reports: No Symptoms Pulmonary: Reports: Shortness of Breath Cardiovascular: Reports: No Symptoms Gastrointestinal: Reports: No Symptoms Genitourinary: Reports: No Symptoms Musculoskeletal: Reports: No Symptoms Skin: Reports: No Symptoms Psychiatric: Reports: No Symptoms Neurological: Reports: No Symptoms Hematologic/Lymphatic: Reports: No Symptoms Immunologic: Reports: No Symptoms - Patient Data Vitals - Most Recent: Last Vital Signs Temp 37.1 C 01/26/21 12:18 Pulse 72 01/26/21 08:56 Resp 22 H 01/26/21 12:24 BP 134/96 H 01/26/21 12:18 Pulse Ox 94 L 01/26/21 15:51 Weight - Most Recent: 129.365 kg I&O - Last 24 Hours: Intake & Output 01/26/21 01/26/21 01/26/21 06:59 14:59 22:59 Intake Total 700 175 Output Total 1050 Balance -350 175 Lab Results Last 24 Hours: Laboratory Results - last 24 hr 01/26/21 01/26/21 01/26/21 Range/Units 07:08 07:08 07:08 WBC 7.03 (3.98-10.04) K/mm3 RBC 3.96 L (3.98-5.22) M/mm3 Hgb 11.9 (11.2-15.7) gm/dl Hct 37.4 (34.1-44.9) % MCV 94.4 (79.4-94.8) fl MCH 30.1 (25.6-32.2) pg MCHC 31.8 L (32.2-35.5) g/dl RDW Std Deviation 48.5 H (36.4-46.3) fL Plt Count 277 (182-369) K/mm3 MPV 9.8 (9.4-12.3) fl Neut % (Auto) 73.4 H (34.0-71.1) % Lymph % (Auto) 18.5 L (19.3-51.7) % [place] % (Auto) 6.7 (4.7-12.5) % Eos % (Auto) 0 L (0.7-5.8) Baso % (Auto) 0.1 (0.1-1.2) % Neut # (Auto) 5.16 (1.56-6.13) K/mm3 Lymph # (Auto) 1.30 (1.18-3.74) K/mm3 [place] # (Auto) 0.47 H (0.24-0.36) K/mm3 Eos # (Auto) 0.00 L (0.04-0.36) K/mm3 Baso # (Auto) 0.01 (0.01-0.08) K/mm3 Manual Slide Review Abnormal smear Sodium 136 (136-145) mEq/L Potassium 4.2 (3.5-5.1) mEq/L Chloride 101 (98-107) mEq/L Carbon Dioxide 30 (21-32) mEq/L Anion Gap 9.2 (5-15) BUN 23 H (7-18) mg/dL Creatinine 0.8 (0.55-1.02) mg/dL Est Cr Clr Drug Dosing 81.08 mL/min Estimated GFR (MDRD) > 60 (>60) mL/min BUN/Creatinine Ratio 28.8 H (14-18) Glucose 140 H (70-99) mg/dL Calcium 8.7 (8.5-10.1) mg/dL Total Bilirubin 0.3 (0.2-1.0) mg/dL AST 23 (15-37) U/L ALT 25 (14-59) U/L Alkaline Phosphatase 74 (46-116) U/L C-Reactive Protein 11.3 H* (<1.0) mg/dL Total Protein 7.7 (6.4-8.2) g/dl Albumin 2.5 L (3.4-5.0) g/dl Globulin 5.2 gm/dL Albumin/Globulin Ratio 0.5 L (1-2) Med Orders - Current: Current Medications Albuterol/Ipratropium (Albuterol/Ipratropium 3.0-0.5 Mg/3 Ml Neb Soln) 3 ml NEB Q4H PRN PRN Reason: Shortness Of Breath/wheezing Last Admin: 01/26/21 15:49 Dose: 3 ml Documented by: Apixaban (Apixaban 5 Mg Tab) 5 mg PO BID [facility] Last Admin: 01/26/21 09:13 Dose: 5 mg Documented by: Baricitinib (Baricitinib 2 Mg Tab) 4 mg PO DAILY [facility] Stop: 02/07/21 09:01 Last Admin: 01/26/21 09:12 Dose: 4 mg Documented by: Dexamethasone (Dexamethasone 4 Mg/Ml 5 Ml Mdv) 20 mg IVPUSH DAILY [facility] Stop: 01/30/21 09:01 Last Admin: 01/26/21 09:10 Dose: 20 mg Documented by: Dexamethasone (Dexamethasone 4 Mg Tab) 6 mg PO DAILY [facility] Guaifenesin (Guaifenesin 600 Mg Tab.Er) 600 mg PO BID [facility] Last Admin: 01/26/21 09:21 Dose: 600 mg Documented by: Remdesivir 100 mg/ Sodium (Chloride) 100 mls @ 100 mls/hr IV Q24H [facility] Stop: 01/27/21 15:59 Last Admin: 01/25/21 15:35 Dose: 100 mls/hr Documented by: Azithromycin 500 mg/ Sodium (Chloride) 250 mls @ 250 mls/hr IV Q24H [facility] Last Admin: 01/25/21 20:57 Dose: 250 mls/hr Documented by: Ceftriaxone Sodium 2 gm/ (Sodium Chloride) 100 mls @ 200 mls/hr IV Q24H [facility] Last Admin: 01/25/21 22:34 Dose: 200 mls/hr Documented by: Promethazine HCl 12.5 mg/ (Sodium Chloride) 50.5 mls @ 100 mls/hr IV Q6H PRN PRN Reason: Nausea/Vomiting Levothyroxine Sodium (Levothyroxine 200 Mcg Tab) 200 mcg PO DAILY [facility] Last Admin: 01/26/21 09:13 Dose: 200 mcg Documented by: Oxycodone HCl (Oxycodone 5 Mg Tab) 5 mg PO Q6H PRN PRN Reason: Pain (moderate 4-6) Last Admin: 01/25/21 21:26 Dose: 5 mg Documented by: Discontinued Medications Acetaminophen (Acetaminophen 325 Mg Tab) 975 mg PO NOW ONE Stop: 01/24/21 11:55 Last Admin: 01/24/21 12:28 Dose: 975 mg Documented by: Ceftriaxone Sodium (Ceftriaxone 1 Gm Advvial) Confirm Administered Dose 1 gm IV .STK-MED ONE Stop: 01/24/21 21:52 Last Admin: 01/24/21 23:40 Dose: 1 gm Documented by: Dexamethasone (Dexamethasone 4 Mg/Ml 5 Ml Mdv) 6 mg IV Q24H [facility] Last Admin: 01/25/21 09:13 Dose: 6 mg Documented by: Dexamethasone (Dexamethasone 4 Mg/Ml 5 Ml Mdv) 14 mg IVPUSH ONETIME ONE Stop: 01/25/21 11:01 Last Admin: 01/25/21 11:11 Dose: 14 mg Documented by: Heparin Sodium (Porcine) (Heparin Sodium 5,000 Units/Ml Vial) 5,000 units IVPUSH .BOLUS ONE Stop: 01/23/21 17:44 Last Admin: 01/23/21 18:04 Dose: 5,000 units Documented by: Heparin Sodium (Porcine) (Heparin Sodium 5,000 Units/Ml Vial) 2,500 units IVPUSH .BOLUS ONE; Protocol Stop: 01/24/21 07:27 Last Admin: 01/24/21 07:34 Dose: 2,500 units Documented by: Heparin Sodium (Porcine) (Heparin Sodium 5,000 Units/Ml Vial) 1,500 units IVPUSH .BOLUS ONE Stop: 01/24/21 12:21 Last Admin: 01/24/21 12:27 Dose: 1,500 units Documented by: Heparin Sodium (Porcine) (Heparin Sodium 5,000 Units/Ml Vial) 2,500 units IVPUSH .BOLUS ONE Stop: 01/25/21 06:23 Last Admin: 01/25/21 06:39 Dose: 2,500 units Documented by: Remdesivir 200 mg/ Sodium (Chloride) 250 mls @ 250 mls/hr IV ONETIME ONE Stop: 01/23/21 14:36 Last Admin: 01/23/21 14:56 Dose: 250 mls/hr Documented by: Heparin Sodium/Dextrose (Heparin 25,000 Units In D5w 500 Ml) 25,000 units in 500 mls @ 26 mls/hr IV TITRATE [facility]; Protocol Last Titration: 01/25/21 06:42 Dose: 2,591 units/hr, 51.82 mls/hr Documented by: Remdesivir 100 mg/ Sodium (Chloride) 100 mls @ 100 mls/hr IV Q24H [facility] Stop: 01/27/21 08:44 Last Admin: 01/24/21 08:10 Dose: Not Given Documented by: Ceftriaxone Sodium 1 gm/ (Sodium Chloride) 100 mls @ 200 mls/hr IV Q24H [facility] Last Admin: 01/24/21 23:40 Dose: 200 mls/hr Documented by: Sodium Chloride (Normal Saline) Confirm Administered Dose 100 mls @ as directed .ROUTE .STK-MED ONE Stop: 01/24/21 21:53 Last Admin: 01/24/21 22:07 Dose: Not Given Documented by: Ceftriaxone Sodium 1 gm/ (Sodium Chloride) 100 mls @ 200 mls/hr IV Q24H [facility] Sodium Chloride (Normal Saline) Confirm Administered Dose 100 mls @ as directed .ROUTE .STK-MED ONE Stop: 01/25/21 15:20 Last Admin: 01/25/21 15:43 Dose: Not Given Documented by: Influenza Virus Vaccine (Flu Vacc [id number] 36mos Up/Pf 60 Mcg/0.5 Ml Syringe) 60 mcg IM .ONCE ONE Stop: 01/25/21 08:01 Morphine Sulfate (Morphine 2 Mg/Ml Syringe) 2 mg IVPUSH Q4H PRN PRN Reason: Pain (severe 7-10) Stop: 01/26/21 10:14 - Exam Physical Findings Comments:: General: Alert, Oriented, Cooperative, Mild Distress (Due to shortness of br eath) HEENT: Conjunctiva Clear, EOMI, Pupils Equal, Pupils Reactive Neck: Supple, +2 Carotid Pulse wo Bruit, Full Range of Motion. No: JVD Lungs: Decreased Breath Sounds, Crackles Cardiovascular: Regular Rate, Regular Rhythm GI/Abdominal Exam: Normal Bowel Sounds, Soft, Non-Tender, No Organomegaly, No Distention Extremities: Normal Inspection, Normal Range of Motion, Non-Tender, No Pedal Edema Skin: Warm, Dry, Intact Neurological: Cranial Nerves Intact, Reflexes Equal Bilateral, Strength Equal Bilateral Neuro Extensive - Mental Status: Alert, Oriented x3 Psychiatric: Alert, Normal Affect, Normal Mood - Patient Data Lab Results Last 24 hrs: Laboratory Results - last 24 hr 01/26/21 01/26/21 01/26/21 Range/Units 07:08 07:08 07:08 WBC 7.03 (3.98-10.04) K/mm3 RBC 3.96 L (3.98-5.22) M/mm3 Hgb 11.9 (11.2-15.7) gm/dl Hct 37.4 (34.1-44.9) % MCV 94.4 (79.4-94.8) fl MCH 30.1 (25.6-32.2) pg MCHC 31.8 L (32.2-35.5) g/dl RDW Std Deviation 48.5 H (36.4-46.3) fL Plt Count 277 (182-369) K/mm3 MPV 9.8 (9.4-12.3) fl Neut % (Auto) 73.4 H (34.0-71.1) % Lymph % (Auto) 18.5 L (19.3-51.7) % [place] % (Auto) 6.7 (4.7-12.5) % Eos % (Auto) 0 L (0.7-5.8) Baso % (Auto) 0.1 (0.1-1.2) % Neut # (Auto) 5.16 (1.56-6.13) K/mm3 Lymph # (Auto) 1.30 (1.18-3.74) K/mm3 [place] # (Auto) 0.47 H (0.24-0.36) K/mm3 Eos # (Auto) 0.00 L (0.04-0.36) K/mm3 Baso # (Auto) 0.01 (0.01-0.08) K/mm3 Manual Slide Review Abnormal smear Sodium 136 (136-145) mEq/L Potassium 4.2 (3.5-5.1) mEq/L Chloride 101 (98-107) mEq/L Carbon Dioxide 30 (21-32) mEq/L Anion Gap 9.2 (5-15) BUN 23 H (7-18) mg/dL Creatinine 0.8 (0.55-1.02) mg/dL Est Cr Clr Drug Dosing 81.08 mL/min Estimated GFR (MDRD) > 60 (>60) mL/min BUN/Creatinine Ratio 28.8 H (14-18) Glucose 140 H (70-99) mg/dL Calcium 8.7 (8.5-10.1) mg/dL Total Bilirubin 0.3 (0.2-1.0) mg/dL AST 23 (15-37) U/L ALT 25 (14-59) U/L Alkaline Phosphatase 74 (46-116) U/L C-Reactive Protein 11.3 H* (<1.0) mg/dL Total Protein 7.7 (6.4-8.2) g/dl Albumin 2.5 L (3.4-5.0) g/dl Globulin 5.2 gm/dL Albumin/Globulin Ratio 0.5 L (1-2) Result Diagrams: 01/26/21 07:08 01/26/21 07:08 Sepsis Event Note - Evaluation Sepsis Screening Result: No Definite Risk - Focused Exam Vital Signs: Vital Signs Temp Pulse Pulse Resp BP Pulse Ox Pulse Ox 01/26/21 15:51 94 L 01/26/21 12:24 22 H 91 L 01/26/21 12:18 37.1 C 22 H 134/96 H 01/26/21 08:56 36.3 C 72 20 127/86 96 01/26/21 08:36 88 L 01/26/21 08:00 80 24 H 91 L 01/26/21 04:59 36.7 C 67 20 112/58 L 87 L 01/26/21 04:49 83 L Pulse Ox 01/26/21 15:51 01/26/21 12:24 01/26/21 12:18 01/26/21 08:56 01/26/21 08:36 87 L 01/26/21 08:00 01/26/21 04:59 01/26/21 04:49 - Problem List Review Problem List Initiated/Reviewed/Updated: Yes - My Orders Last 24 Hours: My Active Orders 01/25/21 Dinner Consistent Carbohydrate Diet [DIET] 01/25/21 23:00 cefTRIAXone [Rocephin] 2 gm Sodium Chloride 0.9% [Normal Saline] 100 ml IV Q24H 01/26/21 09:00 dexAMETHasone 20 mg IVPUSH DAILY 01/26/21 09:15 guaiFENesin [Mucinex] 600 mg PO BID 01/27/21 05:00 C-REACTIVE PROTEIN [CHEM] DAILY CBC WITH AUTO DIFF [HEME] DAILY 01/27/21 10:15 COMPREHENSIVE METABOLIC PN,CMP [CHEM] DAILY 01/28/21 05:00 C-REACTIVE PROTEIN [CHEM] DAILY CBC WITH AUTO DIFF [HEME] DAILY 01/28/21 10:15 COMPREHENSIVE METABOLIC PN,CMP [CHEM] DAILY 01/29/21 05:00 C-REACTIVE PROTEIN [CHEM] DAILY CBC WITH AUTO DIFF [HEME] DAILY 01/29/21 10:15 COMPREHENSIVE METABOLIC PN,CMP [CHEM] DAILY 01/30/21 05:00 C-REACTIVE PROTEIN [CHEM] DAILY 01/31/21 09:00 dexAMETHasone 6 mg PO DAILY - Plan Plan:: Assessment and plan: Acute hypoxic respiratory failure Patient possibly has a history of asthma. But it is most likely due to pneumonia Pulse ox Oxygen therapy, high flow/BiPAP as needed to keep oxygen saturation greater than 90% Covid pneumonia positive Covid test and Symptoms started on January 08, 2021. Has not vaccinated against Covid 19 Chest x-ray showed bilateral pneumonia D-dimer 1.75, CRP 10.1->11.3 Considering oxygen desaturation and need of BiPAP, I increased dexamethasone to 20 mg IV daily x 5 days (since 01/25) followed by 6 mg p.o. daily. Eliquis 5 mg twice daily Since Remdesivir was initiated in the ER, I would like to continue remdesivir baricitinib 4 mg oral daily Ceftriaxone and azithromycin Inhalers Prone position CBC, CMP and CRP daily Morbid obeisty, BMI 43.0 Consult dietitian Lifestyle modification Follow with PCP DVT prophylaxis: Eliquis CODE STATUS: Full Disposition: Patient likely needs to stay in the hospital for more than 4 days due to the nature of the Covid pneumonia with severe oxygen desaturation Prognosis: Guarded
[2021-01-26] MEDS: REMDESIVIR 100 MG in Sodium Chloride 0.9% 100 ML IV SCH (16:29)
[2021-01-26] MEDS: Azithromycin 500 MG in Sodium Chloride 0.9% 250 ML IV SCH (20:23)
[2021-01-26] MEDS: cefTRIAXone 2 GM in Sodium Chloride 0.9% 100 ML IV SCH (22:09)
[2021-01-27] MEDS: Albuterol/Ipratropium 3.0-0.5 MG/3 ML Neb Soln NEB PRN ×4 (06:11→19:42)
[2021-01-27] MEDS: Dexamethasone 4 MG/ML 5 ML MDV IVPUSH SCH (08:50)
[2021-01-27] MEDS: Apixaban 5 MG Tab PO SCH ×2 (08:50→21:11)
[2021-01-27] MEDS: guaiFENesin 600 MG Tab.ER PO SCH ×2 (09:03→21:11)
[2021-01-27] MEDS: Saccharomyces Boulardii (Probiotic) 250 MG Cap PO SCH (12:34)
--- NOTE | 2021-01-27 15:34 | PCM.PN ---
- General Info Date of Service: 01/27/21 Admission Dx/Problem (Free Text): Admission Diagnosis/Problem Admission Diagnosis/Problem Hypoxia Subjective Update: Patient is a 55-year-old female with a past medical history of morbid obesity who presented to the ER due to shortness of breath and worsening oxygen saturation. Patient started to have Covid 19 symptoms including mild headache, fatigue and shortness of breath on January 08, 2021 and was subsequently diagnos ed with Covid infection. Patient states that she is feeling better. Denies fever, chills, nausea, vomiting, or diarrhea. She asks probiotics which was ordered. But she is on 60L with FiO2 90% CRP 11.3->6.7 - Review of Systems Systems Review Comment:: General: Reports: Malaise, Fatigue HEENT: Reports: No Symptoms Pulmonary: Reports: Shortness of Breath Cardiovascular: Reports: No Symptoms Gastrointestinal: Reports: No Symptoms Genitourinary: Reports: No Symptoms Musculoskeletal: Reports: No Symptoms Skin: Reports: No Symptoms Psychiatric: Reports: No Symptoms Neurological: Reports: No Symptoms Hematologic/Lymphatic: Reports: No Symptoms Immunologic: Reports: No Symptoms - Patient Data Vitals - Most Recent: Last Vital Signs Temp 36.6 C 01/27/21 12:33 Pulse 52 L 01/27/21 12:33 Resp 18 01/27/21 12:33 BP 106/58 L 01/27/21 12:33 Pulse Ox 91 L 01/27/21 14:36 Weight - Most Recent: 128.911 kg I&O - Last 24 Hours: Intake & Output 01/27/21 01/27/21 01/27/21 06:59 14:59 22:59 Intake Total 1150 360 Output Total 1300 Balance -150 360 Lab Results Last 24 Hours: Laboratory Results - last 24 hr 01/27/21 01/27/21 01/27/21 Range/Units 06:47 06:47 06:47 WBC 8.33 (3.98-10.04) K/mm3 RBC 4.24 (3.98-5.22) M/mm3 Hgb 12.5 (11.2-15.7) gm/dl Hct 39.6 (34.1-44.9) % MCV 93.4 (79.4-94.8) fl MCH 29.5 (25.6-32.2) pg MCHC 31.6 L (32.2-35.5) g/dl RDW Std Deviation 47.9 H (36.4-46.3) fL Plt Count 285 (182-369) K/mm3 MPV 9.8 (9.4-12.3) fl Neut % (Auto) 75.6 H (34.0-71.1) % Lymph % (Auto) 17.4 L (19.3-51.7) % [place] % (Auto) 5.6 (4.7-12.5) % Eos % (Auto) 0 L (0.7-5.8) Baso % (Auto) 0.1 (0.1-1.2) % Neut # (Auto) 6.29 H (1.56-6.13) K/mm3 Lymph # (Auto) 1.45 (1.18-3.74) K/mm3 [place] # (Auto) 0.47 H (0.24-0.36) K/mm3 Eos # (Auto) 0.00 L (0.04-0.36) K/mm3 Baso # (Auto) 0.01 (0.01-0.08) K/mm3 Sodium 134 L (136-145) mEq/L Potassium 4.3 (3.5-5.1) mEq/L Chloride 100 (98-107) mEq/L Carbon Dioxide 26 (21-32) mEq/L Anion Gap 12.3 (5-15) BUN 29 H (7-18) mg/dL Creatinine 0.8 (0.55-1.02) mg/dL Est Cr Clr Drug Dosing 81.08 mL/min Estimated GFR (MDRD) > 60 (>60) mL/min BUN/Creatinine Ratio 36.3 H (14-18) Glucose 137 H (70-99) mg/dL Calcium 8.7 (8.5-10.1) mg/dL Total Bilirubin 0.3 (0.2-1.0) mg/dL AST 18 (15-37) U/L ALT 20 (14-59) U/L Alkaline Phosphatase 72 (46-116) U/L C-Reactive Protein 6.7 H* (<1.0) mg/dL Total Protein 7.8 (6.4-8.2) g/dl Albumin 2.6 L (3.4-5.0) g/dl Globulin 5.2 gm/dL Albumin/Globulin Ratio 0.5 L (1-2) Med Orders - Current: Current Medications Albuterol/Ipratropium (Albuterol/Ipratropium 3.0-0.5 Mg/3 Ml Neb Soln) 3 ml NEB Q4H PRN PRN Reason: Shortness Of Breath/wheezing Last Admin: 01/27/21 14:38 Dose: 3 ml Documented by: Apixaban (Apixaban 5 Mg Tab) 5 mg PO BID [facility] Last Admin: 01/27/21 08:50 Dose: 5 mg Documented by: Baricitinib (Baricitinib 2 Mg Tab) 4 mg PO DAILY [facility] Stop: 02/07/21 09:01 Last Admin: 01/27/21 08:49 Dose: 4 mg Documented by: Dexamethasone (Dexamethasone 4 Mg/Ml 5 Ml Mdv) 20 mg IVPUSH DAILY [facility] Stop: 01/30/21 09:01 Last Admin: 01/27/21 08:50 Dose: 20 mg Documented by: Dexamethasone (Dexamethasone 4 Mg Tab) 6 mg PO DAILY [facility] Guaifenesin (Guaifenesin 600 Mg Tab.Er) 600 mg PO BID [facility] Last Admin: 01/27/21 09:03 Dose: 600 mg Documented by: Remdesivir 100 mg/ Sodium (Chloride) 100 mls @ 100 mls/hr IV Q24H [facility] Stop: 01/27/21 15:59 Last Admin: 01/26/21 16:29 Dose: 100 mls/hr Documented by: Promethazine HCl 12.5 mg/ (Sodium Chloride) 50.5 mls @ 100 mls/hr IV Q6H PRN PRN Reason: Nausea/Vomiting Levothyroxine Sodium (Levothyroxine 200 Mcg Tab) 200 mcg PO DAILY [facility] Last Admin: 01/27/21 08:50 Dose: 200 mcg Documented by: Oxycodone HCl (Oxycodone 5 Mg Tab) 5 mg PO Q6H PRN PRN Reason: Pain (moderate 4-6) Last Admin: 01/25/21 21:26 Dose: 5 mg Documented by: Saccharomyces Boulardii (Saccharomyces Boulardii (Probiotic) 250 Mg Cap) 250 mg PO DAILY [facility] Last Admin: 01/27/21 12:34 Dose: 250 mg Documented by: Discontinued Medications Acetaminophen (Acetaminophen 325 Mg Tab) 975 mg PO NOW ONE Stop: 01/24/21 11:55 Last Admin: 01/24/21 12:28 Dose: 975 mg Documented by: Ceftriaxone Sodium (Ceftriaxone 1 Gm Advvial) Confirm Administered Dose 1 gm IV .STK-MED ONE Stop: 01/24/21 21:52 Last Admin: 01/24/21 23:40 Dose: 1 gm Documented by: Dexamethasone (Dexamethasone 4 Mg/Ml 5 Ml Mdv) 6 mg IV Q24H [facility] Last Admin: 01/25/21 09:13 Dose: 6 mg Documented by: Dexamethasone (Dexamethasone 4 Mg/Ml 5 Ml Mdv) 14 mg IVPUSH ONETIME ONE Stop: 01/25/21 11:01 Last Admin: 01/25/21 11:11 Dose: 14 mg Documented by: Heparin Sodium (Porcine) (Heparin Sodium 5,000 Units/Ml Vial) 5,000 units IVPUSH .BOLUS ONE Stop: 01/23/21 17:44 Last Admin: 01/23/21 18:04 Dose: 5,000 units Documented by: Heparin Sodium (Porcine) (Heparin Sodium 5,000 Units/Ml Vial) 2,500 units IVPU SH .BOLUS ONE; Protocol Stop: 01/24/21 07:27 Last Admin: 01/24/21 07:34 Dose: 2,500 units Documented by: Heparin Sodium (Porcine) (Heparin Sodium 5,000 Units/Ml Vial) 1,500 units IVPUSH .BOLUS ONE Stop: 01/24/21 12:21 Last Admin: 01/24/21 12:27 Dose: 1,500 units Documented by: Heparin Sodium (Porcine) (Heparin Sodium 5,000 Units/Ml Vial) 2,500 units IVPUSH .BOLUS ONE Stop: 01/25/21 06:23 Last Admin: 01/25/21 06:39 Dose: 2,500 units Documented by: Remdesivir 200 mg/ Sodium (Chloride) 250 mls @ 250 mls/hr IV ONETIME ONE Stop: 01/23/21 14:36 Last Admin: 01/23/21 14:56 Dose: 250 mls/hr Documented by: Heparin Sodium/Dextrose (Heparin 25,000 Units In D5w 500 Ml) 25,000 units in 500 mls @ 26 mls/hr IV TITRATE [facility]; Protocol Last Titration: 01/25/21 06:42 Dose: 2,591 units/hr, 51.82 mls/hr Documented by: Remdesivir 100 mg/ Sodium (Chloride) 100 mls @ 100 mls/hr IV Q24H [facility] Stop: 01/27/21 08:44 Last Admin: 01/24/21 08:10 Dose: Not Given Documented by: Azithromycin 500 mg/ Sodium (Chloride) 250 mls @ 250 mls/hr IV Q24H [facility] Last Admin: 01/26/21 20:23 Dose: 250 mls/hr Documented by: Ceftriaxone Sodium 1 gm/ (Sodium Chloride) 100 mls @ 200 mls/hr IV Q24H [facility] Last Admin: 01/24/21 23:40 Dose: 200 mls/hr Documented by: Sodium Chloride (Normal Saline) Confirm Administered Dose 100 mls @ as directed .ROUTE .STK-MED ONE Stop: 01/24/21 21:53 Last Admin: 01/24/21 22:07 Dose: Not Given Documented by: Ceftriaxone Sodium 1 gm/ (Sodium Chloride) 100 mls @ 200 mls/hr IV Q24H [facility] Ceftriaxone Sodium 2 gm/ (Sodium Chloride) 100 mls @ 200 mls/hr IV Q24H [facility] Last Admin: 01/26/21 22:09 Dose: 200 mls/hr Documented by: Sodium Chloride (Normal Saline) Confirm Administered Dose 100 mls @ as directed .ROUTE .STK-MED ONE Stop: 01/25/21 15:20 Last Admin: 01/25/21 15:43 Dose: Not Given Documented by: Influenza Virus Vaccine (Flu Vacc [id number] 36mos Up/Pf 60 Mcg/0.5 Ml Syringe) 60 mcg IM .ONCE ONE Stop: 01/25/21 08:01 Morphine Sulfate (Morphine 2 Mg/Ml Syringe) 2 mg IVPUSH Q4H PRN PRN Reason: Pain (severe 7-10) Stop: 01/26/21 10:14 - Exam Physical Findings Comments:: General: Alert, Oriented, Cooperative, Mild Distress (Due to shortness of breath) HEENT: Conjunctiva Clear, EOMI, Pupils Equal, Pupils Reactive Neck: Supple, +2 Carotid Pulse wo Bruit, Full Range of Motion. No: JVD Lungs: Decreased Breath Sounds, Crackles Cardiovascular: Regular Rate, Regular Rhythm GI/Abdominal Exam: Normal Bowel Sounds, Soft, Non-Tender, No Organomegaly, No Distention Extremities: Normal Inspection, Normal Range of Motion, Non-Tender, No Pedal Edema Skin: Warm, Dry, Intact Neurological: Cranial Nerves Intact, Reflexes Equal Bilateral, Strength Equal Bilateral Neuro Extensive - Mental Status: Alert, Oriented x3 Psychiatric: Alert, Normal Affect, Normal Mood - Patient Data Lab Results Last 24 hrs: Laboratory Results - last 24 hr 01/27/21 01/27/21 01/27/21 Range/Units 06:47 06:47 06:47 WBC 8.33 (3.98-10.04) K/mm3 RBC 4.24 (3.98-5.22) M/mm3 Hgb 12.5 (11.2-15.7) gm/dl Hct 39.6 (34.1-44.9) % MCV 93.4 (79.4-94.8) fl MCH 29.5 (25.6-32.2) pg MCHC 31.6 L (32.2-35.5) g/dl RDW Std Deviation 47.9 H (36.4-46.3) fL Plt Count 285 (182-369) K/mm3 MPV 9.8 (9.4-12.3) fl Neut % (Auto) 75.6 H (34.0-71.1) % Lymph % (Auto) 17.4 L (19.3-51.7) % [place] % (Auto) 5.6 (4.7-12.5) % Eos % (Auto) 0 L (0.7-5.8) Baso % (Auto) 0.1 (0.1-1.2) % Neut # (Auto) 6.29 H (1.56-6.13) K/mm3 Lymph # (Auto) 1.45 (1.18-3.74) K/mm3 [place] # (Auto) 0.47 H (0.24-0.36) K/mm3 Eos # (Auto) 0.00 L (0.04-0.36) K/mm3 Baso # (Auto) 0.01 (0.01-0.08) K/mm3 Sodium 134 L (136-145) mEq/L Potassium 4.3 (3.5-5.1) mEq/L Chloride 100 (98-107) mEq/L Carbon Dioxide 26 (21-32) mEq/L Anion Gap 12.3 (5-15) BUN 29 H (7-18) mg/dL Creatinine 0.8 (0.55-1.02) mg/dL Est Cr Clr Drug Dosing 81.08 mL/min Estimated GFR (MDRD) > 60 (>60) mL/min BUN/Creatinine Ratio 36.3 H (14-18) Glucose 137 H (70-99) mg/dL Calcium 8.7 (8.5-10.1) mg/dL Total Bilirubin 0.3 (0.2-1.0) mg/dL AST 18 (15-37) U/L ALT 20 (14-59) U/L Alkaline Phosphatase 72 (46-116) U/L C-Reactive Protein 6.7 H* (<1.0) mg/dL Total Protein 7.8 (6.4-8.2) g/dl Albumin 2.6 L (3.4-5.0) g/dl Globulin 5.2 gm/dL Albumin/Globulin Ratio 0.5 L (1-2) Result Diagrams: 01/27/21 06:47 01/27/21 06:47 Sepsis Event Note - Evaluation Sepsis Screening Result: No Definite Risk - Focused Exam Vital Signs: Vital Signs Temp Pulse Resp BP Pulse Ox Pulse Ox 01/27/21 14:36 91 L 01/27/21 12:33 36.6 C 52 L 18 106/58 L 92 L 01/27/21 11:43 90 L 01/27/21 08:26 95 01/27/21 07:54 36.3 C 51 L 20 132/72 97 01/27/21 06:11 90 L 01/27/21 04:05 36.7 C 60 18 105/58 L 87 L - Problem List Review Problem List Initiated/Reviewed/Updated: Yes - My Orders Last 24 Hours: My Active Orders 01/27/21 10:15 Saccharomyces Boulardii [Florastor] 250 mg PO DAILY 01/28/21 05:00 C-REACTIVE PROTEIN [CHEM] DAILY CBC WITH AUTO DIFF [HEME] DAILY 01/28/21 10:15 COMPREHENSIVE METABOLIC PN,CMP [CHEM] DAILY 01/29/21 05:00 C-REACTIVE PROTEIN [CHEM] DAILY CBC WITH AUTO DIFF [HEME] DAILY 01/29/21 10:15 COMPREHENSIVE METABOLIC PN,CMP [CHEM] DAILY 01/30/21 05:00 C-REACTIVE PROTEIN [CHEM] DAILY 01/31/21 09:00 dexAMETHasone 6 mg PO DAILY - Plan Plan:: Assessment and plan: Acute hypoxic respiratory failure Patient possibly has a history of asthma. But it is most likely due to pneumonia Pulse ox Oxygen therapy, high flow/BiPAP as needed to keep oxygen saturation greater than 90% Covid pneumonia positive Covid test and Symptoms started on January 08, 2021. Has not vaccinated against Covid 19 Chest x-ray showed bilateral pneumonia D-dimer 1.75, CRP 10.1->11.3->6.7 Continue dexamethasone 20 mg IV daily x 5 days (since 01/25) followed by 6 mg p.o. daily. Eliquis 5 mg twice daily Since Remdesivir was initiated in the ER, I would like to continue remdesivir baricitinib 4 mg oral daily (since 01/25) No evidence of bacterial infection (afebrile, WBC WNL even though she is on steroid), I will discontinue ceftriaxone and azithromycin today Inhalers Prone position CBC, CMP and CRP daily Morbid obeisty, BMI 43.0 Consult dietitian Lifestyle modification Follow with PCP DVT prophylaxis: Eliquis CODE STATUS: Full Disposition: Patient likely needs to stay in the hospital for more than 4 days due to the nature of the Covid pneumonia with severe oxygen desaturation Prognosis: Guarded
[2021-01-27] MEDS: REMDESIVIR 100 MG in Sodium Chloride 0.9% 100 ML IV SCH (17:30)
[2021-01-28] MEDS: Albuterol/Ipratropium 3.0-0.5 MG/3 ML Neb Soln NEB PRN ×4 (04:47→20:09)
[2021-01-28] MEDS: oxyCODONE 5 MG Tab PO PRN (04:50)
[2021-01-28] MEDS: Apixaban 5 MG Tab PO SCH ×2 (10:02→20:20)
[2021-01-28] MEDS: Saccharomyces Boulardii (Probiotic) 250 MG Cap PO SCH (10:02)
[2021-01-28] MEDS: guaiFENesin 600 MG Tab.ER PO SCH ×2 (10:02→20:20)
[2021-01-28] MEDS: Dexamethasone 4 MG/ML 5 ML MDV IVPUSH SCH (10:08)
--- NOTE | 2021-01-28 17:19 | PCM.PN ---
- General Info Date of Service: 01/28/21 Admission Dx/Problem (Free Text): Admission Diagnosis/Problem Admission Diagnosis/Problem Hypoxia Subjective Update: Patient is a 55-year-old female with a past medical history of morbid obesity who presented to the ER due to shortness of breath and worsening oxygen saturation. Patient started to have Covid 19 symptoms including mild headache, fatigue and shortness of breath on January 08, 2021 and was subsequently diagnos ed with Covid infection. She continues to improve. CRP 11.3->6.7-->3.7 - Review of Systems General: Reports: Fatigue HEENT: Reports: No Symptoms Pulmonary: Reports: Shortness of Breath Cardiovascular: Reports: No Symptoms Gastrointestinal: Reports: No Symptoms Musculoskeletal: Reports: No Symptoms Skin: Reports: No Symptoms - Patient Data Vitals - Most Recent: Last Vital Signs Temp 98.2 F 01/28/21 15:15 Pulse 64 01/28/21 15:15 Resp 20 01/28/21 15:15 BP 125/92 H 01/28/21 15:15 Pulse Ox 96 01/28/21 15:15 Weight - Most Recent: 283 lb 11.2 oz I&O - Last 24 Hours: Intake & Output 01/28/21 01/28/21 01/28/21 06:59 14:59 22:59 Intake Total 433 477 5689 Output Total 1850 925 Balance -1050 100 195 Lab Results Last 24 Hours: Laboratory Results - last 24 hr 01/28/21 01/28/21 01/28/21 Range/Units 06:12 06:12 06:12 WBC 8.64 (3.98-10.04) K/mm3 RBC 4.14 (3.98-5.22) M/mm3 Hgb 12.3 (11.2-15.7) gm/dl Hct 38.5 (34.1-44.9) % MCV 93.0 (79.4-94.8) fl MCH 29.7 (25.6-32.2) pg MCHC 31.9 L (32.2-35.5) g/dl RDW Std Deviation 47.4 H (36.4-46.3) fL Plt Count 266 (182-369) K/mm3 MPV 9.9 (9.4-12.3) fl Neut % (Auto) 78.3 H (34.0-71.1) % Lymph % (Auto) 14.1 L (19.3-51.7) % [place] % (Auto) 6.5 (4.7-12.5) % Eos % (Auto) 0 L (0.7-5.8) Baso % (Auto) 0.1 (0.1-1.2) % Neut # (Auto) 6.76 H (1.56-6.13) K/mm3 Lymph # (Auto) 1.22 (1.18-3.74) K/mm3 [place] # (Auto) 0.56 H (0.24-0.36) K/mm3 Eos # (Auto) 0.00 L (0.04-0.36) K/mm3 Baso # (Auto) 0.01 (0.01-0.08) K/mm3 Manual Slide Review Normal smear Sodium 137 (136-145) mEq/L Potassium 4.3 (3.5-5.1) mEq/L Chloride 102 (98-107) mEq/L Carbon Dioxide 26 (21-32) mEq/L Anion Gap 13.3 (5-15) BUN 26 H (7-18) mg/dL Creatinine 0.8 (0.55-1.02) mg/dL Est Cr Clr Drug Dosing 81.08 mL/min Estimated GFR (MDRD) > 60 (>60) mL/min BUN/Creatinine Ratio 32.5 H (14-18) Glucose 138 H (70-99) mg/dL Calcium 8.5 (8.5-10.1) mg/dL Total Bilirubin 0.3 (0.2-1.0) mg/dL AST 16 (15-37) U/L ALT 26 (14-59) U/L Alkaline Phosphatase 67 (46-116) U/L C-Reactive Protein 3.7 H* (<1.0) mg/dL Total Protein 7.5 (6.4-8.2) g/dl Albumin 2.5 L (3.4-5.0) g/dl Globulin 5.0 gm/dL Albumin/Globulin Ratio 0.5 L (1-2) Med Orders - Current: Current Medications Albuterol/Ipratropium (Albuterol/Ipratropium 3.0-0.5 Mg/3 Ml Neb Soln) 3 ml NEB Q4H PRN PRN Reason: Shortness Of Breath/wheezing Last Admin: 01/28/21 14:44 Dose: 3 ml Documented by: Apixaban (Apixaban 5 Mg Tab) 5 mg PO BID [facility] Last Admin: 01/28/21 10:02 Dose: 5 mg Documented by: Baricitinib (Baricitinib 2 Mg Tab) 4 mg PO DAILY [facility] Stop: 02/07/21 09:01 Last Admin: 01/28/21 10:02 Dose: 4 mg Documented by: Dexamethasone (Dexamethasone 4 Mg/Ml 5 Ml Mdv) 20 mg IVPUSH DAILY [facility] Stop: 01/30/21 09:01 Last Admin: 01/28/21 10:08 Dose: 20 mg Documented by: Dexamethasone (Dexamethasone 4 Mg Tab) 6 mg PO DAILY [facility] Guaifenesin (Guaifenesin 600 Mg Tab.Er) 600 mg PO BID [facility] Last Admin: 01/28/21 10:02 Dose: 600 mg Documented by: Promethazine HCl 12.5 mg/ (Sodium Chloride) 50.5 mls @ 100 mls/hr IV Q6H PRN PRN Reason: Nausea/Vomiting Levothyroxine Sodium (Levothyroxine 200 Mcg Tab) 200 mcg PO DAILY [facility] Last Admin: 01/28/21 10:02 Dose: 200 mcg Documented by: Oxycodone HCl (Oxycodone 5 Mg Tab) 5 mg PO Q6H PRN PRN Reason: Pain (moderate 4-6) Last Admin: 01/28/21 04:50 Dose: 5 mg Documented by: Saccharomyces Boulardii (Saccharomyces Boulardii (Probiotic) 250 Mg Cap) 250 mg PO DAILY [facility] Last Admin: 01/28/21 10:02 Dose: 250 mg Documented by: Discontinued Medications Acetaminophen (Acetaminophen 325 Mg Tab) 975 mg PO NOW ONE Stop: 01/24/21 11:55 Last Admin: 01/24/21 12:28 Dose: 975 mg Documented by: Ceftriaxone Sodium (Ceftriaxone 1 Gm Advvial) Confirm Administered Dose 1 gm IV .STK-MED ONE Stop: 01/24/21 21:52 Last Admin: 01/24/21 23:40 Dose: 1 gm Documented by: Dexamethasone (Dexamethasone 4 Mg/Ml 5 Ml Mdv) 6 mg IV Q24H [facility] Last Admin: 01/25/21 09:13 Dose: 6 mg Documented by: Dexamethasone (Dexamethasone 4 Mg/Ml 5 Ml Mdv) 14 mg IVPUSH ONETIME ONE Stop: 01/25/21 11:01 Last Admin: 01/25/21 11:11 Dose: 14 mg Documented by: Heparin Sodium (Porcine) (Heparin Sodium 5,000 Units/Ml Vial) 5,000 units IVPUSH .BOLUS ONE Stop: 01/23/21 17:44 Last Admin: 01/23/21 18:04 Dose: 5,000 units Documented by: Heparin Sodium (Porcine) (Heparin Sodium 5,000 Units/Ml Vial) 2,500 units IVPUSH .BOLUS ONE; Protocol Stop: 01/24/21 07:27 Last Admin: 01/24/21 07:34 Dose: 2,500 units Documented by: Heparin Sodium (Porcine) (Heparin Sodium 5,000 Units/Ml Vial) 1,500 units IVPUSH .BOLUS ONE Stop: 01/24/21 12:21 Last Admin: 01/24/21 12:27 Dose: 1,500 units Documented by: Heparin Sodium (Porcine) (Heparin Sodium 5,000 Units/Ml Vial) 2,500 units IVPUSH .BOLUS ONE Stop: 01/25/21 06:23 Last Admin: 01/25/21 06:39 Dose: 2,500 units Documented by: Remdesivir 200 mg/ Sodium (Chloride) 250 mls @ 250 mls/hr IV ONETIME ONE Stop: 01/23/21 14:36 Last Admin: 01/23/21 14:56 Dose: 250 mls/hr Documented by: Heparin Sodium/Dextrose (Heparin 25,000 Units In D5w 500 Ml) 25,000 units in 500 mls @ 26 mls/hr IV TITRATE DONATO; Protocol Last Titration: 01/25/21 06:42 Dose: 2,591 units/hr, 51.82 mls/hr Documented by: Remdesivir 100 mg/ Sodium (Chloride) 100 mls @ 100 mls/hr IV Q24H [facility] Stop: 01/27/21 08:44 Last Admin: 01/24/21 08:10 Dose: Not Given Documented by: Remdesivir 100 mg/ Sodium (Chloride) 100 mls @ 100 mls/hr IV Q24H [facility] Stop: 01/27/21 15:59 Last Admin: 01/27/21 17:30 Dose: 100 mls/hr Documented by: Azithromycin 500 mg/ Sodium (Chloride) 250 mls @ 250 mls/hr IV Q24H [facility] Last Admin: 01/26/21 20:23 Dose: 250 mls/hr Documented by: Ceftriaxone Sodium 1 gm/ (Sodium Chloride) 100 mls @ 200 mls/hr IV Q24H [facility] Last Admin: 01/24/21 23:40 Dose: 200 mls/hr Documented by: Sodium Chloride (Normal Saline) Confirm Administered Dose 100 mls @ as directed .ROUTE .STK-MED ONE Stop: 01/24/21 21:53 Last Admin: 01/24/21 22:07 Dose: Not Given Documented by: Ceftriaxone Sodium 1 gm/ (Sodium Chloride) 100 mls @ 200 mls/hr IV Q24H [facility] Ceftriaxone Sodium 2 gm/ (Sodium Chloride) 100 mls @ 200 mls/hr IV Q24H [facility] Last Admin: 01/26/21 22:09 Dose: 200 mls/hr Documented by: Sodium Chloride (Normal Saline) Confirm Administered Dose 100 mls @ as directed .ROUTE .STK-MED ONE Stop: 01/25/21 15:20 Last Admin: 01/25/21 15:43 Dose: Not Given Documented by: Influenza Virus Vaccine (Flu Vacc [id number] 36mos Up/Pf 60 Mcg/0.5 Ml Syringe) 60 mcg IM .ONCE ONE Stop: 01/25/21 08:01 Morphine Sulfate (Morphine 2 Mg/Ml Syringe) 2 mg IVPUSH Q4H PRN PRN Reason: Pain (severe 7-10) Stop: 01/26/21 10:14 - Exam Quality Assessment: Supplemental Oxygen General: Alert, Oriented HEENT: Pupils Equal, Mucous Membr. Moist/[place] Neck: Supple Lungs: Crackles (Bibasilar). No: Normal Respiratory Effort (Increased respiratory rate) Cardiovascular: Regular Rate, Regular Rhythm GI/Abdominal Exam: Normal Bowel Sounds, Soft, Non-Tender, No Distention Extremities: Normal Inspection, Non-Tender, No Pedal Edema, Normal Capillary Refill - Patient Data Lab Results Last 24 hrs: Laboratory Results - last 24 hr 01/28/21 01/28/21 01/28/21 Range/Units 06:12 06:12 06:12 WBC 8.64 (3.98-10.04) K/mm3 RBC 4.14 (3.98-5.22) M/mm3 Hgb 12.3 (11.2-15.7) gm/dl Hct 38.5 (34.1-44.9) % MCV 93.0 (79.4-94.8) fl MCH 29.7 (25.6-32.2) pg MCHC 31.9 L (32.2-35.5) g/dl RDW Std Deviation 47.4 H (36.4-46.3) fL Plt Count 266 (182-369) K/mm3 MPV 9.9 (9.4-12.3) fl Neut % (Auto) 78.3 H (34.0-71.1) % Lymph % (Auto) 14.1 L (19.3-51.7) % [place] % (Auto) 6.5 (4.7-12.5) % Eos % (Auto) 0 L (0.7-5.8) Baso % (Auto) 0.1 (0.1-1.2) % Neut # (Auto) 6.76 H (1.56-6.13) K/mm3 Lymph # (Auto) 1.22 (1.18-3.74) K/mm3 [place] # (Auto) 0.56 H (0.24-0.36) K/mm3 Eos # (Auto) 0.00 L (0.04-0.36) K/mm3 Baso # (Auto) 0.01 (0.01-0.08) K/mm3 Manual Slide Review Normal smear Sodium 137 (136-145) mEq/L Potassium 4.3 (3.5-5.1) mEq/L Chloride 102 (98-107) mEq/L Carbon Dioxide 26 (21-32) mEq/L Anion Gap 13.3 (5-15) BUN 26 H (7-18) mg/dL Creatinine 0.8 (0.55-1.02) mg/dL Est Cr Clr Drug Dosing 81.08 mL/min Estimated GFR (MDRD) > 60 (>60) mL/min BUN/Creatinine Ratio 32.5 H (14-18) Glucose 138 H (70-99) mg/dL Calcium 8.5 (8.5-10.1) mg/dL Total Bilirubin 0.3 (0.2-1.0) mg/dL AST 16 (15-37) U/L ALT 26 (14-59) U/L Alkaline Phosphatase 67 (46-116) U/L C-Reactive Protein 3.7 H* (<1.0) mg/dL Total Protein 7.5 (6.4-8.2) g/dl Albumin 2.5 L (3.4-5.0) g/dl Globulin 5.0 gm/dL Albumin/Globulin Ratio 0.5 L (1-2) Result Diagrams: 01/28/21 06:12 01/28/21 06:12 Sepsis Event Note - Evaluation Sepsis Screening Result: No Definite Risk - Focused Exam Vital Signs: Vital Signs Temp Pulse Resp BP Pulse Ox Pulse Ox 01/28/21 15:15 98.2 F 64 20 125/92 H 96 01/28/21 15:00 93 L 01/28/21 14:45 96 01/28/21 13:03 98 01/28/21 12:08 98.1 F 75 16 97/69 89 L 01/28/21 09:30 93 L 01/28/21 09:00 93 L 01/28/21 07:50 97.0 F 49 L 16 124/95 H 97 - Problem List & Annotations (1) Respiratory failure with hypoxia SNOMED Code(s): 87704698947419992 Code(s): J96.91 - RESPIRATORY FAILURE, UNSPECIFIED WITH HYPOXIA Status: Acute Current Visit: Yes (2) Pneumonia due to COVID-19 virus SNOMED Code(s): 079079722848340432 Code(s): U07.1 - COVID-19; J12.82 - PNEUMONIA DUE TO CORONAVIRUS DISEASE 2019 Status: Acute Current Visit: Yes - Problem List Review Problem List Initiated/Reviewed/Updated: Yes - Plan Plan:: Assessment and plan: Acute hypoxic respiratory failure Patient possibly has a history of asthma. But it is most likely due to pneumonia Pulse ox Oxygen therapy, high flow/BiPAP as needed to keep oxygen saturation greater than 90% Small amount of improvement today on oxygenation. Able to wean her down to high flow nasal cannula at 60 L and 70% FiO2. Covid pneumonia positive Covid test and Symptoms started on January 08, 2021. Has not vaccinated against Covid 19 Chest x-ray showed bilateral pneumonia D-dimer 1.75, CRP 10.1->11.3->6.7 Continue dexamethasone 20 mg IV daily x 5 days (since 01/25) followed by 6 mg p.o. daily. Eliquis 5 mg twice daily Since Remdesivir was initiated in the ER, I would like to continue remdesivir baricitinib 4 mg oral daily (since 01/25) No evidence of bacterial infection (afebrile, WBC WNL even though she is on steroid), I will discontinue ceftriaxone and azithromycin today Inhalers Prone position CBC, CMP and CRP daily Morbid obeisty, BMI 41.0 Consult dietitian Lifestyle modification Follow with PCP DVT prophylaxis: [place] CODE STATUS: Full Disposition: Patient likely needs to stay in the hospital for more than 4 days due to the nature of the Covid pneumonia with severe oxygen desaturation Prognosis: Guarded
[2021-01-28] MEDS: Temazepam 7.5 MG Cap PO PRN (20:20)
[2021-01-29] MEDS: Albuterol/Ipratropium 3.0-0.5 MG/3 ML Neb Soln NEB PRN ×4 (06:05→20:57)
[2021-01-29] MEDS: Apixaban 5 MG Tab PO SCH ×2 (08:58→20:14)
[2021-01-29] MEDS: guaiFENesin 600 MG Tab.ER PO SCH ×2 (08:58→20:14)
[2021-01-29] MEDS: Saccharomyces Boulardii (Probiotic) 250 MG Cap PO SCH (08:58)
[2021-01-29] MEDS: Dexamethasone 4 MG/ML 5 ML MDV IVPUSH SCH (09:00)
--- NOTE | 2021-01-29 15:57 | PCM.PN ---
- General Info Date of Service: 01/29/21 Admission Dx/Problem (Free Text): Admission Diagnosis/Problem Admission Diagnosis/Problem Hypoxia Subjective Update: Estee continues to improve. She has been weaned down to high flow nasal cannula at 40 L and 50% FiO2. Appetite is improved and she has less shortness of breath and cough. Functional Status: Reports: Pain Controlled - Review of Systems General: Reports: No Symptoms HEENT: Reports: No Symptoms Pulmonary: Reports: Shortness of Breath, Cough Cardiovascular: Reports: No Symptoms Gastrointestinal: Reports: No Symptoms Musculoskeletal: Reports: No Symptoms - Patient Data Vitals - Most Recent: Last Vital Signs Temp 97.2 F 01/29/21 12:05 Pulse 58 L 01/29/21 12:05 Resp 20 01/29/21 12:05 BP 112/96 H 01/29/21 12:05 Pulse Ox 94 L 01/29/21 15:05 Weight - Most Recent: 283 lb 6.4 oz I&O - Last 24 Hours: Intake & Output 01/29/21 01/29/21 01/29/21 06:59 14:59 22:59 Intake Total 175 Output Total 2200 Balance -2200 175 Lab Results Last 24 Hours: Laboratory Results - last 24 hr 01/29/21 01/29/21 01/29/21 Range/Units 05:31 05:31 05:31 WBC 8.14 (3.98-10.04) K/mm3 RBC 4.15 (3.98-5.22) M/mm3 Hgb 12.3 (11.2-15.7) gm/dl Hct 38.7 (34.1-44.9) % MCV 93.3 (79.4-94.8) fl MCH 29.6 (25.6-32.2) pg MCHC 31.8 L (32.2-35.5) g/dl RDW Std Deviation 47.5 H (36.4-46.3) fL Plt Count 243 (182-369) K/mm3 MPV 10.2 (9.4-12.3) fl Neut % (Auto) 77.3 H (34.0-71.1) % Lymph % (Auto) 15.0 L (19.3-51.7) % [place] % (Auto) 6.6 (4.7-12.5) % Eos % (Auto) 0 L (0.7-5.8) Baso % (Auto) 0.1 (0.1-1.2) % Neut # (Auto) 6.29 H (1.56-6.13) K/mm3 Lymph # (Auto) 1.22 (1.18-3.74) K/mm3 [place] # (Auto) 0.54 H (0.24-0.36) K/mm3 Eos # (Auto) 0.00 L (0.04-0.36) K/mm3 Baso # (Auto) 0.01 (0.01-0.08) K/mm3 D-Dimer, Quantitative (0.19-0.50) mg/L Sodium 135 L (136-145) mEq/L Potassium 4.5 (3.5-5.1) mEq/L Chloride 101 (98-107) mEq/L Carbon Dioxide 29 (21-32) mEq/L Anion Gap 9.5 (5-15) BUN 28 H (7-18) mg/dL Creatinine 0.8 (0.55-1.02) mg/dL Est Cr Clr Drug Dosing 81.08 mL/min Estimated GFR (MDRD) > 60 (>60) mL/min BUN/Creatinine Ratio 35.0 H (14-18) Glucose 155 H (70-99) mg/dL Calcium 8.4 L (8.5-10.1) mg/dL Magnesium (1.8-2.4) mg/dL Total Bilirubin 0.3 (0.2-1.0) mg/dL AST 15 (15-37) U/L ALT 31 (14-59) U/L Alkaline Phosphatase 62 (46-116) U/L C-Reactive Protein 2.1 H* (<1.0) mg/dL Total Protein 7.0 (6.4-8.2) g/dl Albumin 2.4 L (3.4-5.0) g/dl Globulin 4.6 gm/dL Albumin/Globulin Ratio 0.5 L (1-2) 01/29/21 01/29/21 Range/Units 05:31 05:31 WBC (3.98-10.04) K/mm3 RBC (3.98-5.22) M/mm3 Hgb (11.2-15.7) gm/dl Hct (34.1-44.9) % MCV (79.4-94.8) fl MCH (25.6-32.2) pg MCHC (32.2-35.5) g/dl RDW Std Deviation (36.4-46.3) fL Plt Count (182-369) K/mm3 MPV (9.4-12.3) fl Neut % (Auto) (34.0-71.1) % Lymph % (Auto) (19.3-51.7) % [place] % (Auto) (4.7-12.5) % Eos % (Auto) (0.7-5.8) Baso % (Auto) (0.1-1.2) % Neut # (Auto) (1.56-6.13) K/mm3 Lymph # (Auto) (1.18-3.74) K/mm3 [place] # (Auto) (0.24-0.36) K/mm3 Eos # (Auto) (0.04-0.36) K/mm3 Baso # (Auto) (0.01-0.08) K/mm3 D-Dimer, Quantitative 5.09 H (0.19-0.50) mg/L Sodium (136-145) mEq/L Potassium (3.5-5.1) mEq/L Chloride (98-107) mEq/L Carbon Dioxide (21-32) mEq/L Anion Gap (5-15) BUN (7-18) mg/dL Creatinine (0.55-1.02) mg/dL Est Cr Clr Drug Dosing mL/min Estimated GFR (MDRD) (>60) mL/min BUN/Creatinine Ratio (14-18) Glucose (70-99) mg/dL Calcium (8.5-10.1) mg/dL Magnesium 2.2 (1.8-2.4) mg/dL Total Bilirubin (0.2-1.0) mg/dL AST (15-37) U/L ALT (14-59) U/L Alkaline Phosphatase (46-116) U/L C-Reactive Protein (<1.0) mg/dL Total Protein (6.4-8.2) g/dl Albumin (3.4-5.0) g/dl Globulin gm/dL Albumin/Globulin Ratio (1-2) Med Orders - Current: Current Medications Albuterol/Ipratropium (Albuterol/Ipratropium 3.0-0.5 Mg/3 Ml Neb Soln) 3 ml NEB Q4H PRN PRN Reason: Shortness Of Breath/wheezing Last Admin: 01/29/21 15:05 Dose: 3 ml Documented by: Apixaban (Apixaban 5 Mg Tab) 5 mg PO BID [facility] Last Admin: 01/29/21 08:58 Dose: 5 mg Documented by: Baricitinib (Baricitinib 2 Mg Tab) 4 mg PO DAILY [facility] Stop: 02/07/21 09:01 Last Admin: 01/29/21 08:58 Dose: 4 mg Documented by: Dexamethasone (Dexamethasone 4 Mg Tab) 6 mg PO DAILY [facility] Dexamethasone (Dexamethasone 10 Mg/Ml Sdv) 6 mg IVPUSH ONETIME ONE Stop: 01/30/21 09:01 Guaifenesin (Guaifenesin 600 Mg Tab.Er) 600 mg PO BID [facility] Last Admin: 01/29/21 08:58 Dose: 600 mg Documented by: Promethazine HCl 12.5 mg/ (Sodium Chloride) 50.5 mls @ 100 mls/hr IV Q6H PRN PRN Reason: Nausea/Vomiting Levothyroxine Sodium (Levothyroxine 200 Mcg Tab) 200 mcg PO 0600 [facility] Oxycodone HCl (Oxycodone 5 Mg Tab) 5 mg PO Q6H PRN PRN Reason: Pain (moderate 4-6) Last Admin: 01/28/21 04:50 Dose: 5 mg Documented by: Saccharomyces Boulardii (Saccharomyces Boulardii (Probiotic) 250 Mg Cap) 250 mg PO DAILY [facility] Last Admin: 01/29/21 08:58 Dose: 250 mg Documented by: Temazepam (Temazepam 7.5 Mg Cap) 7.5 mg PO BEDTIME PRN PRN Reason: Sleep Last Admin: 01/28/21 20:20 Dose: 7.5 mg Documented by: Discontinued Medications Acetaminophen (Acetaminophen 325 Mg Tab) 975 mg PO NOW ONE Stop: 01/24/21 11:55 Last Admin: 01/24/21 12:28 Dose: 975 mg Documented by: Ceftriaxone Sodium (Ceftriaxone 1 Gm Advvial) Confirm Administered Dose 1 gm IV .STK-MED ONE Stop: 01/24/21 21:52 Last Admin: 01/24/21 23:40 Dose: 1 gm Documented by: Dexamethasone (Dexamethasone 4 Mg/Ml 5 Ml Mdv) 6 mg IV Q24H [facility] Last Admin: 01/25/21 09:13 Dose: 6 mg Documented by: Dexamethasone (Dexamethasone 4 Mg/Ml 5 Ml Mdv) 20 mg IVPUSH DAILY [facility] Stop: 01/30/21 09:01 Last Admin: 01/29/21 09:00 Dose: 20 mg Documented by: Dexamethasone (Dexamethasone 4 Mg/Ml 5 Ml Mdv) 14 mg IVPUSH ONETIME ONE Stop: 01/25/21 11:01 Last Admin: 01/25/21 11:11 Dose: 14 mg Documented by: Heparin Sodium (Porcine) (Heparin Sodium 5,000 Units/Ml Vial) 5,000 units IVPUSH .BOLUS ONE Stop: 01/23/21 17:44 Last Admin: 01/23/21 18:04 Dose: 5,000 units Documented by: Heparin Sodium (Porcine) (Heparin Sodium 5,000 Units/Ml Vial) 2,500 units IVPUSH .BOLUS ONE; Protocol Stop: 01/24/21 07:27 Last Admin: 01/24/21 07:34 Dose: 2,500 units Documented by: Heparin Sodium (Porcine) (Heparin Sodium 5,000 Units/Ml Vial) 1,500 units IVPUSH .BOLUS ONE Stop: 01/24/21 12:21 Last Admin: 01/24/21 12:27 Dose: 1,500 units Documented by: Heparin Sodium (Porcine) (Heparin Sodium 5,000 Units/Ml Vial) 2,500 units IV PUSH .BOLUS ONE Stop: 01/25/21 06:23 Last Admin: 01/25/21 06:39 Dose: 2,500 units Documented by: Remdesivir 200 mg/ Sodium (Chloride) 250 mls @ 250 mls/hr IV ONETIME ONE Stop: 01/23/21 14:36 Last Admin: 01/23/21 14:56 Dose: 250 mls/hr Documented by: Heparin Sodium/Dextrose (Heparin 25,000 Units In D5w 500 Ml) 25,000 units in 500 mls @ 26 mls/hr IV TITRATE DONATO; Protocol Last Titration: 01/25/21 06:42 Dose: 2,591 units/hr, 51.82 mls/hr Documented by: Remdesivir 100 mg/ Sodium (Chloride) 100 mls @ 100 mls/hr IV Q24H [facility] Stop: 01/27/21 08:44 Last Admin: 01/24/21 08:10 Dose: Not Given Documented by: Remdesivir 100 mg/ Sodium (Chloride) 100 mls @ 100 mls/hr IV Q24H [facility] Stop: 01/27/21 15:59 Last Admin: 01/27/21 17:30 Dose: 100 mls/hr Documented by: Azithromycin 500 mg/ Sodium (Chloride) 250 mls @ 250 mls/hr IV Q24H [facility] Last Admin: 01/26/21 20:23 Dose: 250 mls/hr Documented by: Ceftriaxone Sodium 1 gm/ (Sodium Chloride) 100 mls @ 200 mls/hr IV Q24H [facility] Last Admin: 01/24/21 23:40 Dose: 200 mls/hr Documented by: Sodium Chloride (Normal Saline) Confirm Administered Dose 100 mls @ as directed .ROUTE .STK-MED ONE Stop: 01/24/21 21:53 Last Admin: 01/24/21 22:07 Dose: Not Given Documented by: Ceftriaxone Sodium 1 gm/ (Sodium Chloride) 100 mls @ 200 mls/hr IV Q24H [facility] Ceftriaxone Sodium 2 gm/ (Sodium Chloride) 100 mls @ 200 mls/hr IV Q24H [facility] Last Admin: 01/26/21 22:09 Dose: 200 mls/hr Documented by: Sodium Chloride (Normal Saline) Confirm Administered Dose 100 mls @ as directed .ROUTE .STK-MED ONE Stop: 01/25/21 15:20 Last Admin: 01/25/21 15:43 Dose: Not Given Documented by: Influenza Virus Vaccine (Flu Vacc [id number] 36mos Up/Pf 60 Mcg/0.5 Ml Syringe) 60 mcg IM .ONCE ONE Stop: 01/25/21 08:01 Levothyroxine Sodium (Levothyroxine 200 Mcg Tab) 200 mcg PO DAILY [facility] Last Admin: 01/29/21 08:58 Dose: 200 mcg Documented by: Morphine Sulfate (Morphine 2 Mg/Ml Syringe) 2 mg IVPUSH Q4H PRN PRN Reason: Pain (severe 7-10) Stop: 01/26/21 10:14 - Exam Quality Assessment: Supplemental Oxygen General: Alert, Oriented HEENT: Pupils Equal, Mucous Membr. Moist/[place] Neck: Supple Lungs: Normal Respiratory Effort, Crackles (Minimal bibasilar rales) Cardiovascular: Regular Rate, Regular Rhythm GI/Abdominal Exam: Normal Bowel Sounds, Soft, Non-Tender, No Distention Extremities: Normal Inspection, Normal Range of Motion, Non-Tender, No Pedal Edema, Normal Capillary Refill Skin: Warm, Dry, Intact Neurological: No New Focal Deficit Psy/Mental Status: Alert, Normal Affect, Normal Mood - Patient Data Lab Results Last 24 hrs: Laboratory Results - last 24 hr 01/29/21 01/29/21 01/29/21 Range/Units 05:31 05:31 05:31 WBC 8.14 (3.98-10.04) K/mm3 RBC 4.15 (3.98-5.22) M/mm3 Hgb 12.3 (11.2-15.7) gm/dl Hct 38.7 (34.1-44.9) % MCV 93.3 (79.4-94.8) fl MCH 29.6 (25.6-32.2) pg MCHC 31.8 L (32.2-35.5) g/dl RDW Std Deviation 47.5 H (36.4-46.3) fL Plt Count 243 (182-369) K/mm3 MPV 10.2 (9.4-12.3) fl Neut % (Auto) 77.3 H (34.0-71.1) % Lymph % (Auto) 15.0 L (19.3-51.7) % [place] % (Auto) 6.6 (4.7-12.5) % Eos % (Auto) 0 L (0.7-5.8) Baso % (Auto) 0.1 (0.1-1.2) % Neut # (Auto) 6.29 H (1.56-6.13) K/mm3 Lymph # (Auto) 1.22 (1.18-3.74) K/mm3 [place] # (Auto) 0.54 H (0.24-0.36) K/mm3 Eos # (Auto) 0.00 L (0.04-0.36) K/mm3 Baso # (Auto) 0.01 (0.01-0.08) K/mm3 D-Dimer, Quantitative (0.19-0.50) mg/L Sodium 135 L (136-145) mEq/L Potassium 4.5 (3.5-5.1) mEq/L Chloride 101 (98-107) mEq/L Carbon Dioxide 29 (21-32) mEq/L Anion Gap 9.5 (5-15) BUN 28 H (7-18) mg/dL Creatinine 0.8 (0.55-1.02) mg/dL Est Cr Clr Drug Dosing 81.08 mL/min Estimated GFR (MDRD) > 60 (>60) mL/min BUN/Creatinine Ratio 35.0 H (14-18) Glucose 155 H (70-99) mg/dL Calcium 8.4 L (8.5-10.1) mg/dL Magnesium (1.8-2.4) mg/dL Total Bilirubin 0.3 (0.2-1.0) mg/dL AST 15 (15-37) U/L ALT 31 (14-59) U/L Alkaline Phosphatase 62 (46-116) U/L C-Reactive Protein 2.1 H* (<1.0) mg/dL Total Protein 7.0 (6.4-8.2) g/dl Albumin 2.4 L (3.4-5.0) g/dl Globulin 4.6 gm/dL Albumin/Globulin Ratio 0.5 L (1-2) 01/29/21 01/29/21 Range/Units 05:31 05:31 WBC (3.98-10.04) K/mm3 RBC (3.98-5.22) M/mm3 Hgb (11.2-15.7) gm/dl Hct (34.1-44.9) % MCV (79.4-94.8) fl MCH (25.6-32.2) pg MCHC (32.2-35.5) g/dl RDW Std Deviation (36.4-46.3) fL Plt Count (182-369) K/mm3 MPV (9.4-12.3) fl Neut % (Auto) (34.0-71.1) % Lymph % (Auto) (19.3-51.7) % [place] % (Auto) (4.7-12.5) % Eos % (Auto) (0.7-5.8) Baso % (Auto) (0.1-1.2) % Neut # (Auto) (1.56-6.13) K/mm3 Lymph # (Auto) (1.18-3.74) K/mm3 [place] # (Auto) (0.24-0.36) K/mm3 Eos # (Auto) (0.04-0.36) K/mm3 Baso # (Auto) (0.01-0.08) K/mm3 D-Dimer, Quantitative 5.09 H (0.19-0.50) mg/L Sodium (136-145) mEq/L Potassium (3.5-5.1) mEq/L Chloride (98-107) mEq/L Carbon Dioxide (21-32) mEq/L Anion Gap (5-15) BUN (7-18) mg/dL Creatinine (0.55-1.02) mg/dL Est Cr Clr Drug Dosing mL/min Estimated GFR (MDRD) (>60) mL/min BUN/Creatinine Ratio (14-18) Glucose (70-99) mg/dL Calcium (8.5-10.1) mg/dL Magnesium 2.2 (1.8-2.4) mg/dL Total Bilirubin (0.2-1.0) mg/dL AST (15-37) U/L ALT (14-59) U/L Alkaline Phosphatase (46-116) U/L C-Reactive Protein (<1.0) mg/dL Total Protein (6.4-8.2) g/dl Albumin (3.4-5.0) g/dl Globulin gm/dL Albumin/Globulin Ratio (1-2) Result Diagrams: 01/29/21 05:31 01/29/21 05:31 Sepsis Event Note - Evaluation Sepsis Screening Result: No Definite Risk - Focused Exam Vital Signs: Vital Signs Temp Pulse Resp BP Pulse Ox Pulse Ox 01/29/21 15:05 94 L 01/29/21 12:05 97.2 F 58 L 20 112/96 H 97 01/29/21 09:52 93 L 01/29/21 09:49 95 01/29/21 09:43 93 L 01/29/21 08:56 97.7 F 64 133/93 H 93 L 01/29/21 06:09 97.3 F 52 L 22 H 112/51 L 94 L 01/29/21 06:05 95 - Problem List & Annotations (1) Respiratory failure with hypoxia SNOMED Code(s): 96712551336406614 Code(s): J96.91 - RESPIRATORY FAILURE, UNSPECIFIED WITH HYPOXIA Status: Acute Current Visit: Yes (2) Pneumonia due to COVID-19 virus SNOMED Code(s): 272269661642482601 Code(s): U07.1 - COVID-19; J12.82 - PNEUMONIA DUE TO CORONAVIRUS DISEASE 2019 Status: Acute Current Visit: Yes - Problem List Review Problem List Initiated/Reviewed/Updated: Yes - My Orders Last 24 Hours: My Active Orders 01/28/21 19:30 Activity as Tolerated [RC] .Routine 01/28/21 19:33 Temazepam [Restoril] 7.5 mg PO BEDTIME PRN - Plan Plan:: Assessment and plan: Acute hypoxic respiratory failure Patient possibly has a history of asthma. But it is most likely due to pneumonia Continuous pulse ox Oxygen therapy, high flow/BiPAP as needed to keep oxygen saturation greater than 90% Continued improvement today on oxygenation. Able to wean her down to high flow nasal cannula at 40 L and 50% FiO2. Covid pneumonia positive Covid test and Symptoms started on January 08, 2021. Has not vaccinated against Covid 19 Chest x-ray showed bilateral pneumonia D-dimer increased to five, CRP 10.1->11.3->6.7-->2.1 Continue dexamethasone 20 mg IV daily x 5 days (since 01/25) followed by 6 mg p.o. daily. Eliquis 5 mg twice daily Complete 5 days of remdesivir baricitinib 4 mg oral daily (since 01/25) No evidence of bacterial infection (afebrile, WBC WNL even though she is on steroid), ceftriaxone and azithromycin discontinued Inhalers Prone position CBC, CMP and CRP daily Morbid obeisty, BMI 42 Consult dietitian Lifestyle modification Follow with PCP DVT prophylaxis: Eliquis CODE STATUS: Full Disposition: Patient likely needs to stay in the hospital for more than 4 days due to the nature of the Covid pneumonia with severe oxygen desaturation Prognosis: Guarded
[2021-01-29] MEDS: Temazepam 7.5 MG Cap PO PRN (20:14)
--- NOTE | 2021-01-30 07:44 | PCM.PN ---
- General Info Date of Service: 01/30/21 Admission Dx/Problem (Free Text): Admission Diagnosis/Problem Admission Diagnosis/Problem Hypoxia Subjective Update: Patient is a 55-year-old lady who was admitted to acute hospitalization on January 25, 2021 due to continuation of her COVID-19 symptoms and hypoxia. The patient has been slow to recover. She is requiring high-dose oxygen. The patient says that she feels better today. Her breathing has improved somewhat. The patient has been tolerating her diet. She has denied any new pain. Functional Status: Reports: Pain Controlled, Tolerating Diet. Denies: New Symptoms - Review of Systems General: Reports: No Symptoms HEENT: Reports: No Symptoms Pulmonary: Reports: Shortness of Breath, Cough (Coughing during exam) Cardiovascular: Reports: No Symptoms Gastrointestinal: Reports: No Symptoms Genitourinary: Reports: No Symptoms Musculoskeletal: Reports: No Symptoms Skin: Reports: No Symptoms Neurological: Reports: No Symptoms Psychiatric: Reports: No Symptoms - Patient Data Vitals - Most Recent: Last Vital Signs Temp 36.2 C 01/30/21 03:43 Pulse 59 L 01/30/21 03:43 Resp 22 H 01/30/21 03:43 BP 122/63 01/30/21 03:43 Pulse Ox 92 L 01/30/21 03:43 Weight - Most Recent: 129.002 kg I&O - Last 24 Hours: Intake & Output 01/29/21 01/30/21 01/30/21 22:59 06:59 14:59 Intake Total 1180 1600 Output Total 1600 1700 Balance -420 -100 Lab Results Last 24 Hours: Laboratory Results - last 24 hr 01/30/21 01/30/21 01/30/21 Range/Units 04:45 04:45 04:45 WBC 9.53 (3.98-10.04) K/mm3 RBC 4.13 (3.98-5.22) M/mm3 Hgb 12.3 (11.2-15.7) gm/dl Hct 38.1 (34.1-44.9) % MCV 92.3 (79.4-94.8) fl MCH 29.8 (25.6-32.2) pg MCHC 32.3 (32.2-35.5) g/dl RDW Std Deviation 47.9 H (36.4-46.3) fL Plt Count 216 (182-369) K/mm3 MPV 10.3 (9.4-12.3) fl Neut % (Auto) 76.4 H (34.0-71.1) % Lymph % (Auto) 15.1 L (19.3-51.7) % [place] % (Auto) 6.8 (4.7-12.5) % Eos % (Auto) 0 L (0.7-5.8) Baso % (Auto) 0.1 (0.1-1.2) % Neut # (Auto) 7.28 H (1.56-6.13) K/mm3 Lymph # (Auto) 1.44 (1.18-3.74) K/mm3 [place] # (Auto) 0.65 H (0.24-0.36) K/mm3 Eos # (Auto) 0.00 L (0.04-0.36) K/mm3 Baso # (Auto) 0.01 (0.01-0.08) K/mm3 D-Dimer, Quantitative 4.49 H (0.19-0.50) mg/L Sodium (136-145) mEq/L Potassium (3.5-5.1) mEq/L Chloride (98-107) mEq/L Carbon Dioxide (21-32) mEq/L Anion Gap (5-15) BUN (7-18) mg/dL Creatinine (0.55-1.02) mg/dL Est Cr Clr Drug Dosing mL/min Estimated GFR (MDRD) (>60) mL/min BUN/Creatinine Ratio (14-18) Glucose (70-99) mg/dL Calcium (8.5-10.1) mg/dL Phosphorus (2.6-4.7) mg/dL Magnesium (1.8-2.4) mg/dL Total Bilirubin (0.2-1.0) mg/dL AST (15-37) U/L ALT (14-59) U/L Alkaline Phosphatase (46-116) U/L C-Reactive Protein 1.1 H* (<1.0) mg/dL Total Protein (6.4-8.2) g/dl Albumin (3.4-5.0) g/dl Globulin gm/dL Albumin/Globulin Ratio (1-2) 10/23/21 Range/Units 04:45 WBC (3.98-10.04) K/mm3 RBC (3.98-5.22) M/mm3 Hgb (11.2-15.7) gm/dl Hct (34.1-44.9) % MCV (79.4-94.8) fl MCH (25.6-32.2) pg MCHC (32.2-35.5) g/dl RDW Std Deviation (36.4-46.3) fL Plt Count (182-369) K/mm3 MPV (9.4-12.3) fl Neut % (Auto) (34.0-71.1) % Lymph % (Auto) (19.3-51.7) % [place] % (Auto) (4.7-12.5) % Eos % (Auto) (0.7-5.8) Baso % (Auto) (0.1-1.2) % Neut # (Auto) (1.56-6.13) K/mm3 Lymph # (Auto) (1.18-3.74) K/mm3 [place] # (Auto) (0.24-0.36) K/mm3 Eos # (Auto) (0.04-0.36) K/mm3 Baso # (Auto) (0.01-0.08) K/mm3 D-Dimer, Quantitative (0.19-0.50) mg/L Sodium 136 (136-145) mEq/L Potassium 4.7 (3.5-5.1) mEq/L Chloride 101 (98-107) mEq/L Carbon Dioxide 27 (21-32) mEq/L Anion Gap 12.7 (5-15) BUN 32 H (7-18) mg/dL Creatinine 0.8 (0.55-1.02) mg/dL Est Cr Clr Drug Dosing 81.08 mL/min Estimated GFR (MDRD) > 60 (>60) mL/min BUN/Creatinine Ratio 40.0 H (14-18) Glucose 158 H (70-99) mg/dL Calcium 8.1 L (8.5-10.1) mg/dL Phosphorus 4.3 (2.6-4.7) mg/dL Magnesium 2.2 (1.8-2.4) mg/dL Total Bilirubin 0.3 (0.2-1.0) mg/dL AST 14 L (15-37) U/L ALT 35 (14-59) U/L Alkaline Phosphatase 64 (46-116) U/L C-Reactive Protein (<1.0) mg/dL Total Protein 6.6 (6.4-8.2) g/dl Albumin 2.5 L (3.4-5.0) g/dl Globulin 4.1 gm/dL Albumin/Globulin Ratio 0.6 L (1-2) Med Orders - Current: Current Medications Albuterol/Ipratropium (Albuterol/Ipratropium 3.0-0.5 Mg/3 Ml Neb Soln) 3 ml NEB Q4H PRN PRN Reason: Shortness Of Breath/wheezing Last Admin: 01/29/21 20:57 Dose: 3 ml Documented by: Apixaban (Apixaban 5 Mg Tab) 5 mg PO BID [facility] Last Admin: 01/29/21 20:14 Dose: 5 mg Documented by: Baricitinib (Baricitinib 2 Mg Tab) 4 mg PO DAILY [facility] Stop: 02/07/21 09:01 Last Admin: 01/29/21 08:58 Dose: 4 mg Documented by: Dexamethasone (Dexamethasone 4 Mg Tab) 6 mg PO DAILY [facility] Dexamethasone (Dexamethasone 10 Mg/Ml Sdv) 6 mg IVPUSH ONETIME ONE Stop: 01/30/21 09:01 Guaifenesin (Guaifenesin 600 Mg Tab.Er) 600 mg PO BID [facility] Last Admin: 01/29/21 20:14 Dose: 600 mg Documented by: Promethazine HCl 12.5 mg/ (Sodium Chloride) 50.5 mls @ 100 mls/hr IV Q6H PRN PRN Reason: Nausea/Vomiting Levothyroxine Sodium (Levothyroxine 200 Mcg Tab) 200 mcg PO 0600 [facility] Last Admin: 01/30/21 05:55 Dose: 200 mcg Documented by: Oxycodone HCl (Oxycodone 5 Mg Tab) 5 mg PO Q6H PRN PRN Reason: Pain (moderate 4-6) Last Admin: 01/28/21 04:50 Dose: 5 mg Documented by: Saccharomyces Boulardii (Saccharomyces Boulardii (Probiotic) 250 Mg Cap) 250 mg PO DAILY [facility] Last Admin: 01/29/21 08:58 Dose: 250 mg Documented by: Temazepam (Temazepam 7.5 Mg Cap) 7.5 mg PO BEDTIME PRN PRN Reason: Sleep Last Admin: 01/29/21 20:14 Dose: 7.5 mg Documented by: Discontinued Medications Acetaminophen (Acetaminophen 325 Mg Tab) 975 mg PO NOW ONE Stop: 01/24/21 11:55 Last Admin: 01/24/21 12:28 Dose: 975 mg Documented by: Ceftriaxone Sodium (Ceftriaxone 1 Gm Advvial) Confirm Administered Dose 1 gm IV .STK-MED ONE Stop: 01/24/21 21:52 Last Admin: 01/24/21 23:40 Dose: 1 gm Documented by: Dexamethasone (Dexamethasone 4 Mg/Ml 5 Ml Mdv) 6 mg IV Q24H [facility] Last Admin: 01/25/21 09:13 Dose: 6 mg Documented by: Dexamethasone (Dexamethasone 4 Mg/Ml 5 Ml Mdv) 20 mg IVPUSH DAILY [facility] Stop: 01/30/21 09:01 Last Admin: 01/29/21 09:00 Dose: 20 mg Documented by: Dexamethasone (Dexamethasone 4 Mg/Ml 5 Ml Mdv) 14 mg IVPUSH ONETIME ONE Stop: 01/25/21 11:01 Last Admin: 01/25/21 11:11 Dose: 14 mg Documented by: Heparin Sodium (Porcine) (Heparin Sodium 5,000 Units/Ml Vial) 5,000 units IVPUSH .BOLUS ONE Stop: 01/23/21 17:44 Last Admin: 01/23/21 18:04 Dose: 5,000 units Documented by: Heparin Sodium (Porcine) (Heparin Sodium 5,000 Units/Ml Vial) 2,500 units IVPUSH .BOLUS ONE; Protocol Stop: 01/24/21 07:27 Last Admin: 01/24/21 07:34 Dose: 2,500 units Documented by: Heparin Sodium (Porcine) (Heparin Sodium 5,000 Units/Ml Vial) 1,500 units IVPUSH .BOLUS ONE Stop: 01/24/21 12:21 Last Admin: 01/24/21 12:27 Dose: 1,500 units Documented by: Heparin Sodium (Porcine) (Heparin Sodium 5,000 Units/Ml Vial) 2,500 units IVPUSH .BOLUS ONE Stop: 01/25/21 06:23 Last Admin: 01/25/21 06:39 Dose: 2,500 units Documented by: Remdesivir 200 mg/ Sodium (Chloride) 250 mls @ 250 mls/hr IV ONETIME ONE Stop: 01/23/21 14:36 Last Admin: 01/23/21 14:56 Dose: 250 mls/hr Documented by: Heparin Sodium/Dextrose (Heparin 25,000 Units In D5w 500 Ml) 25,000 units in 500 mls @ 26 mls/hr IV TITRATE [facility]; Protocol Last Titration: 01/25/21 06:42 Dose: 2,591 units/hr, 51.82 mls/hr Documented by: Remdesivir 100 mg/ Sodium (Chloride) 100 mls @ 100 mls/hr IV Q24H [facility] Stop: 01/27/21 08:44 Last Admin: 01/24/21 08:10 Dose: Not Given Documented by: Remdesivir 100 mg/ Sodium (Chloride) 100 mls @ 100 mls/hr IV Q24H [facility] Stop: 01/27/21 15:59 Last Admin: 01/27/21 17:30 Dose: 100 mls/hr Documented by: Azithromycin 500 mg/ Sodium (Chloride) 250 mls @ 250 mls/hr IV Q24H [facility] Last Admin: 01/26/21 20:23 Dose: 250 mls/hr Documented by: Ceftriaxone Sodium 1 gm/ (Sodium Chloride) 100 mls @ 200 mls/hr IV Q24H [facility] Last Admin: 01/24/21 23:40 Dose: 200 mls/hr Documented by: Sodium Chloride (Normal Saline) Confirm Administered Dose 100 mls @ as directed .ROUTE .STK-MED ONE Stop: 01/24/21 21:53 Last Admin: 01/24/21 22:07 Dose: Not Given Documented by: Ceftriaxone Sodium 1 gm/ (Sodium Chloride) 100 mls @ 200 mls/hr IV Q24H [facility] Ceftriaxone Sodium 2 gm/ (Sodium Chloride) 100 mls @ 200 mls/hr IV Q24H [facility] Last Admin: 01/26/21 22:09 Dose: 200 mls/hr Documented by: Sodium Chloride (Normal Saline) Confirm Administered Dose 100 mls @ as directed .ROUTE .STK-MED ONE Stop: 01/25/21 15:20 Last Admin: 01/25/21 15:43 Dose: Not Given Documented by: Influenza Virus Vaccine (Flu Vacc [id number] 36mos Up/Pf 60 Mcg/0.5 Ml Syringe) 60 mcg IM .ONCE ONE Stop: 01/25/21 08:01 Levothyroxine Sodium (Levothyroxine 200 Mcg Tab) 200 mcg PO DAILY [facility] Last Admin: 01/29/21 08:58 Dose: 200 mcg Documented by: Morphine Sulfate (Morphine 2 Mg/Ml Syringe) 2 mg IVPUSH Q4H PRN PRN Reason: Pain (severe 7-10) Stop: 01/26/21 10:14 - Exam Quality Assessment: Supplemental Oxygen, DVT Prophylaxis General: Alert, Oriented, Cooperative, No Acute Distress HEENT: Pupils Equal, Pupils Reactive, EOMI, Mucous Membr. Moist/[place] Neck: Supple, Trachea Midline Lungs: Clear to Auscultation, Normal Respiratory Effort Cardiovascular: Regular Rate, Regular Rhythm GI/Abdominal Exam: Normal Bowel Sounds, Soft, Non-Tender, No Distention (Female) Exam: Deferred Back Exam: Normal Inspection, Full Range of Motion Extremities: Normal Inspection, Normal Range of Motion, No Pedal Edema Skin: Warm, Dry, Intact Neurological: No New Focal Deficit Psy/Mental Status: Alert, Normal Affect, Normal Mood - Patient Data Lab Results Last 24 hrs: Laboratory Results - last 24 hr 01/30/21 01/30/21 01/30/21 Range/Units 04:45 04:45 04:45 WBC 9.53 (3.98-10.04) K/mm3 RBC 4.13 (3.98-5.22) M/mm3 Hgb 12.3 (11.2-15.7) gm/dl Hct 38.1 (34.1-44.9) % MCV 92.3 (79.4-94.8) fl MCH 29.8 (25.6-32.2) pg MCHC 32.3 (32.2-35.5) g/dl RDW Std Deviation 47.9 H (36.4-46.3) fL Plt Count 216 (182-369) K/mm3 MPV 10.3 (9.4-12.3) fl Neut % (Auto) 76.4 H (34.0-71.1) % Lymph % (Auto) 15.1 L (19.3-51.7) % [place] % (Auto) 6.8 (4.7-12.5) % Eos % (Auto) 0 L (0.7-5.8) Baso % (Auto) 0.1 (0.1-1.2) % Neut # (Auto) 7.28 H (1.56-6.13) K/mm3 Lymph # (Auto) 1.44 (1.18-3.74) K/mm3 [place] # (Auto) 0.65 H (0.24-0.36) K/mm3 Eos # (Auto) 0.00 L (0.04-0.36) K/mm3 Baso # (Auto) 0.01 (0.01-0.08) K/mm3 D-Dimer, Quantitative 4.49 H (0.19-0.50) mg/L Sodium (136-145) mEq/L Potassium (3.5-5.1) mEq/L Chloride (98-107) mEq/L Carbon Dioxide (21-32) mEq/L Anion Gap (5-15) BUN (7-18) mg/dL Creatinine (0.55-1.02) mg/dL Est Cr Clr Drug Dosing mL/min Estimated GFR (MDRD) (>60) mL/min BUN/Creatinine Ratio (14-18) Glucose (70-99) mg/dL Calcium (8.5-10.1) mg/dL Phosphorus (2.6-4.7) mg/dL Magnesium (1.8-2.4) mg/dL Total Bilirubin (0.2-1.0) mg/dL AST (15-37) U/L ALT (14-59) U/L Alkaline Phosphatase (46-116) U/L C-Reactive Protein 1.1 H* (<1.0) mg/dL Total Protein (6.4-8.2) g/dl Albumin (3.4-5.0) g/dl Globulin gm/dL Albumin/Globulin Ratio (1-2) 01/30/21 Range/Units 04:45 WBC (3.98-10.04) K/mm3 RBC (3.98-5.22) M/mm3 Hgb (11.2-15.7) gm/dl Hct (34.1-44.9) % MCV (79.4-94.8) fl MCH (25.6-32.2) pg MCHC (32.2-35.5) g/dl RDW Std Deviation (36.4-46.3) fL Plt Count (182-369) K/mm3 MPV (9.4-12.3) fl Neut % (Auto) (34.0-71.1) % Lymph % (Auto) (19.3-51.7) % [place] % (Auto) (4.7-12.5) % Eos % (Auto) (0.7-5.8) Baso % (Auto) (0.1-1.2) % Neut # (Auto) (1.56-6.13) K/mm3 Lymph # (Auto) (1.18-3.74) K/mm3 [place] # (Auto) (0.24-0.36) K/mm3 Eos # (Auto) (0.04-0.36) K/mm3 Baso # (Auto) (0.01-0.08) K/mm3 D-Dimer, Quantitative (0.19-0.50) mg/L Sodium 136 (136-145) mEq/L Potassium 4.7 (3.5-5.1) mEq/L Chloride 101 (98-107) mEq/L Carbon Dioxide 27 (21-32) mEq/L Anion Gap 12.7 (5-15) BUN 32 H (7-18) mg/dL Creatinine 0.8 (0.55-1.02) mg/dL Est Cr Clr Drug Dosing 81.08 mL/min Estimated GFR (MDRD) > 60 (>60) mL/min BUN/Creatinine Ratio 40.0 H (14-18) Glucose 158 H (70-99) mg/dL Calcium 8.1 L (8.5-10.1) mg/dL Phosphorus 4.3 (2.6-4.7) mg/dL Magnesium 2.2 (1.8-2.4) mg/dL Total Bilirubin 0.3 (0.2-1.0) mg/dL AST 14 L (15-37) U/L ALT 35 (14-59) U/L Alkaline Phosphatase 64 (46-116) U/L C-Reactive Protein (<1.0) mg/dL Total Protein 6.6 (6.4-8.2) g/dl Albumin 2.5 L (3.4-5.0) g/dl Globulin 4.1 gm/dL Albumin/Globulin Ratio 0.6 L (1-2) Result Diagrams: 01/30/21 04:45 01/30/21 04:45 Sepsis Event Note - Evaluation Sepsis Screening Result: No Definite Risk - Focused Exam Vital Signs: Vital Signs Temp Pulse Resp BP Pulse Ox Pulse Ox 01/30/21 03:43 36.2 C 59 L 22 H 122/63 92 L 01/29/21 20:57 94 L 01/29/21 20:20 36.3 C 71 18 138/71 90 L - Problem List & Annotations (1) Hypoxia SNOMED Code(s): 555004011 Code(s): R09.02 - HYPOXEMIA Status: Acute Priority: High Current Visit: Yes (2) Pneumonia due to COVID-19 virus SNOMED Code(s): 477283189554290946 Code(s): U07.1 - COVID-19; J12.82 - PNEUMONIA DUE TO CORONAVIRUS DISEASE 2019 Status: Acute Priority: High Current Visit: Yes (3) Respiratory failure with hypoxia SNOMED Code(s): 99753919821368467 Code(s): J96.91 - RESPIRATORY FAILURE, UNSPECIFIED WITH HYPOXIA Status: Acute Priority: High Current Visit: Yes Qualifiers: Chronicity: acute Qualified Code(s): J96.01 - Acute respiratory failure with hypoxia - Problem List Review Problem List Initiated/Reviewed/Updated: Yes - Plan Plan:: Assessment and plan: Acute hypoxic respiratory failure Patient possibly has a history of asthma. But it is most likely due to pneumonia Continuous pulse ox Oxygen therapy, high flow/BiPAP as needed to keep oxygen saturation greater than 90% Continued improvement today on oxygenation. Able to wean her down to high flow nasal cannula at 40 L and 50% FiO2. Covid pneumonia positive Covid test and Symptoms started on January 08, 2021. Has not vaccinated against Covid 19 Chest x-ray showed bilateral pneumonia D-dimer increased to five, CRP 10.1->11.3->6.7-->2.1 Continue dexamethasone 20 mg IV daily x 5 days (since 01/25) followed by 6 mg p.o. daily. Eliquis 5 mg twice daily Complete 5 days of remdesivir baricitinib 4 mg oral daily (since 01/25) No evidence of bacterial infection (afebrile, WBC WNL even though she is on steroid), ceftriaxone and azithromycin discontinued Inhalers Prone position CBC, CMP and CRP daily Morbid obeisty, BMI 42 Consult dietitian Lifestyle modification Follow with PCP DVT prophylaxis: Robbie CODE STATUS: Full Disposition: Patient likely needs to stay in the hospital for more than 4 days due to the nature of the Covid pneumonia with severe oxygen desaturation Prognosis: Guarded 01/30/2021 The patient is a 55-year-old lady who has been somewhat slow to recover due to her requiring high flow oxygen. This will be continued to keep her saturations around 92%. Patient is also having DVT prophylaxis with the use of apixaban 5 mg twice daily to continue. She is diabetic and she has had episodes of hyperglycemia due to the steroid use and she will be continued on the insulin sliding scale as well as diabetic diet as tolerated. The patient is currently on baricitinib to continue for at least 14 days. Repeat laboratory studies have been ordered. The patient has been encouraged to ambulate. She should be appropriate for discharge once she has had significant reduction in her oxygen demands.
[2021-01-30] MEDS: Albuterol/Ipratropium 3.0-0.5 MG/3 ML Neb Soln NEB PRN ×2 (08:31→20:14)
[2021-01-30] MEDS ORDERED: Dexamethasone 10 MG/ML SDV IVPUSH ONE (09:00)
[2021-01-30] MEDS: Saccharomyces Boulardii (Probiotic) 250 MG Cap PO SCH (09:03)
[2021-01-30] MEDS: Apixaban 5 MG Tab PO SCH ×2 (09:03→21:25)
[2021-01-30] MEDS: guaiFENesin 600 MG Tab.ER PO SCH ×2 (09:03→21:25)
[2021-01-30] MEDS: Temazepam 7.5 MG Cap PO PRN (21:25)
[2021-01-31] MEDS: Apixaban 5 MG Tab PO SCH ×2 (08:47→20:13)
[2021-01-31] MEDS: Saccharomyces Boulardii (Probiotic) 250 MG Cap PO SCH (08:47)
[2021-01-31] MEDS: guaiFENesin 600 MG Tab.ER PO SCH ×2 (08:47→20:14)
[2021-01-31] MEDS: Dexamethasone 4 MG Tab PO SCH (08:47)
[2021-01-31] MEDS ORDERED: Albuterol 6.7 GM Inhaler INH PRN (08:52)
--- NOTE | 2021-01-31 13:43 | PCM.PN ---
- General Info Date of Service: 01/31/21 Admission Dx/Problem (Free Text): Admission Diagnosis/Problem Admission Diagnosis/Problem Hypoxia Subjective Update: The patient is a 55-year-old lady who was admitted to acute hospitalization on January 25, 2021 due to worsening of her COVID-19 symptoms and hypoxia. The patient has been slow to recover. She is still requiring high-dose oxygen. The patient says that she feels much better today. Her breathing has improved somewhat. The patient has been tolerating her diet. Non new complaints. She has denied any new pain. Functional Status: Reports: Pain Controlled, Tolerating Diet. Denies: New Symptoms - Review of Systems General: Reports: No Symptoms HEENT: Reports: No Symptoms Pulmonary: Reports: No Symptoms Cardiovascular: Reports: No Symptoms Gastrointestinal: Reports: No Symptoms Genitourinary: Reports: No Symptoms Musculoskeletal: Reports: No Symptoms Skin: Reports: No Symptoms Neurological: Reports: No Symptoms Psychiatric: Reports: No Symptoms - Patient Data Vitals - Most Recent: Last Vital Signs Temp 36.6 C 01/31/21 12:10 Pulse 68 01/31/21 12:10 Resp 18 01/31/21 12:10 BP 120/72 01/31/21 12:10 Pulse Ox 90 L 01/31/21 12:28 Weight - Most Recent: 128.457 kg I&O - Last 24 Hours: Intake & Output 01/30/21 01/31/21 01/31/21 22:59 06:59 14:59 Intake Total 1260 500 235 Output Total 1200 2000 Balance 60 -1500 235 Lab Results Last 24 Hours: Laboratory Results - last 24 hr 01/31/21 01/31/21 Range/Units 04:50 04:50 WBC 11.25 H (3.98-10.04) K/mm3 RBC 4.46 (3.98-5.22) M/mm3 Hgb 13.4 (11.2-15.7) gm/dl Hct 41.6 (34.1-44.9) % MCV 93.3 (79.4-94.8) fl MCH 30.0 (25.6-32.2) pg MCHC 32.2 (32.2-35.5) g/dl RDW Std Deviation 49.1 H (36.4-46.3) fL Plt Count 255 (182-369) K/mm3 MPV 10.5 (9.4-12.3) fl Neut % (Auto) 73.7 H (34.0-71.1) % Lymph % (Auto) 16.6 L (19.3-51.7) % [place] % (Auto) 7.6 (4.7-12.5) % Eos % (Auto) 0.3 L (0.7-5.8) Baso % (Auto) 0.2 (0.1-1.2) % Neut # (Auto) 8.29 H (1.56-6.13) K/mm3 Lymph # (Auto) 1.87 (1.18-3.74) K/mm3 [place] # (Auto) 0.86 H (0.24-0.36) K/mm3 Eos # (Auto) 0.03 L (0.04-0.36) K/mm3 Baso # (Auto) 0.02 (0.01-0.08) K/mm3 Sodium 136 (136-145) mEq/L Potassium 4.6 (3.5-5.1) mEq/L Chloride 100 (98-107) mEq/L Carbon Dioxide 29 (21-32) mEq/L Anion Gap 11.6 (5-15) BUN 33 H (7-18) mg/dL Creatinine 0.9 (0.55-1.02) mg/dL Est Cr Clr Drug Dosing 72.07 mL/min Estimated GFR (MDRD) > 60 (>60) mL/min BUN/Creatinine Ratio 36.7 H (14-18) Glucose 140 H (70-99) mg/dL Calcium 8.4 L (8.5-10.1) mg/dL Magnesium 2.3 (1.8-2.4) mg/dL Total Bilirubin 0.5 (0.2-1.0) mg/dL AST 15 (15-37) U/L ALT 36 (14-59) U/L Alkaline Phosphatase 63 (46-116) U/L C-Reactive Protein 0.7 (<1.0) mg/dL Total Protein 7.5 (6.4-8.2) g/dl Albumin 2.8 L (3.4-5.0) g/dl Globulin 4.7 gm/dL Albumin/Globulin Ratio 0.6 L (1-2) Med Orders - Current: Current Medications Albuterol (Albuterol 6.7 Gm Inhaler) 0 gm INH Q2H PRN PRN Reason: Dyspnea Last Admin: 01/31/21 12:28 Dose: 2 inhalation Documented by: Albuterol/Ipratropium (Albuterol/Ipratropium 3.0-0.5 Mg/3 Ml Neb Soln) 3 ml NEB Q4H PRN PRN Reason: Shortness Of Breath/wheezing Last Admin: 01/30/21 20:14 Dose: 3 ml Documented by: Apixaban (Apixaban 5 Mg Tab) 5 mg PO BID [facility] Last Admin: 01/31/21 08:47 Dose: 5 mg Documented by: Baricitinib (Baricitinib 2 Mg Tab) 4 mg PO DAILY [facility] Stop: 02/07/21 09:01 Last Admin: 01/31/21 08:47 Dose: 4 mg Documented by: Dexamethasone (Dexamethasone 4 Mg Tab) 6 mg PO DAILY [facility] Last Admin: 01/31/21 08:47 Dose: 6 mg Documented by: Guaifenesin (Guaifenesin 600 Mg Tab.Er) 600 mg PO BID [facility] Last Admin: 01/31/21 08:47 Dose: 600 mg Documented by: Promethazine HCl 12.5 mg/ (Sodium Chloride) 50.5 mls @ 100 mls/hr IV Q6H PRN PRN Reason: Nausea/Vomiting Levothyroxine Sodium (Levothyroxine 200 Mcg Tab) 200 mcg PO 0600 [facility] Last Admin: 01/31/21 05:40 Dose: 200 mcg Documented by: Oxycodone HCl (Oxycodone 5 Mg Tab) 5 mg PO Q6H PRN PRN Reason: Pain (moderate 4-6) Last Admin: 01/28/21 04:50 Dose: 5 mg Documented by: Saccharomyces Boulardii (Saccharomyces Boulardii (Probiotic) 250 Mg Cap) 250 mg PO DAILY [facility] Last Admin: 01/31/21 08:47 Dose: 250 mg Documented by: Temazepam (Temazepam 7.5 Mg Cap) 7.5 mg PO BEDTIME PRN PRN Reason: Sleep Last Admin: 01/30/21 21:25 Dose: 7.5 mg Documented by: Discontinued Medications Acetaminophen (Acetaminophen 325 Mg Tab) 975 mg PO NOW ONE Stop: 01/24/21 11:55 Last Admin: 01/24/21 12:28 Dose: 975 mg Documented by: Ceftriaxone Sodium (Ceftriaxone 1 Gm Advvial) Confirm Administered Dose 1 gm IV .STK-MED ONE Stop: 01/24/21 21:52 Last Admin: 01/24/21 23:40 Dose: 1 gm Documented by: Dexamethasone (Dexamethasone 4 Mg/Ml 5 Ml Mdv) 6 mg IV Q24H [facility] Last Admin: 01/25/21 09:13 Dose: 6 mg Documented by: Dexamethasone (Dexamethasone 4 Mg/Ml 5 Ml Mdv) 20 mg IVPUSH DAILY DONATO Stop: 01/30/21 09:01 Last Admin: 01/29/21 09:00 Dose: 20 mg Documented by: Dexamethasone (Dexamethasone 4 Mg/Ml 5 Ml Mdv) 14 mg IVPUSH ONETIME ONE Stop: 01/25/21 11:01 Last Admin: 01/25/21 11:11 Dose: 14 mg Documented by: Dexamethasone (Dexamethasone 10 Mg/Ml Sdv) 6 mg IVPUSH ONETIME ONE Stop: 01/30/21 09:01 Last Admin: 01/30/21 09:04 Dose: 6 mg Documented by: Heparin Sodium (Porcine) (Heparin Sodium 5,000 Units/Ml Vial) 5,000 units IVPUSH .BOLUS ONE Stop: 01/23/21 17:44 Last Admin: 01/23/21 18:04 Dose: 5,000 units Documented by: Heparin Sodium (Porcine) (Heparin Sodium 5,000 Units/Ml Vial) 2,500 units IVPUSH .BOLUS ONE; Protocol Stop: 01/24/21 07:27 Last Admin: 01/24/21 07:34 Dose: 2,500 units Documented by: Heparin Sodium (Porcine) (Heparin Sodium 5,000 Units/Ml Vial) 1,500 units IVPUSH .BOLUS ONE Stop: 01/24/21 12:21 Last Admin: 01/24/21 12:27 Dose: 1,500 units Documented by: Heparin Sodium (Porcine) (Heparin Sodium 5,000 Units/Ml Vial) 2,500 units IVPUSH .BOLUS ONE Stop: 01/25/21 06:23 Last Admin: 01/25/21 06:39 Dose: 2,500 units Documented by: Remdesivir 200 mg/ Sodium (Chloride) 250 mls @ 250 mls/hr IV ONETIME ONE Stop: 01/23/21 14:36 Last Admin: 01/23/21 14:56 Dose: 250 mls/hr Documented by: Heparin Sodium/Dextrose (Heparin 25,000 Units In D5w 500 Ml) 25,000 units in 500 mls @ 26 mls/hr IV TITRATE [facility]; Protocol Last Titration: 01/25/21 06:42 Dose: 2,591 units/hr, 51.82 mls/hr Documented by: Remdesivir 100 mg/ Sodium (Chloride) 100 mls @ 100 mls/hr IV Q24H [facility] Stop: 01/27/21 08:44 Last Admin: 01/24/21 08:10 Dose: Not Given Documented by: Remdesivir 100 mg/ Sodium (Chloride) 100 mls @ 100 mls/hr IV Q24H [facility] Stop: 01/27/21 15:59 Last Admin: 01/27/21 17:30 Dose: 100 mls/hr Documented by: Azithromycin 500 mg/ Sodium (Chloride) 250 mls @ 250 mls/hr IV Q24H [facility] Last Admin: 01/26/21 20:23 Dose: 250 mls/hr Documented by: Ceftriaxone Sodium 1 gm/ (Sodium Chloride) 100 mls @ 200 mls/hr IV Q24H [facility] Last Admin: 01/24/21 23:40 Dose: 200 mls/hr Documented by: Sodium Chloride (Normal Saline) Confirm Administered Dose 100 mls @ as directed .ROUTE .STK-MED ONE Stop: 01/24/21 21:53 Last Admin: 01/24/21 22:07 Dose: Not Given Documented by: Ceftriaxone Sodium 1 gm/ (Sodium Chloride) 100 mls @ 200 mls/hr IV Q24H [facility] Ceftriaxone Sodium 2 gm/ (Sodium Chloride) 100 mls @ 200 mls/hr IV Q24H [facility] Last Admin: 01/26/21 22:09 Dose: 200 mls/hr Documented by: Sodium Chloride (Normal Saline) Confirm Administered Dose 100 mls @ as directed .ROUTE .STK-MED ONE Stop: 01/25/21 15:20 Last Admin: 01/25/21 15:43 Dose: Not Given Documented by: Influenza Virus Vaccine (Flu Vacc [id number] 36mos Up/Pf 60 Mcg/0.5 Ml Syringe) 60 mcg IM .ONCE ONE Stop: 01/25/21 08:01 Levothyroxine Sodium (Levothyroxine 200 Mcg Tab) 200 mcg PO DAILY DONATO Last Admin: 01/29/21 08:58 Dose: 200 mcg Documented by: Morphine Sulfate (Morphine 2 Mg/Ml Syringe) 2 mg IVPUSH Q4H PRN PRN Reason: Pain (severe 7-10) Stop: 01/26/21 10:14 - Exam Quality Assessment: Supplemental Oxygen, DVT Prophylaxis General: Alert, Oriented, Cooperative, No Acute Distress HEENT: Pupils Equal, Pupils Reactive, EOMI, Mucous Membr. Moist/[place] Neck: Supple, Trachea Midline Lungs: Clear to Auscultation, Normal Respiratory Effort Cardiovascular: Regular Rate, Regular Rhythm GI/Abdominal Exam: Normal Bowel Sounds, Soft, Non-Tender, No Distention (Female) Exam: Deferred Back Exam: Normal Inspection, Full Range of Motion Extremities: Normal Inspection, Normal Range of Motion, No Pedal Edema Skin: Warm, Dry, Intact Neurological: No New Focal Deficit Psy/Mental Status: Alert, Normal Affect - Patient Data Lab Results Last 24 hrs: Laboratory Results - last 24 hr 01/31/21 01/31/21 Range/Units 04:50 04:50 WBC 11.25 H (3.98-10.04) K/mm3 RBC 4.46 (3.98-5.22) M/mm3 Hgb 13.4 (11.2-15.7) gm/dl Hct 41.6 (34.1-44.9) % MCV 93.3 (79.4-94.8) fl MCH 30.0 (25.6-32.2) pg MCHC 32.2 (32.2-35.5) g/dl RDW Std Deviation 49.1 H (36.4-46.3) fL Plt Count 255 (182-369) K/mm3 MPV 10.5 (9.4-12.3) fl Neut % (Auto) 73.7 H (34.0-71.1) % Lymph % (Auto) 16.6 L (19.3-51.7) % [place] % (Auto) 7.6 (4.7-12.5) % Eos % (Auto) 0.3 L (0.7-5.8) Baso % (Auto) 0.2 (0.1-1.2) % Neut # (Auto) 8.29 H (1.56-6.13) K/mm3 Lymph # (Auto) 1.87 (1.18-3.74) K/mm3 [place] # (Auto) 0.86 H (0.24-0.36) K/mm3 Eos # (Auto) 0.03 L (0.04-0.36) K/mm3 Baso # (Auto) 0.02 (0.01-0.08) K/mm3 Sodium 136 (136-145) mEq/L Potassium 4.6 (3.5-5.1) mEq/L Chloride 100 (98-107) mEq/L Carbon Dioxide 29 (21-32) mEq/L Anion Gap 11.6 (5-15) BUN 33 H (7-18) mg/dL Creatinine 0.9 (0.55-1.02) mg/dL Est Cr Clr Drug Dosing 72.07 mL/min Estimated GFR (MDRD) > 60 (>60) mL/min BUN/Creatinine Ratio 36.7 H (14-18) Glucose 140 H (70-99) mg/dL Calcium 8.4 L (8.5-10.1) mg/dL Magnesium 2.3 (1.8-2.4) mg/dL Total Bilirubin 0.5 (0.2-1.0) mg/dL AST 15 (15-37) U/L ALT 36 (14-59) U/L Alkaline Phosphatase 63 (46-116) U/L C-Reactive Protein 0.7 (<1.0) mg/dL Total Protein 7.5 (6.4-8.2) g/dl Albumin 2.8 L (3.4-5.0) g/dl Globulin 4.7 gm/dL Albumin/Globulin Ratio 0.6 L (1-2) Result Diagrams: 01/31/21 04:50 01/31/21 04:50 Sepsis Event Note - Evaluation Sepsis Screening Result: No Definite Risk - Focused Exam Vital Signs: Vital Signs Temp Pulse Resp BP Pulse Ox Pulse Ox 01/31/21 12:28 90 L 01/31/21 12:10 36.6 C 68 18 120/72 90 L 01/31/21 08:51 36.7 C 82 15 137/52 L 88 L 01/31/21 08:15 90 L 10/24/21 03:50 36.2 C 64 20 86/59 L 92 L - Problem List & Annotations (1) Hypoxia SNOMED Code(s): 171892335 Code(s): R09.02 - HYPOXEMIA Status: Acute Priority: High Current Visit: Yes (2) Pneumonia due to COVID-19 virus SNOMED Code(s): 407910704584887520 Code(s): U07.1 - COVID-19; J12.82 - PNEUMONIA DUE TO CORONAVIRUS DISEASE 2019 Status: Acute Priority: High Current Visit: Yes (3) Respiratory failure with hypoxia SNOMED Code(s): 37274176282459359 Code(s): J96.91 - RESPIRATORY FAILURE, UNSPECIFIED WITH HYPOXIA Status: Acute Priority: High Current Visit: Yes Qualifiers: Chronicity: acute Qualified Code(s): J96.01 - Acute respiratory failure with hypoxia - Problem List Review Problem List Initiated/Reviewed/Updated: Yes - My Orders Last 24 Hours: My Active Orders 01/31/21 08:52 Albuterol [Proventil HFA] See Dose Instructions INH Q2H PRN - Plan Plan:: Assessment and plan: Acute hypoxic respiratory failure Patient possibly has a history of asthma. But it is most likely due to pneumonia Continuous pulse ox Oxygen therapy, high flow/BiPAP as needed to keep oxygen saturation greater than 90% Continued improvement today on oxygenation. Able to wean her down to high flow nasal cannula at 40 L and 50% FiO2. Covid pneumonia positive Covid test and Symptoms started on January 08, 2021. Has not vaccinated against Covid 19 Chest x-ray showed bilateral pneumonia D-dimer increased to five, CRP 10.1->11.3->6.7-->2.1 Continue dexamethasone 20 mg IV daily x 5 days (since 01/25) followed by 6 mg p.o. daily. Eliquis 5 mg twice daily Complete 5 days of remdesivir baricitinib 4 mg oral daily (since 01/25) No evidence of bacterial infection (afebrile, WBC WNL even though she is on steroid), ceftriaxone and azithromycin discontinued Inhalers Prone position CBC, CMP and CRP daily Morbid obeisty, BMI 42 Consult dietitian Lifestyle modification Follow with PCP DVT prophylaxis: Eliquis CODE STATUS: Full Disposition: Patient likely needs to stay in the hospital for more than 4 days due to the nature of the Covid pneumonia with severe oxygen desaturation Prognosis: Guarded 01/30/2021 The patient is a 55-year-old lady who has been somewhat slow to recover due to her requiring high flow oxygen. This will be continued to keep her saturations around 92%. Patient is also having DVT prophylaxis with the use of apixaban 5 mg twice daily to continue. She is diabetic and she has had episodes of hyperglycemia due to the steroid use and she will be continued on the insulin sliding scale as well as diabetic diet as tolerated. The patient is currently on baricitinib to continue for at least 14 days. Repeat laboratory studies have been ordered. The patient has been encouraged to ambulate. She should be appropriate for discharge once she has had significant reduction in her oxygen demands. 01/31/2021 Patient is a 55-year-old lady who has been slow to recover and she is still requiring high oxygen flow. The patient overall is doing somewhat better. Nonetheless we will continue to monitor her oxygen and keep her saturations around 92%. She is also having DVT prophylaxis with the use of apixaban 5 mg twice daily. Patient is on a diabetic diet and has had excursions of hyperglycemia due to steroid usage. The patient is also on baricitinib and she should be continuing on this until discharge. Repeat laboratory studies have been ordered for the morning. The patient has been encouraged to ambulate in her room.
[2021-01-31] MEDS: Temazepam 7.5 MG Cap PO PRN (20:14)
[2021-02-01] MEDS: Albuterol/Ipratropium 3.0-0.5 MG/3 ML Neb Soln NEB PRN (05:35)
[2021-02-01] MEDS: Saccharomyces Boulardii (Probiotic) 250 MG Cap PO SCH (09:23)
[2021-02-01] MEDS: Dexamethasone 4 MG Tab PO SCH (09:24)
[2021-02-01] MEDS: Apixaban 5 MG Tab PO SCH (09:24)
[2021-02-01] MEDS: guaiFENesin 600 MG Tab.ER PO SCH (09:24)
--- NOTE | 2021-02-01 09:28 | PCM.DCSUM1 ---
Discharge Summary - Hospital Course HPI Initial Comments: The patient has been admitted to acute hospitalization secondary to continuation of her COVID-19 pneumonia and hypoxia. Diagnosis: Stroke: No - Discharge Data Discharge Date: 02/01/21 Discharge Disposition: Home, Self-Care 01 Condition: Good - Referral to Home Health Primary Care Physician: Alistair Avelar MD - Discharge Diagnosis/Problem(s) (1) Hypoxia SNOMED Code(s): 600604246 ICD Code: R09.02 - HYPOXEMIA Status: Resolved Priority: High (2) Pneumonia due to COVID-19 virus SNOMED Code(s): 658527627984569001 ICD Code: U07.1 - COVID-19; J12.82 - PNEUMONIA DUE TO CORONAVIRUS DISEASE 2019 Status: Resolved Priority: High (3) Respiratory failure with hypoxia SNOMED Code(s): 48074934479381842 ICD Code: J96.91 - RESPIRATORY FAILURE, UNSPECIFIED WITH HYPOXIA Status: Resolved Priority: High Qualifiers: Chronicity: acute Qualified Code(s): J96.01 - Acute respiratory failure with hypoxia - Patient Summary/Data Hospital Course: The patient is a 55-year-old lady who had been admitted to acute hospitalization due to continuation of her COVID-19 symptoms. She had been hypoxic initially upon presentation with desaturations into the 70s. Patient initially had been placed on BiPAP with with oxygen to help keep her saturations around 92%. Because of the severity of the oxygen demands the patient was placed on baricitinib and she had improved significantly over the course of hospitalization. The patient also had been placed on remdesivir as well as dexamethasone. The patient tolerated these well. Initially the patient had been started on antibiotics consisting of Rocephin 1 g IV every 24 hours and a azithromycin 500 mg IV every 24 hours. The patient tolerated both these antibiotics well. It should be noted that the patient's Covid symptoms started approximately 3 weeks prior to hospitalization. She had been placed on remdesivir and dexamethasone secondary to her severe oxygen requirements. Initially the patient's white blood cell count was at 7000 and this had risen to 13,000 by day of discharge secondary to the marginalization as well as steroid usage. The patient also had severe elevation of her D-dimer which had been trending down. As a result of the COVID-19 pneumonia as well as the elevation in her D-dimer the patient was sent home on Eliquis 5 mg p.o. twice daily for 1 month. Patient should be able to safely come off of the Eliquis after 1 month. She is to follow-up with her primary care physician for this. The patient C- reactive protein had also been elevated but this is normalized by day of discharge. The patient had remained hemodynamically stable. She has been re commended to continue with her appropriate diet as tolerated. Patient is also have activity as tolerated. The patient currently is hemodynamically stable and she is discharged on low use oxygen via nasal cannula with the recommendations listed above. - Patient Instructions Diet: Usual Diet as Tolerated Activity: As Tolerated Notify Provider of: Fever, Increased Pain - Discharge Plan *PRESCRIPTION DRUG MONITORING PROGRAM REVIEWED*: No *COPY OF PRESCRIPTION DRUG MONITORING REPORT IN PATIENT [place]: No Prescriptions/Med Rec: Apixaban [Eliquis] 5 mg PO BID #60 tablet Home Medications: Home Meds Levothyroxine 200 mcg PO DAILY 07/24/14 [History] valACYclovir HCl [valACYclovir] 1,000 tab PO BID PRN 08/01/14 [History] Cyclobenzaprine [Flexeril] 10 mg PO BEDTIME PRN 01/19/21 [History] Magnesium Oxide [Magnesium] 400 mg PO DAILY 01/19/21 [History] dexAMETHasone [Dexamethasone] 6 mg PO QAM 7 Days #11 tab 01/19/21 [Rx] Apixaban [Eliquis] 5 mg PO BID #60 tablet 02/01/21 [Rx] Oxygen Therapy Mode: Room Air Patient Handouts: COVID-19 Frequently Asked Questions, COVID-19, 10 Things You Can Do to Manage Your COVID-19 Symptoms at Home - CDC (10/23/2020), Healthy Eating, Sepsis, Self Care, Adult Referrals: Alistair Avelar MD [Primary Care Provider] - (Clinic will call you with a follow-up appointment time.) - Discharge Summary/Plan Comment DC Time >30 min.: Yes Total # of Minutes for Discharge Time: 60 - General Info Date of Service: 02/01/21 Admission Dx/Problem (Free Text: Admission Diagnosis/Problem Admission Diagnosis/Problem Hypoxia Subjective Update: The patient today says that she is feeling much better. She feels overall improved. The patient says that she feels like she can go home. She has been tolerating her diet. The patient has been ambulating. Functional Status: Reports: Pain Controlled, Tolerating Diet. Denies: New Symptoms - Review of Systems General: Reports: No Symptoms HEENT: Reports: No Symptoms Pulmonary: Reports: No Symptoms Cardiovascular: Reports: No Symptoms Gastrointestinal: Reports: No Symptoms Genitourinary: Reports: No Symptoms Musculoskeletal: Reports: No Symptoms Skin: Reports: No Symptoms Neurological: Reports: No Symptoms Psychiatric: Reports: No Symptoms - Patient Data Vitals - Most Recent: Last Vital Signs Temp 36.4 C 02/01/21 04:29 Pulse 55 L 02/01/21 04:29 Resp 18 02/01/21 04:29 BP 114/67 02/01/21 04:29 Pulse Ox 92 L 02/01/21 05:36 Weight - Most Recent: 127.545 kg I&O - Last 24 hours: Intake & Output 01/31/21 02/01/21 02/01/21 22:59 06:59 14:59 Intake Total 640 1680 Output Total 2900 2150 Balance -2260 -470 Lab Results - Last 24 hrs: Laboratory Results - last 24 hr 02/01/21 02/01/21 02/01/21 Range/Units 06:28 06:28 06:28 WBC 13.49 H (3.98-10.04) K/mm3 RBC 4.71 (3.98-5.22) M/mm3 Hgb 13.9 (11.2-15.7) gm/dl Hct 43.7 (34.1-44.9) % MCV 92.8 (79.4-94.8) fl MCH 29.5 (25.6-32.2) pg MCHC 31.8 L (32.2-35.5) g/dl RDW Std Deviation 49.4 H (36.4-46.3) fL Plt Count 254 (182-369) K/mm3 MPV 10.2 (9.4-12.3) fl Neut % (Auto) 64.5 (34.0-71.1) % Lymph % (Auto) 27.1 (19.3-51.7) % [place] % (Auto) 6.5 (4.7-12.5) % Eos % (Auto) 0.1 L (0.7-5.8) Baso % (Auto) 0.1 (0.1-1.2) % Neut # (Auto) 8.69 H (1.56-6.13) K/mm3 Lymph # (Auto) 3.65 (1.18-3.74) K/mm3 [place] # (Auto) 0.88 H (0.24-0.36) K/mm3 Eos # (Auto) 0.02 L (0.04-0.36) K/mm3 Baso # (Auto) 0.02 (0.01-0.08) K/mm3 Manual Slide Review Normal smear D-Dimer, Quantitative 2.42 H (0.19-0.50) mg/L Sodium 133 L (136-145) mEq/L Potassium 4.5 (3.5-5.1) mEq/L Chloride 98 (98-107) mEq/L Carbon Dioxide 26 (21-32) mEq/L Anion Gap 13.5 (5-15) BUN 32 H (7-18) mg/dL Creatinine 0.9 (0.55-1.02) mg/dL Est Cr Clr Drug Dosing 72.07 mL/min Estimated GFR (MDRD) > 60 (>60) mL/min BUN/Creatinine Ratio 35.6 H (14-18) Glucose 127 H (70-99) mg/dL Calcium 8.8 (8.5-10.1) mg/dL Total Bilirubin 0.7 (0.2-1.0) mg/dL AST 18 (15-37) U/L ALT 43 (14-59) U/L Alkaline Phosphatase 65 (46-116) U/L Total Protein 7.9 (6.4-8.2) g/dl Albumin 3.0 L (3.4-5.0) g/dl Globulin 4.9 gm/dL Albumin/Globulin Ratio 0.6 L (1-2) Med Orders - Current: Current Medications Albuterol (Albuterol 6.7 Gm Inhaler) 0 gm INH Q2H PRN PRN Reason: Dyspnea Last Admin: 01/31/21 12:28 Dose: 2 inhalation Documented by: Albuterol/Ipratropium (Albuterol/Ipratropium 3.0-0.5 Mg/3 Ml Neb Soln) 3 ml NEB Q4H PRN PRN Reason: Shortness Of Breath/wheezing Last Admin: 02/01/21 05:35 Dose: 3 ml Documented by: Apixaban (Apixaban 5 Mg Tab) 5 mg PO BID [facility] Last Admin: 02/01/21 09:24 Dose: 5 mg Documented by: Baricitinib (Baricitinib 2 Mg Tab) 4 mg PO DAILY [facility] Stop: 02/07/21 09:01 Last Admin: 02/01/21 09:23 Dose: 4 mg Documented by: Dexamethasone (Dexamethasone 4 Mg Tab) 6 mg PO DAILY [facility] Last Admin: 02/01/21 09:24 Dose: 6 mg Documented by: Guaifenesin (Guaifenesin 600 Mg Tab.Er) 600 mg PO BID [facility] Last Admin: 02/01/21 09:24 Dose: 600 mg Documented by: Promethazine HCl 12.5 mg/ (Sodium Chloride) 50.5 mls @ 100 mls/hr IV Q6H PRN PRN Reason: Nausea/Vomiting Levothyroxine Sodium (Levothyroxine 200 Mcg Tab) 200 mcg PO 0600 [facility] Last Admin: 02/01/21 06:18 Dose: 200 mcg Documented by: Oxycodone HCl (Oxycodone 5 Mg Tab) 5 mg PO Q6H PRN PRN Reason: Pain (moderate 4-6) Last Admin: 01/28/21 04:50 Dose: 5 mg Documented by: Saccharomyces Boulardii (Saccharomyces Boulardii (Probiotic) 250 Mg Cap) 250 mg PO DAILY [facility] Last Admin: 02/01/21 09:23 Dose: 250 mg Documented by: Temazepam (Temazepam 7.5 Mg Cap) 7.5 mg PO BEDTIME PRN PRN Reason: Sleep Last Admin: 01/31/21 20:14 Dose: 7.5 mg Documented by: Discontinued Medications Acetaminophen (Acetaminophen 325 Mg Tab) 975 mg PO NOW ONE Stop: 01/24/21 11:55 Last Admin: 01/24/21 12:28 Dose: 975 mg Documented by: Ceftriaxone Sodium (Ceftriaxone 1 Gm Advvial) Confirm Administered Dose 1 gm IV .STK-MED ONE Stop: 01/24/21 21:52 Last Admin: 01/24/21 23:40 Dose: 1 gm Documented by: Dexamethasone (Dexamethasone 4 Mg/Ml 5 Ml Mdv) 6 mg IV Q24H [facility] Last Admin: 01/25/21 09:13 Dose: 6 mg Documented by: Dexamethasone (Dexamethasone 4 Mg/Ml 5 Ml Mdv) 20 mg IVPUSH DAILY [facility] Stop: 01/30/21 09:01 Last Admin: 01/29/21 09:00 Dose: 20 mg Documented by: Dexamethasone (Dexamethasone 4 Mg/Ml 5 Ml Mdv) 14 mg IVPUSH ONETIME ONE Stop: 01/25/21 11:01 Last Admin: 01/25/21 11:11 Dose: 14 mg Documented by: Dexamethasone (Dexamethasone 10 Mg/Ml Sdv) 6 mg IVPUSH ONETIME ONE Stop: 01/30/21 09:01 Last Admin: 01/30/21 09:04 Dose: 6 mg Documented by: Heparin Sodium (Porcine) (Heparin Sodium 5,000 Units/Ml Vial) 5,000 units IVPUSH .BOLUS ONE Stop: 01/23/21 17:44 Last Admin: 01/23/21 18:04 Dose: 5,000 units Documented by: Heparin Sodium (Porcine) (Heparin Sodium 5,000 Units/Ml Vial) 2,500 units IVPUSH .BOLUS ONE; Protocol Stop: 01/24/21 07:27 Last Admin: 01/24/21 07:34 Dose: 2,500 units Documented by: Heparin Sodium (Porcine) (Heparin Sodium 5,000 Units/Ml Vial) 1,500 units IVPUSH .BOLUS ONE Stop: 01/24/21 12:21 Last Admin: 01/24/21 12:27 Dose: 1,500 units Documented by: Heparin Sodium (Porcine) (Heparin Sodium 5,000 Units/Ml Vial) 2,500 units IVPUSH .BOLUS ONE Stop: 01/25/21 06:23 Last Admin: 01/25/21 06:39 Dose: 2,500 units Documented by: Remdesivir 200 mg/ Sodium (Chloride) 250 mls @ 250 mls/hr IV ONETIME ONE Stop: 01/23/21 14:36 Last Admin: 01/23/21 14:56 Dose: 250 mls/hr Documented by: Heparin Sodium/Dextrose (Heparin 25,000 Units In D5w 500 Ml) 25,000 units in 500 mls @ 26 mls/hr IV TITRATE DONATO; Protocol Last Titration: 01/25/21 06:42 Dose: 2,591 units/hr, 51.82 mls/hr Documented by: Remdesivir 100 mg/ Sodium (Chloride) 100 mls @ 100 mls/hr IV Q24H [facility] Stop: 01/27/21 08:44 Last Admin: 01/24/21 08:10 Dose: Not Given Documented by: Remdesivir 100 mg/ Sodium (Chloride) 100 mls @ 100 mls/hr IV Q24H [facility] Stop: 01/27/21 15:59 Last Admin: 01/27/21 17:30 Dose: 100 mls/hr Documented by: Azithromycin 500 mg/ Sodium (Chloride) 250 mls @ 250 mls/hr IV Q24H [facility] Last Admin: 01/26/21 20:23 Dose: 250 mls/hr Documented by: Ceftriaxone Sodium 1 gm/ (Sodium Chloride) 100 mls @ 200 mls/hr IV Q24H [facility] Last Admin: 01/24/21 23:40 Dose: 200 mls/hr Documented by: Sodium Chloride (Normal Saline) Confirm Administered Dose 100 mls @ as directed .ROUTE .STK-[facility] Stop: 01/24/21 21:53 Last Admin: 01/24/21 22:07 Dose: Not Given Documented by: Ceftriaxone Sodium 1 gm/ (Sodium Chloride) 100 mls @ 200 mls/hr IV Q24H [facility] Ceftriaxone Sodium 2 gm/ (Sodium Chloride) 100 mls @ 200 mls/hr IV Q24H [facility] Last Admin: 01/26/21 22:09 Dose: 200 mls/hr Documented by: Sodium Chloride (Normal Saline) Confirm Administered Dose 100 mls @ as directed .ROUTE .STK-MED ONE Stop: 01/25/21 15:20 Last Admin: 01/25/21 15:43 Dose: Not Given Documented by: Influenza Virus Vaccine (Flu Vacc Wy2100-01 36mos Up/Pf 60 Mcg/0.5 Ml Syringe) 60 mcg IM .ONCE ONE Stop: 01/25/21 08:01 Levothyroxine Sodium (Levothyroxine 200 Mcg Tab) 200 mcg PO DAILY [facility] Last Admin: 01/29/21 08:58 Dose: 200 mcg Documented by: Morphine Sulfate (Morphine 2 Mg/Ml Syringe) 2 mg IVPUSH Q4H PRN PRN Reason: Pain (severe 7-10) Stop: 01/26/21 10:14 - Exam Quality Assessment: Reports: DVT Prophylaxis. Denies: Supplemental Oxygen General: Reports: Alert, Oriented, Cooperative HEENT: Reports: Pupils Equal, Pupils Reactive, EOMI Neck: Reports: Supple, Trachea Midline Lungs: Reports: Clear to Auscultation, Normal Respiratory Effort Cardiovascular: Reports: Regular Rate, Regular Rhythm, No Murmurs GI/Abdominal Exam: Normal Bowel Sounds, Soft, Non-Tender, No Distention (Female) Exam: Deferred Rectal (Female) Exam: Deferred Back Exam: Reports: Normal Inspection, Full Range of Motion Extremities: Normal Inspection, No Pedal Edema Skin: Reports: Warm, Dry, Intact Neurological: Reports: No New Focal Deficit Psy/Mental Status: Reports: Alert, Normal Affect
--- NOTE | 2021-02-01 09:55 | CR ---
Chest: Portable view of the chest was obtained. Comparison: Prior chest x-ray of 01/23/21. Patchy areas of increased density are seen on both sides of the chest. Findings are minimally improved from prior exam. Heart is enlarged. Prior cervical spine surgery is noted. Left shoulder prosthesis is seen. Impression: 1. Minimally improved chest when compared to prior exam. Diagnostic code #3
[2021-02-01 14:55] VITALS: BP 136/80; PULSE 81
== END 2021-02-01 14:20 | disposition home or self-care (01) | DRG 137 ==
LOC: JD.ED 13:09 → JD.MS 01-24 22:08
PROVIDERS: ADMIT Internal Medicine; ATTEND Internal Medicine
PROC: 5A09557 Assistance with Respiratory Ventilation, Greater than 96 Consecutive Hours, Continuous Positive Airway Pressure (ICD-10-PCS; principal; 2021-01-24)
PROC: XW0DXM6 Introduction of Baricitinib into Mouth and Pharynx, External Approach, New Technology Group 6 (ICD-10-PCS; 2021-01-24)
PROC: XW033E5 Introduction of Remdesivir Anti-infective into Peripheral Vein, Percutaneous Approach, New Technology Group 5 (ICD-10-PCS; 2021-01-24)
PROC: 3E0DX3Z Introduction of Anti-inflammatory into Mouth and Pharynx, External Approach (ICD-10-PCS; 2021-01-24)
PROC: 3E0333Z Introduction of Anti-inflammatory into Peripheral Vein, Percutaneous Approach (ICD-10-PCS; 2021-01-24)
PROC: 5A0955A Assistance with Respiratory Ventilation, Greater than 96 Consecutive Hours, High Flow/Velocity Cannula (ICD-10-PCS; 2021-01-24)
DX: U07.1 COVID-19 (principal); J12.82 Pneumonia due to coronavirus disease 2019; J96.01 Acute respiratory failure with hypoxia; R79.89 Other specified abnormal findings of blood chemistry; E11.65 Type 2 diabetes mellitus with hyperglycemia; E66.01 Morbid (severe) obesity due to excess calories; Z68.41 Body mass index [BMI] 40.0-44.9, adult; Z79.899 Other long term (current) drug therapy; Z79.01 Long term (current) use of anticoagulants; Z79.890 Hormone replacement therapy
CPT/HCPCS: 36415; 36600; 71045; 71045-26; 80053; 82248; 82728; 82803; 83615; 83735; 84100; 84484; 85007; 85025; 85027; 85379; 85730; 86140; 90686; 93005; 94640; 94660; 94762; A9270-GY; G0008; J0456; J0696; J1100; J1644; J7050; J7620-GY; J8540

== ENCOUNTER 2022-02-10 09:12 | Day surgery (SDC) | payer BC ==
[~2022-02-10 09:12] MED LIST changes: -Bisacodyl 5 MG Tab PO PRN; +Lactated Ringers 1,000 ML IV SCH; -Magnesium Hydroxide 400 MG/5 ML Susp 30 ML Cup PO PRN; -Morphine 2 MG/ML Syringe IVPUSH PRN; -Naloxone 0.4 MG/ML SDV IVPUSH PRN; -Ondansetron 4 MG/2 ML SDV IVPUSH PRN; -Sennosides 8.6 MG Tab PO PRN; +Sodium Chloride 0.9% 10 ML Syringe FLUSH SCH; -ceFAZolin 2 GM in Premix Bag 1 BAG IV SCH
[2022-02-10] MEDS ORDERED: Dexmedetomidine 200 MCG/2 ML SDV ONE (09:50)
[2022-02-10] MEDS ORDERED: Ropivacaine 0.5% 5 MG/ML 30 ML SDV ONE (09:51)
[2022-02-10] MEDS ORDERED: Propofol 200 MG/20 ML SDV ONE ×4 (09:53→12:28)
[2022-02-10] MEDS ORDERED: Midazolam 1 MG/ML 2 ML SDV ONE (09:53)
[2022-02-10] MEDS ORDERED: fentaNYL 100 MCG/2 ML SDV ONE (09:53)
[2022-02-10] MEDS ORDERED: Lidocaine 1% 4 ML ONE (09:54)
[2022-02-10] MEDS ORDERED: Dexamethasone 4 MG/ML 5 ML MDV ONE (09:57)
[2022-02-10] MEDS ORDERED: EPINEPHrine 1 MG/ML SDV ONE (10:00)
[2022-02-10] MEDS ORDERED: Albuterol 0.083% 2.5 MG/3 ML Neb Soln NEB ONE (10:09)
[2022-02-10] MEDS ORDERED: Tranexamic Acid 1,000 MG/10 ML Vial ONE (10:24)
[2022-02-10] MEDS ORDERED: Vancomycin 1 GM SDV ONE (10:24)
[2022-02-10] MEDS ORDERED: Lactated Ringers 1,000 ML ONE (11:46)
[2022-02-10] MEDS ORDERED: ceFAZolin 2 GM Vial ONE (11:51)
[2022-02-10] MEDS ORDERED: Ketamine 500 mg/10 ML MDV ONE (12:06)
[2022-02-10] MEDS ORDERED: Ondansetron 4 MG/2 ML SDV ONE (13:11)
[2022-02-10] MEDS ORDERED: Acetaminophen/oxyCODONE 325-5 MG Tab PO SCH (14:22)
[2022-02-10 14:41] VITALS: BP 149/90; PULSE 70
== END 2022-02-10 14:30 | disposition home or self-care (01) ==
LOC: JD.SDS 09:12
PROVIDERS: ATTEND Orthopaedic Surgery
DX: M19.011 Primary osteoarthritis, right shoulder (principal); E03.9 Hypothyroidism, unspecified; E66.01 Morbid (severe) obesity due to excess calories; G43.909 Migraine, unspecified, not intractable, without status migrainosus; Z79.890 Hormone replacement therapy; Z79.899 Other long term (current) drug therapy; Z88.0 Allergy status to penicillin; Z88.2 Allergy status to sulfonamides; Z98.890 Other specified postprocedural states; Z90.710 Acquired absence of both cervix and uterus; Z87.891 Personal history of nicotine dependence; Z86.16 Personal history of COVID-19; Z79.82 Long term (current) use of aspirin
CPT/HCPCS: 01638; 64415; 73020-26-RT; 73020-RT; 76000; 76000-26; 76942; 97161-GP; A9270-GY; C1713; C1769; C1776; J0171; J0690; J1100; J2250; J2405; J2704; J2795; J3010; J3370; J3490; J7120

== ENCOUNTER 2023-01-19 06:55 | Day surgery (SDC) | payer BC ==
[~2023-01-19 06:55] MED LIST changes: -Acetaminophen 325 MG Tab PO SCH; -Pregabalin 25 MG Cap PO SCH; -oxyCODONE ER 10 MG TAB.ER PO SCH
[2023-01-19] MEDS ORDERED: Ketamine 200 MG/20 ML MDV ONE (07:06)
[2023-01-19] MEDS ORDERED: Propofol 200 MG/20 ML SDV ONE ×2 (07:07→07:08)
[2023-01-19] MEDS ORDERED: Lidocaine 1% 6 ML ONE (07:08)
[2023-01-19 09:22] VITALS: BP 138/90; PULSE 77
== END 2023-01-19 10:10 | disposition home or self-care (01) ==
LOC: JD.SDS 06:55
PROVIDERS: ATTEND Family Medicine
DX: Z12.11 Encounter for screening for malignant neoplasm of colon (principal); K21.00 Gastro-esophageal reflux disease with esophagitis, without bleeding; K29.50 Unspecified chronic gastritis without bleeding; D17.79 Benign lipomatous neoplasm of other sites; K57.30 Diverticulosis of large intestine without perforation or abscess without bleeding; S61.210A Laceration without foreign body of right index finger without damage to nail, initial encounter; E03.9 Hypothyroidism, unspecified; G43.909 Migraine, unspecified, not intractable, without status migrainosus; E66.01 Morbid (severe) obesity due to excess calories; Z86.010 Personal history of colon polyps; Z79.1 Long term (current) use of non-steroidal anti-inflammatories (NSAID); Z79.890 Hormone replacement therapy; Z79.899 Other long term (current) drug therapy; Z88.0 Allergy status to penicillin; Z88.2 Allergy status to sulfonamides; Z88.8 Allergy status to other drugs, medicaments and biological substances; Z87.891 Personal history of nicotine dependence; E66.9 Obesity, unspecified
CPT/HCPCS: 43239; 45378; J2704; J7120; 00813; J3490

== ENCOUNTER 2024-02-08 12:07 | Emergency (ER) | payer BC ==
[2024-02-08 12:29] VITALS: BP 160/98
[2024-02-08] MEDS: Sodium Chloride 0.9% 1,000 ML IV STA (12:58)
[2024-02-08] MEDS: HYDROmorphone 0.5 MG/0.5 ML Syringe IVPUSH ONE (12:59)
[2024-02-08] MEDS: Sodium Chloride 0.9% 10 ML Syringe FLUSH PRN (12:59)
[2024-02-08] MEDS: Ondansetron 4 MG/2 ML SDV IVPUSH ONE (12:59)
[2024-02-08 13:01] LABS: BASOPHILS PERCENT AUTO 0.2 % (0.0-1.0); EOSINOPHILS PERCENT AUTO 0.9 % (0.0-6.0); HEMATOCRIT 38.7 % (37.0-47.0); HEMOGLOBIN 12.8 gm/dl (12.0-16.0); IMMATURE GRAN ABSOLUTE AUTO 0.01 K/mm3 (0.00-0.05); IMMATURE GRAN PERCENT AUTO 0.2 % (0.0-0.4); LYMPHOCYTES ABSOLUTE AUTO 2.1 K/mm3 (1.0-4.8); LYMPHOCYTES PERCENT AUTO 45.6 % (24.0-44.0); MEAN CORPUSCULAR HEMOGLOBIN 30.8 pg (28.0-32.0); MEAN CORPUSCULAR HGB CONC 33.1 g/dl (32.0-36.0); MEAN PLATELET VOLUME 10.1 fl (9.4-12.3); MONOCYTES ABSOLUTE AUTO 0.3 K/mm3 (0.0-0.8); MONOCYTES PERCENT AUTO 6.9 % (0.0-8.0); NEUTROPHILS ABSOLUTE AUTO 2.1 K/mm3 (1.8-7.7); NEUTROPHILS PERCENT AUTO 46.2 % (41.0-71.0); PLATELET COUNT,PLT 216 K/mm3 (150-400); RED BLOOD CELL COUNT 4.16 M/mm3 (4.10-5.30); WHITE BLOOD CELL COUNT,WBC 4.63 K/mm3 (3.9-11.3)
[2024-02-08 13:09] VITALS: PULSE 68
[2024-02-08 13:27] LABS: A/G RATIO 0.9 (1-2); ALBUMIN 4.1 g/dl (3.4-5.0); ANION GAP 11.9 (5-15); BILIRUBIN TOTAL 0.5 mg/dL (0.2-1.0); BUN/CREATININE RATIO 16.7 (14-18); CALCIUM 9.6 mg/dL (8.5-10.1); CREATININE 0.9 mg/dL (0.55-1.02); EST CRCL DRUG DOSING (CG) 64.64 mL/min; POTASSIUM,K 3.9 mEq/L (3.5-5.1); PROTEIN TOTAL,TP 8.7 g/dl (6.4-8.2)
== END 2024-02-08 15:46 | disposition home or self-care (01) ==
LOC: JD.ED 12:07
DX: R10.11 Right upper quadrant pain (principal); K21.9 Gastro-esophageal reflux disease without esophagitis; E03.9 Hypothyroidism, unspecified; E66.9 Obesity, unspecified; Z68.39 Body mass index [BMI] 39.0-39.9, adult; Z86.16 Personal history of COVID-19; Z87.891 Personal history of nicotine dependence; Z88.0 Allergy status to penicillin; Z88.2 Allergy status to sulfonamides; Z88.6 Allergy status to analgesic agent
CPT/HCPCS: 36415; 76705; 80053; 83690; 85025; 96361; 96374; 96375; 99284; J1171; J2405; J3490; J7030

== ENCOUNTER 2024-04-25 08:41 | Day surgery (SDC) | payer BC ==
[~2024-04-25 08:41] MED LIST changes: -Lactated Ringers 1,000 ML IV SCH; -Lidocaine 1%/Sod Bicarbonate in NS 8.4% 1 ML Syringe IDERM PRN
[2024-04-25] MEDS: Lactated Ringers 1,000 ML IV SCH (09:30)
[2024-04-25] MEDS ORDERED: Propofol 200 MG/20 ML SDV ONE (11:04)
[2024-04-25] MEDS ORDERED: Midazolam 1 MG/ML 2 ML SDV ONE (11:04)
[2024-04-25] MEDS ORDERED: fentaNYL 100 MCG/2 ML SDV ONE (11:04)
[2024-04-25] MEDS ORDERED: Lidocaine 1% 4 ML ONE (11:15)
[2024-04-25] MEDS ORDERED: Ondansetron 4 MG/2 ML SDV ONE (11:40)
[2024-04-25] MEDS ORDERED: dexmedeTOMIDine HCl 200 MCG/2 ML SDV ONE (11:43)
[2024-04-25] MEDS: Bupivacaine 0.5% 30 ML SDV ONE (11:56)
[2024-04-25] MEDS: Lidocaine 1% with EPINEPHrine 1:100,000 20 ML MDV ONE (11:56)
[2024-04-25] MEDS: EPINEPHrine 1 MG/ML SDV ONE (11:56)
[2024-04-25 13:38] VITALS: BP 141/69; PULSE 66
== END 2024-04-25 13:00 | disposition home or self-care (01) ==
LOC: JD.SDS 08:41
PROVIDERS: ATTEND Surgery
DX: D17.1 Benign lipomatous neoplasm of skin and subcutaneous tissue of trunk (principal); K21.9 Gastro-esophageal reflux disease without esophagitis; E03.9 Hypothyroidism, unspecified; Z79.890 Hormone replacement therapy; Z79.899 Other long term (current) drug therapy; Z88.2 Allergy status to sulfonamides; Z88.0 Allergy status to penicillin
CPT/HCPCS: 21931; J0171; J0665; J2250; J2405; J2704; J3010; J7120; 00300; J3490